=== PATIENT | female | born 1945 | race Caucasian/White ===

== ENCOUNTER 2020-08-27 22:26 | Inpatient (IN) | payer MEDICARE, MEDICAID, SELFPAY ==
[2020-08-27 22:41] VITALS: BP 113/66; PULSE 96; RESP 18; TEMP 36.6; O2SAT 99; BMI 31.8
--- NOTE | 2020-08-27 23:15 | PC.NURSE ---
spoke with son Berto concerning mother mental status. he stated she has become more and more confused as of late pt able to converse but drifts away from topic of conversation and vague at times.
--- NOTE | 2020-08-27 23:21 | XR_ITS ---
EXAMINATION: WRIST 3 VIEWS, RIGHT CLINICAL INFORMATION: Pain and deformity after fall. COMPARISON: None. TECHNIQUE: AP, lateral and oblique views of the right wrist are provided. FINDINGS: There is dorsal angulation to a distal right radial fracture. There is a nondisplaced ulnar styloid fracture. There is associated soft tissue swelling and mild anterior displacement of the pronator fat pad. The proximal carpal rows intact.. XR/XR wrist RT min 3V IMPRESSION: Dorsal angulation to a distal right radial fracture. Nondisplaced ulnar styloid fracture. Associated soft tissue swelling.
--- NOTE | 2020-08-27 23:21 | ECG_ITS ---
Test Reason : FALL Blood Pressure : / mmHG Vent. Rate : 092 BPM Atrial Rate : 092 BPM P-R Int : 122 ms QRS Dur : 068 ms QT Int : 338 ms P-R-T Axes : 082 024 034 degrees QTc Int : 417 ms Normal sinus rhythm Low voltage QRS Possible Inferior infarct , age undetermined Cannot rule out Anterior infarct , age undetermined Abnormal ECG No previous ECGs available Referred By: Maya Ngo Electronically Signed By:NATHAN ELIZABETH MD
--- NOTE | 2020-08-27 23:23 | ED.FALL ---
HPI - Fall General Chief Complaint: Fall Stated Complaint: fall Time Seen by Provider: 08/27/20 23:21 Source: patient and EMS Mode of arrival: EMS Limitations: altered mental status History of Present Illness HPI Narrative: 75 y/o female with history of anxiety, depression, hypothyroidism, hx prior falls MD complaint: fall Onset (ago): unknown Related Data Home Medications Medication Instructions Recorded Confirmed paroxetine HCl 30 mg tablet 30 mg PO DAILY 06/06/20 Previous Rx's Medication Instructions Recorded nabumetone 500 mg tablet 500 mg PO BID #180 tab 06/06/20 levothyroxine 25 mcg tablet 25 mcg PO DAILY #90 tab 06/07/20 clonazepam 1 mg tablet 1 mg PO .four times a day PRN 90 08/08/20 Days #315 tab Allergies Allergy/AdvReac Type Severity Reaction Status Date / Time Iodinated Contrast Media Allergy Severe UNKNOWN Verified 06/11/20 08:46 [CONTRAST, IV] nitrofurantoin Allergy Unknown UNKNOWN Verified 06/11/20 08:46 [From MACRODANTIN] phenytoin [Dilantin] Allergy Unknown anaphylaxis Verified 06/11/20 08:46 Sulfa (Sulfonamide Allergy Unknown anaphylaxis Verified 06/11/20 08:46 Antibiotics) [facility] Past Medical History Surgical History No pertinent past surgical history Family History Family History (Updated 06/11/20 @ 08:47 by Savita Greenberg [facility]) Father Stomach cancer Mother Medical history unknown Physical Exam Vital Signs: Vital Signs: Last Vital Signs Temp 97.9 F 08/27/20 22:41 Pulse 96 08/27/20 22:41 Resp 18 08/27/20 22:41 BP 113/66 08/27/20 22:41 Pulse Ox 99 08/27/20 22:41 Body Mass Index 31.8 Discharge Plan Discharge Prescriptions: No Action nabumetone 500 mg tablet 500 mg PO BID Qty: 180 RF: 0 paroxetine HCl 30 mg tablet 30 mg PO DAILY RF: 0 levothyroxine 25 mcg tablet 25 mcg PO DAILY Qty: 90 RF: 1 clonazepam 1 mg tablet 1 mg PO .four times a day PRN (Reason: anxiety) 90 Days Qty: 315 RF: 0
--- NOTE | 2020-08-27 23:41 | ED_ITS ---
HPI - General Adult General Chief complaint: Fall Stated complaint: fall Time Seen by Provider: 08/27/20 23:21 Source: patient and EMS Mode of arrival: EMS Limitations: altered mental status History of Present Illness HPI narrative: 75-year-old female who is brought to emergency room by ambulance for evaluation of fall with unknown down time. The patient appears to be delusional and is having difficulty recounting exactly when she fell. According to reverse unit operator fisherman report there was a wellness check by neighbors and they found the patient down. Patient reported to the paramedics that she fell a few days ago. The patient told me that she was sitting at the kitchen table and fell. She then has a vague story and states that she was crawling around on the floor with a bunch of infants and older children and had no access to water. At the time of my evaluation, she is oriented to person and place. She is not able to give me any other specific details about her fall. She is currently complaining of feeling very thirsty and complaining of pain in her right wrist. She has no other complaints. I spoke to the patient's son, Berto who can be reached at . He states that his mother lives alone and he was aware that the patient fell and was found in her bathroom. He is not certain when the patient fell. He states that his mother does not have a history of dementia or memory deficits. The patient does have a history of temporal lobe epilepsy, hypothyroidism, depression, migraines, and mood disorders. She also has nonspecific arthritis. Related Data Home Medications Medication Instructions Recorded Confirmed paroxetine HCl 30 mg tablet 30 mg PO DAILY 06/06/20 Previous Rx's Medication Instructions Recorded nabumetone 500 mg tablet 500 mg PO BID #180 tab 06/06/20 levothyroxine 25 mcg tablet 25 mcg PO DAILY #90 tab 06/07/20 clonazepam 1 mg tablet 1 mg PO .four times a day PRN 90 08/08/20 Days #315 tab Allergies Allergy/AdvReac Type Severity Reaction Status Date / Time Iodinated Contrast Media Allergy Severe UNKNOWN Verified 06/11/20 08:46 [CONTRAST, IV] nitrofurantoin Allergy Unknown UNKNOWN Verified 06/11/20 08:46 [From MACRODANTIN] phenytoin [Dilantin] Allergy Unknown anaphylaxis Verified 06/11/20 08:46 Sulfa (Sulfonamide Allergy Unknown anaphylaxis Verified 06/11/20 08:46 Antibiotics) Review of Systems Review of Systems: Yes Unobtainable due to mental status (The patient is delusional) Neurologic: Reports Abnormal speech present and Reports confusion Psychiatric: Psychiatric: Reports confusion [facility] Past Medical History [facility] Narrative: Past medical history is unobtainable secondary to her delusional state, she states that she is a former smoker, she denies alcohol and drug use. She states that she was living with her son but he suddenly in September of 2019. Surgical History No pertinent past surgical history Family History Family History (Updated 06/11/20 @ 08:47 by Savita Greenberg [facility]) Father Stomach cancer Mother Medical history unknown Social History Social History Advance Directives: No Physical Exam Vital Signs: Vital Signs: Last Vital Signs Temp 97.9 F 08/27/20 22:41 Pulse 96 08/27/20 22:41 Resp 18 08/27/20 22:41 BP 113/66 08/27/20 22:41 Pulse Ox 99 08/27/20 22:41 Body Mass Index 31.8 Const: General: cooperative, confusion and poor hygiene Orientation/consciousness: oriented to person, oriented to place and confusion Limitations: altered mental status (Delusional) HENMT: Head: Yes normal to inspection, Yes normocephalic and Yes atraumatic Ears: external ears normal General nose exam: Normal external nose present Face and sinus: Yes normal facial exam Mouth: Abnormal oral and palatal mucosa present (Very dry mucous membranes) Throat: Yes posterior oropharynx normal Eyes: Alignment and Position: alignment normal Periorbital: periorbital findings normal Eyelids: Yes eyelids normal Conjunctivae: conjunctivae normal Sclerae: scleral abnormal left hemorrhage (Lateral up to iris) Corneas: corneas normal Pupils: Equal, round and reactive pupils present EOM: EOMs intact bilaterally Direct Ophthalmoscopy: normal light reflex Neck: Neck: Yes full ROM, Yes no lymphadenopathy, Yes no meningeal signs, Yes trachea midline and Yes supple Chest: Chest palpation & inspection: normal inspection of the chest and normal palpation of entire chest wall Resp: Effort & Inspection: normal respiratory effort and able to speak in complete sentences Auscultation: clear to auscultation bilaterally Cardio: Rate: regular rate Rhythm: regular rhythm Heart sounds: S1 normal heart sound present, S2 normal heart sound present and no murmurs GI: Inspection: Yes normal to inspection Palpation (GI): Soft to palpation, nontender, no guarding, not rigid and No hepatosplenomegaly present : General: Yes no CVA tenderness Back/Spine/Pelvis: Back: no CVA tenderness Cervical Spine: normal cervical lordosis Thoracic/Lumbar Spine: thoracic and lumbar spine normal to inspection Skin: General skin exam: turgor decreased and other (Very dry skin) Lesions: no lesions Rashes: no rashes Wounds: no wounds Neuro: General: oriented to person, oriented to place, no meningeal signs and confusion Cranial nerves: Yes Equal, round and reactive pupils present Speech: Abnormal speech present Motor exam (neuro): 5/5 motor strength present throughout Extrem: General: Yes normal to inspection, Yes full ROM and Yes other (Tender right wrist) Psych: Appearance: well kempt Mental Status: mental status grossly normal Speech and movement: Normal speech and movement present Affect: normal affect Attitude: cooperative Thought process: Normal thought process present Thought content: Normal thought content present Course Course Course Narrative: 75-year-old female who presents emergency department for evaluation of unwitnessed fall at home with unwitnessed down time. On examination the patient's mucous membranes are very dry, she has poor skin turgor and very dry skin as well suggesting that she is volume depleted and deh ydrated. The patient does have some right wrist tenderness otherwise are no other acute traumatic injuries that I can find on exam. The patient was given water to drink. I did order CT scan of the head and neck, laboratory evaluation was also ordered. Patient will be treated with normal saline IV x1 L. 0213: The patient's CT scan head and cervical spine are unremarkable. X-ray of the right wrist did reveal a distal radius fracture with dorsal angulation and a nondisplaced ulnar fracture. This fracture was reduced by me with the assistance of the CHRISTOFER, Maya Ngo. Post reduction films appear to be adequate on my review. I did discuss the case with the covering hospitalist, Dr. Hernandez would like to admit the patient after the workup is complete. The patient's laboratory evaluation is pending, therefore the patient's care was turned over to my colleague, Dr. Shavonne Trejo. Twelve lead EKG done at 2358: Normal sinus rhythm with a rate of 92, normal SD, QRS and QTC intervals, Q-waves in lead V1 through V3 consistent with anterior infarct age undetermined, nonspecific T-wave abnormalities, no old EKG for comparison. Procedures Orthopedic Fracture Reduction Right distal radial/ulnar fracture: Time Out Performed: No Side: right Fracture Reduction Location: radius (Distal) and ulna (Distal) Analgesia: hematoma block (10 mL 1% lidocaine) Technique: traction/counter-traction Post Reduction X-rays Demonstrate: acceptable reduction Post-reduction neuro exam: intact Post-reduction vascular exam: intact Splint Applied: Yes Additional Comments: A 3 in by 35 in ortho glass sugar-tong splint was applied. Prior to applying the splint, a cast sleeve and 3 layers of cast pad ding were applied to the patient's arm. Medical Decision Making Lab Data Labs: Lab Results 08/28/20 Range/Units 02:10 Urine Color CHANELLE Urine Appearance HAZY Urine pH 6.0 (5.0-8.0) Ur Specific [place] >= 1.030 H (1.005-1.025) Urine Protein 2+ H (NEG-TRACE) MG/DL Urine Glucose (UA) NEG (NEG) MG/DL Urine Ketones >=80 (NEG) MG/DL Urine Blood 3+ H (NEG) Urine Nitrite NEG (NEG) Ur Leukocyte Esterase 1+ H (NEG) Urine RBC 1-4 (0) /HPF Urine WBC 15-29 H (0-4) /HPF Ur Squamous Epith Cells 2+ /LPF Urine Bacteria 3+ /LPF Urine Mucus 1+ /LPF Imaging Data CT head/cervical spine: Attestation: I personally reviewed and interpreted this imaging study as follows: My impression: No acute fracture or bleed Radiologist's impression: No evidence for acute intracranial injury. Age- appropriate cerebral atrophy. No evidence for acute injury to the cervical spine. Age-appropriate degenerative change within the lower cervical spine. Automated exposure control (Care Dose) Adjustment of the mA and/or kv according to patient size (this includes techniques or standardized protocols for targeted exams where dose is matched to indication / reason for exam; i.e. extremities or head). Dictated By:SAHARA CISNEROS MDSigned By:<Electronically signed by SAHARA CISNEROS MD in OV>08/28/20 0135 Right wrist: Attestation: I personally reviewed and interpreted this imaging study as follows: My impression: Dorsal angulation distal radius fracture nondisplaced ulnar styloid fracture Radiologist's impression: There is dorsal angulation to a distal right radial fracture. There is a nondisplaced ulnar styloid fracture. There is associated soft tissue swelling and mild anterior displacement of the pronator fat pad. The proximal carpal rows intact.. XR/XR wrist RT min 3V IMPRESSION: Dorsal angulation to a distal right radial fracture. Nondisplaced ulnar styloid fracture. Associated soft tissue swelling. Discharge Plan Discharge Prescriptions: No Action nabumetone 500 mg tablet 500 mg PO BID Qty: 180 RF: 0 paroxetine HCl 30 mg tablet 30 mg PO DAILY RF: 0 levothyroxine 25 mcg tablet 25 mcg PO DAILY Qty: 90 RF: 1 clonazepam 1 mg tablet 1 mg PO .four times a day PRN (Reason: anxiety) 90 Days Qty: 315 RF: 0
[2020-08-28] VITALS (7 sets, daily range): BP systolic 108–148; BP diastolic 46–78; PULSE 86–109; RESP 16–20; TEMP 36.4–36.8; O2SAT 95–99
--- NOTE | 2020-08-28 | CT_ITS ---
EXAMINATIONS: CT HEAD WITHOUT CONTRAST AND CT CERVICAL SPINE WITHOUT CONTRAST CLINICAL INFORMATION: Fall. Trauma. COMPARISON: None. TECHNIQUE: Contiguous helical images of the brain were obtained without IV contrast. Contiguous helical images of the cervical spine were obtained without IV contrast. Multiplanar reconstructions were performed. DLP: 1046 mGy-cm. FINDINGS: There are no pathologic extra-axial fluid collections. The lateral, third, fourth ventricles are prominent, though age-appropriate and concordant with the appearance of the sulci. There is no evidence for acute intraparenchymal hemorrhage or infarct. There is neither mass nor mass effect. There is no shift of midline structures. There is near complete opacification to the sphenoid sinus. The paranasal sinuses and mastoid air cells are otherwise clear. There are no osseous lesions. The cervical vertebra are in normal alignment. There is disc height loss at C4/C5, C5/C6 and C6/C7. Disc heights and vertebral heights are otherwise well-preserved. There are no fractures. There is no prevertebral soft tissue swelling. There is no cervical lymphadenopathy. The visualized lung apices are clear. CT/CT cervical spine wo con IMPRESSION: No evidence for acute intracranial injury. Age-appropriate cerebral atrophy. No evidence for acute injury to the cervical spine. Age-appropriate degenerative change within the lower cervical spine. Automated exposure control (Care Dose) Adjustment of the mA and/or kv according to patient size (this includes techniques or standardized protocols for targeted exams where dose is matched to indication / reason for exam; i.e. extremities or head).
--- NOTE | 2020-08-28 01:38 | XR_ITS ---
EXAMINATION: XR WRIST, RIGHT CLINICAL INFORMATION: Postreduction. COMPARISON: 08/27/2020. TECHNIQUE: AP and lateral views of the right wrist. FINDINGS: There is improved alignment to the known distal right radial and ulnar fractures status post reduction. Alignment is adequate. An overlying cast is in place which obscures fine bony detail. XR/XR wrist RT 2V IMPRESSION: Improved alignment in the distal right radial and ulnar fracture status post reduction with cast placement.
[2020-08-28 02:22] LABS: Appearance Urine HAZY; Color Urine AMBER; Glucose Urine UA NEG (NEG); Leukocyte Esterase Urine 1+ (NEG); Nitrite Urine NEG (NEG); Specific Gravity - Urine >= 1.030 (1.005-1.025); UACC Culture Trigger YES; Urine Blood 3+ (NEG); Urine Ketones >=80 MG/DL (NEG); Urine Protein 2+ MG/DL (NEG-TRACE)
[2020-08-28 02:30] LABS: Bacteria Urine 3+ /LPF; Mucus Urine 1+ /LPF; Squamous Epithelial Cell Urine 2+ /LPF
--- NOTE | 2020-08-28 02:37 | PC.NURSE ---
right hand fingers cool, purple, with decreased capillary refill. the cast is tight at the proximal end. provider made aware and was removed and redone with a 3inch. pt feels the relief already.
[2020-08-28 03:07] LABS: Basophils Percent Auto 0.1 % (0-2); Eosinophils Percent Auto 0.1 % (0-4); Hemoglobin 17.7 g/dl (12.0-16.0); Imm Gran Abs Auto 0.06 X10*3/uL (0.00-0.03); Imm Gran Pct Auto 0.4 % (0.0-0.4); Lymphocytes Absolute Auto 0.6 X10*3/uL (1.2-4.9); Lymphocytes Percent Auto 3.7 % (20-40); Mean Corpuscular Hemoglobin 30.1 pg (27.0-33.0); Mean Corpuscular Volume 88.3 fL (80-98); Mean Platelet Volume 9.5 fL (9.4-12.3); Monocytes Absolute Auto 1.7 X10*3/uL (0.1-1.2); Monocytes Percent Auto 10.8 % (2-11); Neutrophils Percent Auto 84.9 % (45-73); Platelet Count 277 X10*3/uL (160-400); Red Blood Count 5.89 X10*6/uL (4.20-5.50); Red Cell Distribution Width 13.4 % (11.0-16.0); SCAN SMEAR FLAG 1; White Blood Count 15.3 X10*3/uL (4.8-10.8)
[2020-08-28 03:20] LABS: MANUAL DIFF FLAG SCAN
[2020-08-28 03:21] LABS: INTERNATIONAL NORM RATIO 1.3 (0.9-1.1); Prothrombin Time 15.2 SEC (10.8-13.0)
--- NOTE | 2020-08-28 03:21 | PC.NURSE ---
pt is a difficult iv stick, 2 rn's attempted and a 3rd is going to try, all labs obtained and sent. provider is aware of this.
[2020-08-28 03:23] LABS: Partial Thromboplastin Time 33.3 SEC (24.1-38.0)
[2020-08-28 03:32] LABS: Lactic Acid 1.5 mmol/L (0.5-2.0)
[2020-08-28 03:39] LABS: Alanine Aminotransferase 71 U/L (0-31); Albumin Level 4.4 g/dL (3.5-5.0); Alkaline Phosphatase 61 U/L (39-117); Anion Gap 20 (12-20); Aspartate Amino Transferase 145 U/L (5-31); Bilirubin Direct 0.3 mg/dL (0.0-0.5); Bilirubin Total 1.1 mg/dL (0.0-1.0); Blood Urea Nitrogen 43 mg/dL (9-16); Calcium 9.5 mg/dL (8.4-10.2); Carbon Dioxide 22 mmol/L (22-29); Chloride 106 mmol/L (96-108); Creatinine Clr Calc Pharmacy 65.5; Estimated Glomerular Filt Rate > 60; Glucose Random 117 mg/dL (60-115); Magnesium 2.9 mg/dL (1.6-2.6); Potassium 4.2 mmol/L (3.3-5.1); Sodium 144 mmol/L (135-145); Total Protein 7.1 g/dL (6.5-8.0)
--- NOTE | 2020-08-28 03:39 | XR_ITS ---
EXAMINATION: CHEST 1 VIEW CLINICAL INFORMATION: Cough. COMPARISON: None. TECHNIQUE: An AP view of the chest is provided. FINDINGS: The cardiac silhouette is not enlarged. The mediastinal and hilar contours are unremarkable. There are neither pleural effusions nor pneumothoraces. There are no consolidations. The osseous structures are unremarkable. XR/XR chest 1V IMPRESSION: No evidence for acute disease.
[2020-08-28 03:40] LABS: SLIDE REVIEW VERIFIED
[2020-08-28 03:46] LABS: Troponin-I High Sensitivity 17.9 ng/L (<3.5-17.0)
[2020-08-28] MEDS: 0.9 % Sodium Chloride 1,000 ML 999 ML IVCONT (03:47)
--- NOTE | 2020-08-28 03:47 | US_ITS ---
EXAMINATION: ABDOMINAL ULTRASOUND LIMITED CLINICAL INFORMATION: Right upper quadrant pain. COMPARISON: None. TECHNIQUE: Real-time imaging of the right upper quadrant abdominal viscera. FINDINGS: PANCREAS: The visualized pancreatic head and body are normal in appearance. The remainder of the pancreas is obscured from visualization by the overlying bowel gas. LIVER: The liver is of normal size and echogenicity without intrahepatic biliary ductal dilation. Within the right lobe of the liver, there is an approximate 17 mm cyst. GALLBLADDER: There are a few small calculi within the gallbladder lumen. The gallbladder is physiologically distended without evidence of echogenic bile, polyps, wall thickening or pericholecystic fluid. COMMON BILE DUCT: Normal in caliber measuring 0.2 cm in diameter. RIGHT KIDNEY: Normal. No hydronephrosis. No renal calculi or focal parenchymal lesions. The kidney measures 10.2 cm in maximum dimension. FREE FLUID: None. US/US abdomen limited IMPRESSION: Cholelithiasis without sonographic manifestations of cholecystitis.
[2020-08-28] MEDS: cefTRIAXone sodium 1 GM in 0.9 % Sodium Chloride 50 ML IV (03:53)
[2020-08-28] MEDS: Lidocaine HCl 1 % 20 ML VIAL 5 ML INFILTRATI ×2 (03:54)
[2020-08-28 03:57] LABS: Thyroid Stimulating Hormone 0.89 uIU/mL (0.32-4.0)
[2020-08-28 04:27] LABS: COVID-19 Test Negative (Negative)
--- NOTE | 2020-08-28 10:48 | P.HPHOSP_ITS ---
History of Present Illness Date of Service: 08/28/20 Chief Complaint: Fall 75 year old women presenting after a fall. Patient was quite vague about what happened. Her fall time is unknown as well as her downtime. Apparently there was a wellness check from a neighbor and found the patient on the floor. Patient reported to the paramedics that she fell a few days ago. Apparently she was sitting at her kitchen table and fell. She may have been crawling around the floor with no access to food or water. Her son, Berto, was unaware of when the patient may have fallen. Berto who can be reached at . He states that his mother lives alone and he was aware that the patient fell and was found in her bathroom. He is not certain when the patient fell. He states that his mother does not have a history of dementia or memory deficits. Review of Systems Review of Systems: Denies any recent fever chills or decrease in appetite respiratory denies any shortness of breath coverage production cardiovascular is adjustment of any PND or edema gastrointestinal denies any dysphagia abdominal pain nausea vomiting or diarrhea genitourinary denies any dysuria frequency or hematuria musculoskeletal denies any joint pain or swelling neuropsych denies any weakness or seizures all other systems reviewed are negative [facility] Medical History (Updated 08/28/20 @ 12:31 by Anh Moreno NP) Anxiety Arthritis Depression Epilepsy Hypothyroidism Family History (Updated 06/11/20 @ 08:47 by Savita Greenberg [facility]) Father Stomach cancer Mother Medical history unknown Surgical History No pertinent past surgical history Social History Advance Directives: No Meds Allergies Allergy/AdvReac Type Severity Reaction Status Date / Time Iodinated Contrast Media Allergy Severe UNKNOWN Verified 06/11/20 08:46 [CONTRAST, IV] nitrofurantoin Allergy Unknown UNKNOWN Verified 06/11/20 08:46 [From MACRODANTIN] phenytoin [Dilantin] Allergy Unknown anaphylaxis Verified 06/11/20 08:46 Sulfa (Sulfonamide Allergy Unknown anaphylaxis Verified 06/11/20 08:46 Antibiotics) Home Medications Medication Instructions Recorded Confirmed Type paroxetine HCl 30 mg tablet 30 mg PO DAILY 06/06/20 08/28/20 History clonazepam 1 mg PO TID PRN 08/28/20 08/28/20 History levothyroxine 25 mcg PO DAILY@0630 08/28/20 08/28/20 History Physical Exam Vital Signs and Narrative: Vital Signs: Last Vital Signs Temp 98.3 F 08/28/20 02:00 Pulse 102 H 08/28/20 06:00 Resp 19 08/28/20 06:00 BP 132/65 08/28/20 06:00 Pulse Ox 98 08/28/20 06:00 Body Mass Index 31.8 Appearing disheveled head is normocephalic atraumatic eyes left eye injected, no visual disturbances, no appearance of corneal damage mouth throat mucous membranes are intact and dry neck is supple no lymphadenopathy, no JVD noted lung sounds are clear to auscultation heart regular rate rhythm, clear S1, S2 positive bowel sounds, abdomen is soft, nontender neuro patient is alert x3, vague, no focal deficits Results Labs CBC and Chem 7: 08/28/20 02:59 08/28/20 02:59 Labs: Laboratory Results - last 24 hr 08/28/20 08/28/20 08/28/20 02:10 02:59 02:59 MCV 88.3 MCH 30.1 MCHC 34.0 RDW 13.4 Plt Count 277 MPV 9.5 Immature Gran % (Auto) 0.4 Neut % (Auto) 84.9 H Lymph % (Auto) 3.7 L Baker % (Auto) 10.8 Eos % (Auto) 0.1 Baso % (Auto) 0.1 Lymph # (Auto) 0.6 L Baker # (Auto) 1.7 H Eos # (Auto) 0.0 Baso # (Auto) 0.0 Abs Immat Gran (auto) 0.06 H Absolute Neuts (auto) 13.0 H Absolute Nucleated RBC 0.000 Nucleated RBC % (auto) 0.0 Smear Tech's Comments VERIFIED PT 15.2 H INR 1.3 H APTT 33.3 Anion Gap Estim Creat Clear Calc Estimated GFR Random Glucose Lactic Acid Calcium Magnesium Total Bilirubin Direct Bilirubin AST ALT Alkaline Phosphatase Total Creatine Kinase Troponin I High Sens Total Protein Albumin TSH Urine Color CHANELLE Urine Appearance HAZY Urine pH 6.0 Ur Specific [place] >= 1.030 H Urine Protein 2+ H Urine Glucose (UA) NEG Urine Ketones >=80 Urine Blood 3+ H Urine Nitrite NEG Ur Leukocyte Esterase 1+ H Urine RBC 1-4 Urine WBC 15-29 H Ur Squamous Epith Cells 2+ Urine Bacteria 3+ Urine Mucus 1+ COVID-19 (JERZY) COVID-19 Clin Com 08/28/20 08/28/20 08/28/20 02:59 02:59 02:59 MCV MCH MCHC RDW Plt Count MPV Immature Gran % (Auto) Neut % (Auto) Lymph % (Auto) Baker % (Auto) Eos % (Auto) Baso % (Auto) Lymph # (Auto) Baker # (Auto) Eos # (Auto) Baso # (Auto) Abs Immat Gran (auto) Absolute Neuts (auto) Absolute Nucleated RBC Nucleated RBC % (auto) Smear Tech's Comments PT INR APTT Anion Gap 20 Estim Creat Clear Calc 65.5 Estimated GFR > 60 Random Glucose 117 H Lactic Acid 1.5 Calcium 9.5 Magnesium 2.9 H Total Bilirubin 1.1 H Direct Bilirubin 0.3 AST 145 H ALT 71 H Alkaline Phosphatase 61 Total Creatine Kinase 4459 H Troponin I High Sens 17.9 H Total Protein 7.1 Albumin 4.4 TSH 0.89 Urine Color Urine Appearance Urine pH Ur Specific [place] Urine Protein Urine Glucose (UA) Urine Ketones Urine Blood Urine Nitrite Ur Leukocyte Esterase Urine RBC Urine WBC Ur Squamous Epith Cells Urine Bacteria Urine Mucus COVID-19 (JERZY) COVID-19 [employer] Com 08/28/20 08/28/20 02:59 04:05 MCV MCH MCHC RDW Plt Count MPV Immature Gran % (Auto) Neut % (Auto) Lymph % (Auto) Baker % (Auto) Eos % (Auto) Baso % (Auto) Lymph # (Auto) Baker # (Auto) Eos # (Auto) Baso # (Auto) Abs Immat Gran (auto) Absolute Neuts (auto) Absolute Nucleated RBC Nucleated RBC % (auto) Smear Tech's Comments PT INR APTT Anion Gap Estim Creat Clear Calc Estimated GFR Random Glucose Lactic Acid Calcium Magnesium Total Bilirubin Direct Bilirubin AST ALT Alkaline Phosphatase Total Creatine Kinase Cancelled Troponin I High Sens Total Protein Albumin TSH Urine Color Urine Appearance Urine pH Ur Specific [place] Urine Protein Urine Glucose (UA) Urine Ketones Urine Blood Urine Nitrite Ur Leukocyte Esterase Urine RBC Urine WBC Ur Squamous Epith Cells Urine Bacteria Urine Mucus COVID-19 (JERZY) Negative COVID-19 Clin Com See Note Imaging Radiologist's Impressions: Impressions Wrist X-Ray 08/27/20 23:21 IMPRESSION: Dorsal angulation to a distal right radial fracture. Nondisplaced ulnar styloid fracture. Associated soft tissue swelling. Cervical Spine CT 08/28/20 00:00 IMPRESSION: No evidence for acute intracranial injury. Age-appropriate cerebral atrophy. No evidence for acute injury to the cervical spine. Age-appropriate degenerative change within the lower cervical spine. Automated exposure control (Care Dose) Adjustment of the mA and/or kv according to patient size (this includes techniques or standardized protocols for targeted exams where dose is matched to indication / reason for exam; i.e. extremities or head). Head CT 08/28/20 00:00 IMPRESSION: No evidence for acute intracranial injury. Age-appropriate cerebral atrophy. No evidence for acute injury to the cervical spine. Age-appropriate degenerative change within the lower cervical spine. Automated exposure control (Care Dose) Adjustment of the mA and/or kv according to patient size (this includes techniques or standardized protocols for targeted exams where dose is matched to indication / reason for exam; i.e. extremities or head). Wrist X-Ray 08/28/20 01:38 IMPRESSION: Improved alignment in the distal right radial and ulnar fracture status post reduction with cast placement. Chest X-Ray 08/28/20 03:39 IMPRESSION: No evidence for acute disease. Abdomen Ultrasound 08/28/20 03:47 IMPRESSION: Cholelithiasis without sonographic manifestations of cholecystitis. Assessment and Plan (1) Fall: Qualifiers: Encounter type: initial encounter Qualified Code(s): W19.XXXA - Unspecified fall, initial encounter Status: Acute (2) Rhabdomyolysis: Qualifiers: Encounter type: initial encounter Rhabdomyolysis type: traumatic Qualified Code(s): T79.6XXA - Traumatic ischemia of muscle, initial encounter Status: Acute (3) Acute UTI: Status: Acute 75-year-old woman presented to the ER after a fall. She is noted to have mild rhabdomyolysis, sepsis secondary to UTI and transaminitis. Sepsis. Tachycardia, leukocytosis, normal lactic acid. Follow blood cultures. UTI. Rocephin, follow urine cultures. Rhabdomyolysis. Secondary to fall. IV fluids, check CK tomorrow, physical therapy evaluation. Transaminitis. Likely related to dehydration, follow liver function, IV fluids. Fall, weakness. Physical therapy evaluation. Hypothyroidism. Continue levothyroxine Dementia/anxiety. Continue clonazepam and paroxetine. DVT prophylaxis with heparin Discussed witH Dr. Bunny Boateng code
[2020-08-28] MEDS: Heparin Sodium,Porcine 5,000 UNIT/ML VIAL 5000 UNIT SUBCUT (15:12)
[2020-08-28] MEDS: 0.9 % Sodium Chloride 1,000 ML 100 ML IVCONT (15:13)
--- NOTE | 2020-08-28 17:13 | PM.EVENT ---
Event Note Date of Service: 08/28/20 Event Note: 75-year-old female with past medical history of hypothyroidism, depression ,temporal lobe epilepsy, migraine and mood disorder was brought into [facility] after patient was found on the floor by a neighbor, at present patient is unable to provide any meaningful history On examination Left eye subconjunctival hemorrhage Lungs clear to auscultation Extremities no pitting edema CT head and cervical spine showed no fracture X-ray right wrist showed a distal radius fracture with dorsal angulation and a nondisplaced a left fracture Abdominal ultrasound showed cholelithiasis without cholecystitis EKG normal sinus rhythm WBC 15.3, hematocrit 52, BUN 43 stable electrolytes, blood sugar 117 CPK 4459, troponin 17.9, AST 145, ALT 71 UA with 15-29 WBC no nitrates 3+ bacteria TSH 0.89 Assessment and plan Acute encephalopathy with no prior history of dementia question related to urinary tract infection, dehydration will treat patient with IV fluids IV antibiotic follow urine and blood culture, follow clinical course, CT head showed no acute pathology Right wrist fracture status post reduction in the ER outpatient ortho follow-up Elevated CPK due to fall treat with IV fluid follow labs Unsteady gait and fall obtain PT eval
--- NOTE | 2020-08-28 19:55 | PC.NURSE ---
pt assist of 1 to bedside commode. pt report given to RN on floor, pt ready for transport.
[2020-08-29] MEDS: 0.9 % Sodium Chloride 1,000 ML 100 ML IVCONT ×2 (03:30→12:44)
[2020-08-29] MEDS: cefTRIAXone sodium 1 GM in 0.9 % Sodium Chloride 50 ML IV (06:23)
[2020-08-29] MEDS: Levothyroxine Sodium 25 MCG TABLET PO (06:24)
[2020-08-29 06:50] LABS: MANUAL DIFF FLAG NO
[2020-08-29 07:07] LABS: Basophils Percent Auto 0.1 % (0-2); Eosinophils Percent Auto 0.1 % (0-4); Hematocrit 43.2 % (37-47); Hemoglobin 14.3 g/dl (12.0-16.0); Imm Gran Abs Auto 0.04 X10*3/uL (0.00-0.03); Imm Gran Pct Auto 0.5 % (0.0-0.4); Lymphocytes Absolute Auto 0.8 X10*3/uL (1.2-4.9); Lymphocytes Percent Auto 10.1 % (20-40); Mean Corpuscular HGB Conc 33.1 g/dl (31.0-35.0); Mean Corpuscular Hemoglobin 29.6 pg (27.0-33.0); Mean Corpuscular Volume 89.4 fL (80-98); Mean Platelet Volume 10.1 fL (9.4-12.3); Monocytes Absolute Auto 0.8 X10*3/uL (0.1-1.2); Monocytes Percent Auto 11.2 % (2-11); Neutrophils Absolute Auto 5.8 X10*3/uL (2.0-8.3); Platelet Count 207 X10*3/uL (160-400); Red Blood Count 4.83 X10*6/uL (4.20-5.50); Red Cell Distribution Width 13.3 % (11.0-16.0); White Blood Count 7.5 X10*3/uL (4.8-10.8)
[2020-08-29 07:23] LABS: Anion Gap 13 (12-20); Blood Urea Nitrogen 29 mg/dL (9-16); Carbon Dioxide 19 mmol/L (22-29); Chloride 112 mmol/L (96-108); Creatinine Clr Calc Pharmacy 87.6; Estimated Glomerular Filt Rate > 60; Glucose Random 95 mg/dL (60-115); Sodium 140 mmol/L (135-145)
[2020-08-29 07:31] LABS: Calcium 7.5 mg/dL (8.4-10.2)
[2020-08-29] MEDS: PARoxetine HCL 30 MG TABLET PO (07:53)
[2020-08-29 07:58] VITALS: BP 131/69; PULSE 83; RESP 16; TEMP 36.2; O2SAT 97
[2020-08-29 08:35] LABS: Alanine Aminotransferase 44 U/L (0-31); Aspartate Amino Transferase 68 U/L (5-31)
--- NOTE | 2020-08-29 09:31 | P.CDIC_ITS ---
CDI Concurrent Query Service Date: 08/29/20 Documentation Clarification: Please clarify if you are treating a proba ble/suspected/likely or confirmed: Urinary tract infection Sepsis due to UTI (Resolved, POA) Sepsis due to UTI (Txt, rule out) Please specify if known Provider Response: Other Other Diagnosis: Sepsis due to UTI written in the chart PLEASE DO NOT DELETE/MODIFY EXISTING CONTENT Additional information is needed in order to code to the highest accuracy and appropriate Severity of Illness (SOI). Please clarify the information noted below in your progress notes and discharge summary. Risk Factors/Clinical Indicators/Treatments H&P: Assessment - Sepsis, tachycardia, leukocytosis, normal lactic acid. Follow up b/c IV antibiotics, IV fluids WBC 15.3 Urine hazy, wbc 15-29, Bacteria 3+ CDS: Chiquis Montaño CCS, CDIS Contact Number: [phone] Please Review the information above and exercise your independent professional judgment in responding to the query. If you concur, pleas document in the PROGRESS NOTES and DISCHARGE SUMMARY. If you do not agree with the query, please document in the query above. THIS QUERY IS PART OF THE PERMANENT MEDICAL RECORD
--- NOTE | 2020-08-29 11:12 | MHC.CM.PN ---
NURSE VESSEL MASTER NOTE ELECTRONIC MEDICAL RECORD REVIEWED ALONG WITH CASE DISCUSSED WITH THE HOSPITALIST AND STAFF NURSE. MET WITH PATIENT SHE WAS ALERT ,ORIENTATED SHE REPORTED TO ME THAT SHE LIVES ALONE AT THE [facility] IN [place] , SHE HAS NO VNA SERVICES IN THE HOME NOR DOES SHE HAVE ANY DME SERVICES, SHE HAS INDEPENDENT AND DOES NOT HAVE A CANE OR WALKER AND REFUSES TO HAVE ONE, SHE RECENTLY HAS HAD A FEW FALLS WITH THIS ONE RESULTING IN ALIGNMENT DISTAL RIGHT RADIAL ULNAR FRACTURE POST REDUCTION AND CASTING DONE IN WITH PATIENT PERMISSION I TRIED TO CONTACT HER PRIMARY CONTACT JESUS ALBERTO FISHER LATER FOUND OUT FROM HER OTHER SON THAT JESUS ALBERTO HAS LAST YEAR. I CALLED TO HER OTHER SON BROOK RESENDIZ WHOM REPORTED THAT HE IS HER HEALTH CARE PROXY WELL HER POWER OF CHEMICAL SUPERVISOR. HE IS AWARE THAT SHE HAS FALLED RECENTLY AND HAS CONCERNS SHE HAS SHOWN SOME DECLINE IN HER ADLS AND HOUSEKEEPING , HER NEIGHBOR S HELP BRING HER HER GROCERIES AND ALSO GET HER PRESCRIPTIONS FILLED FOR HER , SHE REPORTED SHE SEES DR JULIO CESAR LOAIZA HER PCP AND CHRISTINA NOT SEE ANYONE FOR HER ANXIETY R DEPRESSION. HER PCP WRITES HER SCRIPTS. SERGEI HER SON HAS REACHED OUT TO THE [facility] REGARDING [facility] ELIGIBILITY AND HAS NOT BEEN ABLE TO REACH ANY ONE SHE WILL BE HAVING PHYSICAL AND OCCUPATIONAL THERAPY TO SEE IF SHE WOULD BE ABLE TO BE DISCHARGED HOME WITH VNA (RN-PT-OT) OR NEED SHORT TERM REHAB I SPOKE TO PATIENT AND HER SON AND IMITATED REFERRALS TO THE FOLLOWING FACILITIES [facility], [facility] AND [facility] VS A FEW AREA VNA ([facility] ,[facility]) DISCHARGE PLAN ;BARRIER TO BEING DISCHARGED HOME WITH VNA(IS INFORMED THAT PATIENT HAS NOT SEEN DR EMMA LOAIZA IN OVER A YEAR SO NOT IS ELIGEABILITY FOR HOME SERVICES ([facility] IS NOT CONTRACTED WITH PATIENT S INSURANCE 2, STR [facility], [facility], [facility], [facility],[place] OR [facility] REFERRAS IN IATED 3[facility] REFERRAL TO [facility] SERGEI HAS REPORTED THAT HE HAS JUST FOUND OUT THAT HIS MOTHER ONLY HAS ENOUGH MONEY TO PAY FOR HER APARTMENT FOR A FEW MONTHS
[2020-08-29] MEDS: Heparin Sodium,Porcine 5,000 UNIT/ML VIAL 5000 UNIT SUBCUT (12:42)
[2020-08-29 13:41] VITALS: BMI 31.8
[2020-08-29 15:41] VITALS: BP 140/71; PULSE 80; RESP 18; TEMP 36.6; O2SAT 92
--- NOTE | 2020-08-29 16:02 | P.PNIM_ITS ---
Subjective Subjective Date of Service: 08/30/20 Interval History: Patient unable to provide any meaningful history, due to confusion, is aware she is at [facility] denies pain, no acute issues overnight. ROS unable to obtain due to confusion Physical Exam Vital Signs: Vital Signs: Last Vital Signs Temp 97.9 F 08/29/20 15:41 Pulse 80 08/29/20 15:41 Resp 18 08/29/20 15:41 BP 140/71 H 08/29/20 15:41 Pulse Ox 92 08/29/20 15:41 Body Mass Index 31.8 General patient sitting on bed, in no acute distress. Left eye subconjunctival hemorrhage Neck supple no JVD. CVS regular rate rhythm, Respiratory lungs clear to auscultation, no respiratory distress, no wheeze, no rhonchi. Gastrointestinal abdomen soft, nontender, bowel sounds audible, Extremities no cyanosis or edema. Neuro awake, alert to place, person, confused, nonfocal exam, moving all 4 extremity, speech clear. Objective Data Current Medications Generic Name Dose Route Start Last Admin Trade Name Freq PRN Reason Stop Dose Admin Clonazepam 1 mg 08/28/20 12:24 Clonazepam 1 Mg Tablet PO TID PRN anxiety Heparin Sodium (Porcine) 5,000 unit 08/28/20 12:30 08/29/20 12:42 Heparin Sodium,Porcine 5,000 Unit/Ml Vial SUBCUT 5,000 unit Q12H NICANOR Administration Sodium Chloride 1,000 mls @ 100 mls/hr 08/28/20 12:30 08/29/20 12:44 Ns IVCONT 100 mls/hr .Q10H NICANOR Administration Ceftriaxone Sodium 1 gm/ 50 mls @ 100 mls/hr 08/29/20 06:00 08/29/20 06:59 Sodium Chloride IV Infused Q24H NICANOR Infusion Levothyroxine Sodium 25 mcg 08/29/20 06:30 08/29/20 06:24 Levothyroxine Sodium 25 Mcg Tablet PO 25 mcg DAILY@0630 NICANOR Administration Ondansetron HCl 4 mg 08/28/20 12:24 Ondansetron Hcl 4 Mg/2 Ml Vial IVPUSH Q8H PRN Nausea and Vomiting Paroxetine HCl 30 mg 08/29/20 09:00 08/29/20 07:53 Paroxetine Hcl 30 Mg Tablet PO 30 mg DAILY NICANOR Administration Pharmacy Consult 1 each 08/28/20 07:47 Consult Rx Perform Med Rec MISCELLANE ONCE PRN Consult order Sodium Chloride 3 ml 08/28/20 16:00 08/29/20 15:17 0.9 % Sodium Chloride Flush 3 Ml Syringe IVFLUSH Not Given QSHIFT [facility] Labs CBC & Chem 7: 08/29/20 06:30 08/29/20 06:30 Microbiology Microbiology Results: Microbiology 08/28/20 Unknown Urine clean catch - Clean Catch Midstream Urine Culture - Final 08/28/20 03:02 Blood - Venous Blood Culture - Preliminary No growth after 24 hours. 08/28/20 02:10 Blood - Venous Blood Culture - Preliminary No growth after 24 hours. Assessment and Plan (1) Acute encephalopathy: Status: Acute (2) Sepsis: Status: Acute (3) Fall: Status: Acute (4) Closed fracture of right distal radius and ulna: Status: Acute (5) Acute UTI: Status: Acute (6) Rhabdomyolysis: Status: Acute Assessment and Plan: 75-year-old woman presented to the ER after a fall. She is noted to have mild rhabdomyolysis, sepsis secondary to UTI and transaminitis. Sepsis patient met sepsis criteria due to tachycardia leukocytosis and positive UA, however urine culture and blood culture came back negative therefore patient does not have sepsis related to UTI Likely tachycardia was related to anxiety, and dehydration and leukocytosis was reactive. Rhabdomyolysis. Secondary to fall. Creatinine kinase is trending down patient is tolerating by mouth therefore will discontinue IV fluid. Right wrist fracture status post reduction in the emergency room would recommend outpatient ortho follow-up. Acute encephalopathy Patient appears confused lives alone and helped by neighbor, son lives in [place] no prior history of dementia, CT head showed no acute pathology, TSH normal, normal B12, folate in the past Question related to her psych medication, early dementia, continue to follow clinical course. Transaminitis. Likely related to dehydration, LFTs trending down no abdominal pain, no nausea vomiting showed cholelithiasis without sonographic manifest ations of cholecystitis. Unsteady gait and Fall, patient seen by Physical therapy and they are cj mmending a short-term rehab Hypothyroidism. Continue levothyroxine TSH 0.89 Dementia/anxiety. Continue clonazepam and paroxetine. DVT prophylaxis with heparin
[2020-08-29 23:42] VITALS: BP 145/66; PULSE 88; RESP 15; TEMP 37; O2SAT 97
[2020-08-29] MEDS: 0.9 % Sodium Chloride Flush 3 ML SYRINGE IVFLUSH (23:59)
[2020-08-30] MEDS: Heparin Sodium,Porcine 5,000 UNIT/ML VIAL 5000 UNIT SUBCUT ×2 (00:07→14:45)
[2020-08-30] MEDS: cefTRIAXone sodium 1 GM in 0.9 % Sodium Chloride 50 ML IV (05:55)
[2020-08-30] MEDS: Levothyroxine Sodium 25 MCG TABLET PO (05:56)
[2020-08-30 07:36] VITALS: BP 149/64; PULSE 72; RESP 17; TEMP 36.6; O2SAT 97
[2020-08-30] MEDS: PARoxetine HCL 30 MG TABLET PO (08:33)
[2020-08-30] MEDS: 0.9 % Sodium Chloride Flush 3 ML SYRINGE IVFLUSH (08:33)
--- NOTE | 2020-08-30 13:01 | MHC.CM.PN ---
CM met with Patient and spoke with Son/HCP/Berto @ [phone] regarding dc planning; both are in agreement to STR [facility]. PAWEL has asked [facility] to begin process for insurance Authorization. CM will follow.
[2020-08-30 15:16] VITALS: BP 159/70; PULSE 84; RESP 18; TEMP 36.9; O2SAT 96
--- NOTE | 2020-08-30 15:28 | MHC.CM.PN ---
Patient has been medically cleared for dc to SNF today. Patient will dc to [facility] today at 5 PM, via [facility]. Patient and Son/HCP/Berto are aware of and in agreement with the dc plan.Last IMM addressed on 08/28/20.
--- NOTE | 2020-08-30 15:49 | PM.DS ---
DS: Providers Provider Date of Service: 08/30/20 Date of admission: 08/28/20 12:24 Primary care physician: Lizette Armenta MD DS: Diagnosis Discharge Diagnosis (1) Acute encephalopathy: Status: Acute (2) Sepsis: Status: Acute (3) Fall: Status: Acute (4) Closed fracture of right distal radius and ulna: Status: Acute (5) Acute UTI: Status: Acute (6) Rhabdomyolysis: Status: Acute DS: Medications Discharge Medications Home Medications: Home Medications Medication Instructions Recorded Confirmed paroxetine HCl 30 mg tablet 30 mg PO DAILY 06/06/20 08/28/20 clonazepam 1 mg PO TID PRN 08/28/20 08/28/20 levothyroxine 25 mcg PO DAILY@0630 08/28/20 08/28/20 DS: Summary Hospital Course Hospital Course: History of presenting illness Chief Complaint: Fall 75 year old women presenting after a fall. Patient was quite vague about what happened. Her fall time is unknown as well as her downtime. Apparently there was a wellness check from a neighbor and found the patient on the floor. Patient reported to the paramedics that she fell a few days ago. Apparently she was sitting at her kitchen table and fell. She may have been crawling around the floor with no access to food or water. Her son, Berto, was unaware of when the patient may have fallen. Berto who can be reached at . He states that his mother lives alone and he was aware that the patient fell and was found in her bathroom. He is not certain when the patient fell. He states that his mother does not have a history of dementia or memory deficits. Past medical history Anxiety Arthritis Depression Epilepsy Hypothyroidism Hospital course 75-year-old woman presented to the ER after a fall and was noted to have mild rhabdomyolysis, transaminitis and positive UA. Patient was initially placed on IV antibiotic for possibility of urinary tract infection and sepsis however urine culture came back negative her tachycardia was likely due to anxiety and leukocytosis was reactive patient initially was confused but over the course of last 24 hours patient has been more awake alert answering questions appropriately seems to be at her baseline her workup including TSH B12 folate and CT head showed no abnormality question she has mild cognitive impairment and needs to be followed closely. Rhabdomyolysis. Secondary to fall. Creatinine kinase improved with hydration. Right wrist fracture status post reduction in the emergency room recommend outpatient ortho follow-up. Acute encephalopathy Resolved was likely related to fall dehydration and pain patient seems to be at baseline and has mild cognitive impairment. Transaminitis. Likely related to dehydration, LFTs trending down no abdominal pain, no nausea vomiting abdominal ultrasound showed cholelithiasis without sonographic manifestations of cholecystitis. Unsteady gait and Fall, patient seen by Physical therapy and they recommended short-term rehab patient being discharged to rehab facility for less than 30 days Hypothyroidism. Continue levothyroxine TSH 0.89 Dementia/anxiety. Continue clonazepam and paroxetine. Time Spent with Patient Time attestation: Total time spent providing and/or coordinating discharge services: Discharge coordination time: Greater than 30 minutes Physical Exam Vital Signs: Vital Signs: Last Vital Signs Temp 98.5 F 08/30/20 15:16 Pulse 84 08/30/20 15:16 Resp 18 08/30/20 15:16 BP 159/70 H 08/30/20 15:16 Pulse Ox 96 08/30/20 15:16 Body Mass Index 31.8 General patient sitting on bed, in no acute distress. Left eye subconjunctival hemorrhage Neck supple no JVD. CVS regular rate rhythm, Respiratory lungs clear to auscultation, no respiratory distress, no wheeze, no rhonchi. Gastrointestinal abdomen soft, nontender, bowel sounds audible, Extremities no cyanosis or edema. Neuro awake, alert , nonfocal exam, moving all 4 extremity, speech clear. DS: Data Data Completed and Pending Labs on day of discharge: Laboratory Tests 08/28/20 08/28/20 08/28/20 02:10 02:59 02:59 WBC 15.3 H RBC 5.89 H Hgb 17.7 H Hct 52.0 H MCV 88.3 MCH 30.1 MCHC 34.0 RDW 13.4 Plt Count 277 MPV 9.5 Immature Gran % (Auto) 0.4 Neut % (Auto) 84.9 H Lymph % (Auto) 3.7 L Walker % (Auto) 10.8 Eos % (Auto) 0.1 Baso % (Auto) 0.1 Lymph # (Auto) 0.6 L Walker # (Auto) 1.7 H Eos # (Auto) 0.0 Baso # (Auto) 0.0 Abs Immat Gran (auto) 0.06 H Absolute Neuts (auto) 13.0 H Absolute Nucleated RBC 0.000 Nucleated RBC % (auto) 0.0 Smear Tech's Comments VERIFIED PT 15.2 H INR 1.3 H APTT 33.3 Sodium Potassium Chloride Carbon Dioxide Anion Gap BUN Creatinine Estim Creat Clear Calc Estimated GFR Random Glucose Lactic Acid Calcium Magnesium Total Bilirubin Direct Bilirubin AST ALT Alkaline Phosphatase Total Creatine Kinase Troponin I High Sens Total Protein Albumin TSH Urine Color CHANELLE Urine Appearance HAZY Urine pH 6.0 Ur Specific [place] >= 1.030 H Urine Protein 2+ H Urine Glucose (UA) NEG Urine Ketones >=80 Urine Blood 3+ H Urine Nitrite NEG Ur Leukocyte Esterase 1+ H Urine RBC 1-4 Urine WBC 15-29 H Ur Squamous Epith Cells 2+ Urine Bacteria 3+ Urine Mucus 1+ COVID-19 (JERZY) COVID-19 [employer] 08/28/20 08/28/20 08/28/20 02:59 02:59 02:59 WBC RBC Hgb Hct MCV MCH MCHC RDW Plt Count MPV Immature Gran % (Auto) Neut % (Auto) Lymph % (Auto) Walker % (Auto) Eos % (Auto) Baso % (Auto) Lymph # (Auto) Walker # (Auto) Eos # (Auto) Baso # (Auto) Abs Immat Gran (auto) Absolute Neuts (auto) Absolute Nucleated RBC Nucleated RBC % (auto) Smear Tech's Comments PT INR APTT Sodium 144 Potassium 4.2 Chloride 106 Carbon Dioxide 22 Anion Gap 20 BUN 43 H Creatinine 0.79 Estim Creat Clear Calc 65.5 Estimated GFR > 60 Random Glucose 117 H Lactic Acid 1.5 Calcium 9.5 Magnesium 2.9 H Total Bilirubin 1.1 H Direct Bilirubin 0.3 AST 145 H ALT 71 H Alkaline Phosphatase 61 Total Creatine Kinase 4459 H Troponin I High Sens 17.9 H Total Protein 7.1 Albumin 4.4 TSH 0.89 Urine Color Urine Appearance Urine pH Ur Specific [place] Urine Protein Urine Glucose (UA) Urine Ketones Urine Blood Urine Nitrite Ur Leukocyte Esterase Urine RBC Urine WBC Ur Squamous Epith Cells Urine Bacteria Urine Mucus COVID-19 (JERZY) COVID-19 [employer] [facility] 08/28/20 08/28/20 08/29/20 02:59 04:05 06:30 WBC 7.5 RBC 4.83 Hgb 14.3 Hct 43.2 MCV 89.4 MCH 29.6 MCHC 33.1 RDW 13.3 Plt Count 207 D MPV 10.1 Immature Gran % (Auto) 0.5 H Neut % (Auto) 78.0 H Lymph % (Auto) 10.1 L Walker % (Auto) 11.2 H Eos % (Auto) 0.1 Baso % (Auto) 0.1 Lymph # (Auto) 0.8 L Walker # (Auto) 0.8 Eos # (Auto) 0.0 Baso # (Auto) 0.0 Abs Immat Gran (auto) 0.04 H Absolute Neuts (auto) 5.8 Absolute Nucleated RBC 0.000 Nucleated RBC % (auto) 0.0 Smear Tech's Comments PT INR APTT Sodium Potassium Chloride Carbon Dioxide Anion Gap BUN Creatinine Estim Creat Clear Calc Estimated GFR Random Glucose Lactic Acid Calcium Magnesium Total Bilirubin Direct Bilirubin AST ALT Alkaline Phosphatase Total Creatine Kinase Cancelled Troponin I High Sens Total Protein Albumin TSH Urine Color Urine Appearance Urine pH Ur Specific [place] Urine Protein Urine Glucose (UA) Urine Ketones Urine Blood Urine Nitrite Ur Leukocyte Esterase Urine RBC Urine WBC Ur Squamous Epith Cells Urine Bacteria Urine Mucus COVID-19 (JERZY) Negative COVID-19 Clin Com See Note 08/29/20 06:30 WBC RBC Hgb Hct MCV MCH MCHC RDW Plt Count MPV Immature Gran % (Auto) Neut % (Auto) Lymph % (Auto) Walker % (Auto) Eos % (Auto) Baso % (Auto) Lymph # (Auto) Walker # (Auto) Eos # (Auto) Baso # (Auto) Abs Immat Gran (auto) Absolute Neuts (auto) Absolute Nucleated RBC Nucleated RBC % (auto) Smear Tech's Comments PT INR APTT Sodium 140 Potassium 4.0 Chloride 112 H Carbon Dioxide 19 L Anion Gap 13 BUN 29 H Creatinine 0.59 Estim Creat Clear Calc 87.6 Estimated GFR > 60 Random Glucose 95 Lactic Acid Calcium 7.5 L D Magnesium Total Bilirubin Direct Bilirubin AST 68 H ALT 44 H Alkaline Phosphatase Total Creatine Kinase 1045 H D Troponin I High Sens Total Protein Albumin TSH Urine Color Urine Appearance Urine pH Ur Specific [place] Urine Protein Urine Glucose (UA) Urine Ketones Urine Blood Urine Nitrite Ur Leukocyte Esterase Urine RBC Urine WBC Ur Squamous Epith Cells Urine Bacteria Urine Mucus COVID-19 (JERZY) COVID-19 Clin Com Preliminary micro results at discharge 08/28/20 03:02 Blood Culture - Preliminary Blood - Venous No growth after 48 hours. 08/28/20 02:10 Blood Culture - Preliminary Blood - Venous No growth after 48 hours. Discharge Plan Discharge Patient Disposition: [facility] Referrals: [facility] [Outside] Lizette Hernandez MD [Primary Care Provider] - Discharge Medications: Continued paroxetine HCl 30 mg tablet 30 mg PO DAILY RF: 0 clonazepam 1 mg tablet 1 mg PO TID PRN (Reason: anxiety) RF: 0 levothyroxine 25 mcg tablet 25 mcg PO DAILY@0630 RF: 0 Discontinued nabumetone 500 mg tablet 500 mg PO BID Qty: 180 RF: 0 Discharge Orders: Discharge Order (Routine); Ordered 08/30/20 Ordered By: Uma Hollis Diet: advance to usual diet Activity on Discharge: As tolerated Stand Alone Forms: Patient Portal Discharge page Care Plan Goals: Participate in physical therapy and occupational therapy Health Concerns: Unsteady gait fall right forearm fracture. Plan of Treatment: Outpatient follow-up with primary care physician patient being discharged to rehab facility for less than 30 days.
== END 2020-08-30 19:05 | disposition skilled nursing facility (03) | DRG 565 ==
LOC: HO.ED 08-28 03:13 → HO.EDOVER 08-28 12:44 → HO.S3 08-28 19:03
PROVIDERS: Nurse Practitioner Acute Care; Physician Assistant; Student in an Organized Health Care Education/Training Program; Admitting Provider Hospitalist; Emergency Provider Emergency Medicine Emergency Medical Services; PCP Internal Medicine; Visit Provider Hospitalist
DX: T79.6XXA Traumatic ischemia of muscle, initial encounter (principal); S52.501A Unspecified fracture of the lower end of right radius, initial encounter for closed fracture; S52.601A Unspecified fracture of lower end of right ulna, initial encounter for closed fracture; G93.40 Encephalopathy, unspecified; W18.30XA Fall on same level, unspecified, initial encounter; Y93.9 Activity, unspecified; Y92.002 Bathroom of unspecified non-institutional (private) residence as the place of occurrence of the external cause; Y99.9 Unspecified external cause status; F32.9 Major depressive disorder, single episode, unspecified; F41.9 Anxiety disorder, unspecified; R26.81 Unsteadiness on feet; F03.90 Unspecified dementia, unspecified severity, without behavioral disturbance, psychotic disturbance, mood disturbance, and anxiety; G40.909 Epilepsy, unspecified, not intractable, without status epilepticus; E03.9 Hypothyroidism, unspecified; R74.01 Elevation of levels of liver transaminase levels; Z20.822 Contact with and (suspected) exposure to COVID-19; E86.0 Dehydration; Z88.2 Allergy status to sulfonamides; Z79.890 Hormone replacement therapy; Z79.899 Other long term (current) drug therapy
CPT/HCPCS: 36415; 70450; 71045; 72125; 73100; 73110; 76705; 80048; 80076; 81001; 81003; 82550; 83605; 83735; 84443; 84450; 84460; 84484; 85025; 85610; 85730; 87040; 87086; 87635; 93005; 96361; 96365; 96375; 97110; 97116; 97162; 97166; 97535; 99285; J0696

== ENCOUNTER 2020-09-19 14:22 | Outpatient (REF) | payer MEDICARE, MEDICAID, SELFPAY | END 2020-09-19 14:23 | disposition home or self-care (01) | LOC: HO.HOSX 14:22 | PROVIDERS: Visit Provider Physician Assistant | DX: Z13.89 Encounter for screening for other disorder (principal) ==

== ENCOUNTER 2020-09-20 12:07 | Outpatient (REF) | payer MEDICARE, SELFPAY ==
--- NOTE | ~2020-09-20 | XR_ITS ---
EXAMINATION: XR WRIST, RIGHT CLINICAL INFORMATION: Fracture follow up. COMPARISON: Prior x-rays, latest 08/28/2020. TECHNIQUE: PA, lateral, and oblique views of the right wrist. FINDINGS: Redemonstrated distal radial fracture, which is displaced and impacted, without appreciable change in position and alignment. Question callus formation medially and volarly. Mildly displaced ulnar styloid fracture is stable. Overlying cast material limits evaluation. First CMC joint arthritis noted. No new acute fractures identified. XR/XR wrist RT min 3V IMPRESSION: Stable positioning and alignment of the known distal radial fracture. Question callus formation associated with the distal radial fracture.
== END 2020-09-20 12:08 | disposition home or self-care (01) ==
LOC: HO.XRAY 12:07
PROVIDERS: Visit Provider Emergency Medicine
DX: S52.601A Unspecified fracture of lower end of right ulna, initial encounter for closed fracture (principal); S52.501A Unspecified fracture of the lower end of right radius, initial encounter for closed fracture
CPT/HCPCS: 25600; 73110; 99202

== ENCOUNTER 2020-09-25 15:44 | Inpatient (IN) | payer MEDICARE, MEDICAID, SELFPAY ==
--- NOTE | ~2020-09-25 | MR_ITS ---
EXAMINATION: MR BRAIN WITHOUT CONTRAST CLINICAL INFORMATION: Expressive aphasia. COMPARISON: Head CT from 08/28/2020. TECHNIQUE: Multiplanar, multisequence imaging of the brain was performed without contrast. FINDINGS: No diffusion abnormalities are identified to suggest an acute infarct. No evidence of hydrocephalus. No mass effect or midline shift is seen. Mild chronic white matter microangiopathic changes noted with moderate generalized parenchymal volume loss and ex vacuo dilatation of the ventricles. No extra-axial fluid collections are seen. The brainstem and cerebellum are normal. The gradient refocused acquisition demonstrates no pathologic magnetic susceptibility artifact to indicate underlying acute or chronic blood products. The craniovertebral junction, marrow signal, and midline structures are normal. The major intracranial flow voids at the level of the [place] are preserved. The dural venous sinus flow voids are maintained. The mastoid air cells are well aerated. There is T2 hypointense soft tissue partially filling the right sphenoid sinus with moderate circumferential mucosal thickening and sclerotic wall changes. The remaining paranasal sinuses are fairly well aerated. MR/MR head/brain wo con IMPRESSION: No acute process. Mild chronic white matter microangiopathy and moderate generalized parenchymal volume loss. Moderate chronic right sphenoid sinus disease. Focal calcification within the soft tissue in the right sphenoid sinus may signify an underlying mycetoma or may be due to chronic inflammatory mucosal disease.
--- NOTE | ~2020-09-25 | NM_ITS ---
EXAMINATION: RADIONUCLIDE PULMONARY PERFUSION STUDY CLINICAL INDICATION: DVT, shortness of breath, rule out pulmonary embolism. COMPARISON: No previous lung scan is available for comparison. A radiograph of the chest dated 09/25/2020 is available for comparison. PROCEDURE: Following the intravenous administration of 4.0 millicuries technetium 99m MAA, images of the chest were obtained in multiple projections using a gamma scintophoto camera. PERFUSION IMAGES: No segmental perfusion defects are present. Mild nonsegmental perfusion abnormalities are present bilaterally, most prominently in the left lung apex where moderately diminished activity is present. There are no focal or anatomic appearing perfusion defects. NM/NM pul perfusion IMPRESSION: Very low probability of pulmonary embolism.
--- NOTE | ~2020-09-25 | CT_ITS ---
EXAMINATION: CT ABDOMEN AND PELVIS WITHOUT CONTRAST CLINICAL INFORMATION: Fever of unknown origin. Cholelithiasis. COMPARISON: Ultrasound of the abdomen 08/28/2020 TECHNIQUE: Multidetector volumetric imaging was performed from the superior aspect of the liver through the pubic symphysis. Sagittal and coronal reformatted images were obtained on the technologist's workstation. This CT examination was performed using dose optimization techniques as appropriate, variously including the following: *Automated exposure control *Adjustment of mA and/or kV according to patient size (this includes techniques or standardized protocols for targeted exams where dose is matched to indication/reason for exam; i.e. extremities or head) *Use of iterative reconstruction technique DLP: 626.66+4.87+4.87 mGy-cm FINDINGS: LUNG BASES: The visualized lung bases are unremarkable. LIVER, GALLBLADDER, AND BILIARY TREE: There are multiple hepatic cysts. Unchanged since prior ultrasound study. There is no hepatic bile duct dilatation. The gallbladder is unremarkable with no evidence of radiopaque gallstones, gallbladder wall thickening, or obvious pericholecystic inflammatory changes. PANCREAS: Unremarkable. SPLEEN: Unremarkable. ADRENAL GLANDS: 1 cm nodule in the right adrenal gland. Density measurement -5 Hounsfield units consistent with adrenal adenoma. There is fullness of the left adrenal gland. There is a 2 cm General adenoma left adrenal gland. Density measurement -7 Hounsfield units. KIDNEYS AND URETERS: The kidneys are normal in size, shape, and attenuation. No hydronephrosis, hydroureter, or calculi seen. No perinephric stranding. BLADDER: Unremarkable. GASTROINTESTINAL TRACT: There are numerous diverticula of the sigmoid colon. There is no diverticulitis. There is no bowel wall thickening /edema. There is no bowel obstruction. There is a moderate volume of stool in the colon. There is a large focal collection of stool in the rectum sigmoid in the low pelvis. No evidence of stercoral colitis. The appendix is nonvisualized . The small bowel loops are unremarkable. The stomach is normal. There is no hiatal hernia. ABDOMINAL WALL: No significant hernia is appreciated. LYMPH NODES: Normal. VASCULAR: Unremarkable. PELVIC VISCERA: Uterus is absent. OSSEOUS STRUCTURES: Multilevel degenerative spondylosis spine. Compression deformity of T12. There is about 50% loss of height of the vertebrae. This appears to be chronic. No acute fracture line. There is vacuum changes of T12-L1 disc as well. CT/CT abdomen pelvis wo con IMPRESSION: There is no acute abnormality the abdomen or the pelvis.
--- NOTE | ~2020-09-25 | XR_ITS ---
EXAMINATION: XR CHEST CLINICAL INFORMATION: Sepsis COMPARISON: 08/28/2020 TECHNIQUE: Frontal view of the chest was obtained. FINDINGS: No significant abnormality is noted involving the heart, lungs, mediastinum, bony thorax or soft tissues. XR/XR chest 1V IMPRESSION: Unremarkable examination.
--- NOTE | ~2020-09-25 | CT_ITS ---
EXAMINATION: CT HEAD WITHOUT CONTRAST CLINICAL INFORMATION: Altered mental status COMPARISON: 08/28/2020 TECHNIQUE: Contiguous axial imaging was performed from the skull base to vertex without intravenous administration of contrast. This CT examination was performed using dose optimization techniques as appropriate, variously including the following: *Automated exposure control *Adjustment of mA and/or kV according to patient size (this includes techniques or standardized protocols for targeted exams where dose is matched to indication/reason for exam; i.e. extremities or head) *Use of iterative reconstruction technique DLP: 634 mGy-cm FINDINGS: There is no evidence of acute intracranial hemorrhage or territorial infarction. No abnormal mass effect or midline shift is seen. [place] to white matter differentiation is well preserved. No extra-axial fluid collections are identified. The ventricles are normal in size. There is no abnormal attenuation within the brain parenchyma. Mild volume loss is noted. The osseous structures and soft tissues are normal. Partially opacified right sphenoid sinus. The mastoid air cells are well-aerated. CT/CT head/brain wo con IMPRESSION: No acute intracranial pathology.
--- NOTE | ~2020-09-25 | CT_ITS ---
EXAMINATION: CT LEFT LOWER LEG CLINICAL INFORMATION: Osteomyelitis COMPARISON: None TECHNIQUE: Axial images obtained through the left lower leg from the knee through the ankle without IV contrast. Coronal and sagittal reformatted images are performed at CT scanner FINDINGS: There is no bone destruction. No abnormal periosteal reaction. There is no evidence for osteomyelitis. There is a small volume of edema and fluid in the subcutaneous tissue at the anterior leg from the mid leg through the ankle. There is no drainable fluid collection. There is no abscess. CT/CT lower leg LT wo con IMPRESSION: No evidence for osteomyelitis. Small amount of edema and fluid in the anterior leg subcutaneous tissue but no drainable fluid collection or abscess.
--- NOTE | ~2020-09-25 | US_ITS ---
EXAMINATION: US VENOUS ULTRASOUND WITH DOPPLER LOWER EXTREMITY, BILATERAL CLINICAL INFORMATION: Concern for DVT. COMPARISON: No priors. TECHNIQUE: Ultrasound of the deep veins is performed from the hip to the calf with compression sonography and color and pulse Doppler assessment. Spectral analysis with color-flow imaging is performed. FINDINGS: RIGHT: Nonocclusive DVT is noted in the common femoral vein. Greater saphenous vein is patent and compresses normally. Occlusive thrombus in the proximal, mid and distal femoral vein, profunda femoral vein, and popliteal vein are appreciated. Flow is noted in the posterior tibial vein. The peroneal vein is not visualized. LEFT: Occlusive thrombus is noted in the left common femoral vein and greater saphenous vein. Near occlusive thrombus is noted in the proximal femoral vein. Nonocclusive thrombus is noted in the mid and distal femoral veins. Occlusive thrombus in the profunda femoral vein. Left popliteal and peroneal veins are not well visualized. Flow is noted in the left posterior tibial vein. US/US venous duplex LE BI IMPRESSION: Bilateral DVT as described above.
[2020-09-25 15:54] VITALS: BP 152/87; PULSE 116; RESP 18; TEMP 36.8; O2SAT 97; BMI 33.3
--- NOTE | 2020-09-25 16:00 | ECG_ITS ---
Test Reason : DIAPHORESIS Blood Pressure : / mmHG Vent. Rate : 117 BPM Atrial Rate : 117 BPM P-R Int : 128 ms QRS Dur : 066 ms QT Int : 330 ms P-R-T Axes : 077 018 086 degrees QTc Int : 461 ms Sinus tachycardia Cannot rule out Anterior infarct (cited on or before 27-AUG-2020) Right atrial enlargement Abnormal ECG When compared with ECG of 27-AUG-2020 23:58, Borderline criteria for Inferior infarct are no longer Present Referred By: Patricia Chester Electronically Signed By:HARDEEP CONLEY
--- NOTE | 2020-09-25 16:10 | ED.GENADULT ---
HPI - General Adult General Chief complaint: General Medical Stated complaint: FAILURE TO THRIVE Time Seen by Provider: 09/25/20 15:52 Source: EMS Mode of arrival: EMS Limitations: altered mental status History of Present Illness HPI narrative: Patient comes to emergency room via EMS, patient is coming from [facility]. According to the staff, patient is not as active as she usually is, she is participating less in her daily activities, eating less. Patient was discharged on August 30 from this facility, patient was here for sepsis secondary to UTI, and radial/ulnar fracture. Patient states that nothing hurts, states that she does not know how she feels at this time. 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 Related Data Home Medications Medication Instructions Recorded Confirmed paroxetine HCl 30 mg tablet 30 mg PO DAILY 06/06/20 09/25/20 clonazepam 1 mg PO TID PRN 08/28/20 09/25/20 levothyroxine 25 mcg PO DAILY@0630 08/28/20 09/25/20 Allergies Allergy/AdvReac Type Severity Reaction Status Date / Time Iodinated Contrast Media Allergy Severe UNKNOWN Verified 09/20/20 13:14 [CONTRAST, IV] nitrofurantoin Allergy Unknown UNKNOWN Verified 09/20/20 13:14 [From MACRODANTIN] phenytoin [Dilantin] Allergy Unknown anaphylaxis Verified 09/20/20 13:14 Sulfa (Sulfonamide Allergy Unknown anaphylaxis Verified 09/20/20 13:14 Antibiotics) Review of Systems Review of Systems: Yes Unobtainable due to mental status PMFSH Past Medical History Medical History (Updated 09/25/20 @ 20:39 by Patricia Chester MD) Anxiety Arthritis Depression DVT (deep venous thrombosis) Epilepsy Hypothyroidism Surgical History No pertinent past surgical history Family History Family History Father Stomach cancer Mother Medical history unknown Social History Social History Household Members: None Housing: House Alcohol intake: unknown Smoking Status: Never smoker Smoked in Last 30 Days: No Use of substances other than those prescribed or required for medical reasons: No Advance Directives: No Advance Directives Information Provided: No Current occupational status: retired Physical Exam Vital Signs: Vital Signs: Last Vital Signs Temp 102.5 F H 09/25/20 20:36 Pulse 122 H 09/25/20 20:36 Resp 16 09/25/20 20:36 BP 151/92 H 09/25/20 20:36 Pulse Ox 98 09/25/20 20:36 Body Mass Index 33.3 Course Course Course Narrative: 20:14 straight cath has been ordered since 4pm , urine analysis is not available yet. At this time, patient does not have any URI symptoms, UA is pending, patient is empirically being treated with ceftriaxone for possible UTI. Once again, I urged the patient's nurse and tech to obtain the urine. 20:35I spoke to our hospitalist, patient is being admitted, Dr. Morataya aware that the urine is still pending. 20:40, i was informed that pt has a fever now. Pt already received IV fluids and ceftriaxone. COVID test pending Medical Decision Making Lab Data Result diagrams: 09/25/20 16:26 09/25/20 16:26 Labs: Lab Results 09/25/20 09/25/20 09/25/20 Range/Units 16:25 16:25 16:26 WBC 15.8 H (4.8-10.8) X10*3/uL RBC 6.20 H D (4.20-5.50) X10*6/uL Hgb 18.2 H D (12.0-16.0) g/dl Hct 54.3 H D (37-47) % MCV 87.6 (80-98) fL MCH 29.4 (27.0-33.0) pg MCHC 33.5 (31.0-35.0) g/dl RDW 12.9 (11.0-16.0) % Plt Count 297 D (160-400) X10*3/uL MPV 11.1 (9.4-12.3) fL Immature Gran % (Auto) 0.8 H (0.0-0.4) % Neut % (Auto) 88.2 H (45-73) % Lymph % (Auto) 2.5 L (20-40) % [place] % (Auto) 8.4 (2-11) % Eos % (Auto) 0.0 (0-4) % Baso % (Auto) 0.1 (0-2) % Lymph # (Auto) 0.4 L (1.2-4.9) X10*3/uL [place] # (Auto) 1.3 H (0.1-1.2) X10*3/uL Eos # (Auto) 0.0 (0.0-0.4) X10*3/uL Baso # (Auto) 0.0 (0.0-0.2) X10*3/uL Abs Immat Gran (auto) 0.13 H (0.00-0.03) X10*3/uL Absolute Neuts (auto) 13.9 H (2.0-8.3) X10*3/uL Absolute Nucleated RBC 0.000 (0.0-0.012) X10*3/uL Nucleated RBC % (auto) 0.0 (0.0-0.2) /100WBC Smear Tech's Comments VERIFIED PT 23.4 H D (10.8-13.0) SEC INR 2.0 H (0.9-1.1) Sodium (135-145) mmol/L Potassium (3.3-5.1) mmol/L Chloride (96-108) mmol/L Carbon Dioxide (22-29) mmol/L Anion Gap (12-20) BUN (9-16) mg/dL Creatinine (0.5-1.4) mg/dL Estim Creat Clear Calc Estimated GFR Random Glucose (60-115) mg/dL Lactic Acid (0.5-2.0) mmol/L Calcium (8.4-10.2) mg/dL Magnesium (1.6-2.6) mg/dL Total Bilirubin (0.0-1.0) mg/dL Direct Bilirubin (0.0-0.5) mg/dL AST (5-31) U/L ALT (0-31) U/L Alkaline Phosphatase (39-117) U/L Troponin I High Sens 33.0 H D (<3.5-17.0) ng/L B-Natriuretic Peptide 219 H (<100) pg/mL Total Protein (6.5-8.0) g/dL Albumin (3.5-5.0) g/dL TSH (0.32-4.0) uIU/mL 09/25/20 09/25/20 Range/Units 16:26 18:37 WBC (4.8-10.8) X10*3/uL RBC (4.20-5.50) X10*6/uL Hgb (12.0-16.0) g/dl Hct (37-47) % MCV (80-98) fL MCH (27.0-33.0) pg MCHC (31.0-35.0) g/dl RDW (11.0-16.0) % Plt Count (160-400) X10*3/uL MPV (9.4-12.3) fL Immature Gran % (Auto) (0.0-0.4) % Neut % (Auto) (45-73) % Lymph % (Auto) (20-40) % [place] % (Auto) (2-11) % Eos % (Auto) (0-4) % Baso % (Auto) (0-2) % Lymph # (Auto) (1.2-4.9) X10*3/uL [place] # (Auto) (0.1-1.2) X10*3/uL Eos # (Auto) (0.0-0.4) X10*3/uL Baso # (Auto) (0.0-0.2) X10*3/uL Abs Immat Gran (auto) (0.00-0.03) X10*3/uL Absolute Neuts (auto) (2.0-8.3) X10*3/uL Absolute Nucleated RBC (0.0-0.012) X10*3/uL Nucleated RBC % (auto) (0.0-0.2) /100WBC Smear Tech's Comments PT (10.8-13.0) SEC INR (0.9-1.1) Sodium 134 L (135-145) mmol/L Potassium 4.6 (3.3-5.1) mmol/L Chloride 98 (96-108) mmol/L Carbon Dioxide 23 (22-29) mmol/L Anion Gap 18 (12-20) BUN 59 H D (9-16) mg/dL Creatinine 1.16 (0.5-1.4) mg/dL Estim Creat Clear Calc 39.1 Estimated GFR 46 Random Glucose 164 H D (60-115) mg/dL Lactic Acid 2.6 H* (0.5-2.0) mmol/L Calcium 9.3 D (8.4-10.2) mg/dL Magnesium 2.8 H (1.6-2.6) mg/dL Total Bilirubin 1.7 H (0.0-1.0) mg/dL Direct Bilirubin 0.8 H (0.0-0.5) mg/dL AST 33 H D (5-31) U/L ALT 25 (0-31) U/L Alkaline Phosphatase 94 D (39-117) U/L Troponin I High Sens (<3.5-17.0) ng/L B-Natriuretic Peptide (<100) pg/mL Total Protein 6.4 L (6.5-8.0) g/dL Albumin 3.7 (3.5-5.0) g/dL TSH 0.66 (0.32-4.0) uIU/mL ECG Data Attestation: I personally reviewed and interpreted this ECG as follows: (Sinus tachycardia, heart rate 117, no ST segment depression elevate chin, prolonged QTc, atrial enlargement, no EKG changes from 08/27/2020) Discharge Plan Discharge Clinical Impression: Acute dehydration Patient Disposition: Admitted As Inpatient
[2020-09-25 16:38] LABS: Basophils Percent Auto 0.1 % (0-2); Hematocrit 54.3 % (37-47); Hemoglobin 18.2 g/dl (12.0-16.0); Imm Gran Abs Auto 0.13 X10*3/uL (0.00-0.03); Imm Gran Pct Auto 0.8 % (0.0-0.4); Lymphocytes Absolute Auto 0.4 X10*3/uL (1.2-4.9); Lymphocytes Percent Auto 2.5 % (20-40); MANUAL DIFF FLAG SCAN; Mean Corpuscular HGB Conc 33.5 g/dl (31.0-35.0); Mean Corpuscular Hemoglobin 29.4 pg (27.0-33.0); Mean Corpuscular Volume 87.6 fL (80-98); Mean Platelet Volume 11.1 fL (9.4-12.3); Monocytes Absolute Auto 1.3 X10*3/uL (0.1-1.2); Monocytes Percent Auto 8.4 % (2-11); Neutrophils Absolute Auto 13.9 X10*3/uL (2.0-8.3); Neutrophils Percent Auto 88.2 % (45-73); Platelet Count 297 X10*3/uL (160-400); Red Cell Distribution Width 12.9 % (11.0-16.0); SCAN SMEAR FLAG 1; White Blood Count 15.8 X10*3/uL (4.8-10.8)
[2020-09-25 16:58] LABS: SLIDE REVIEW VERIFIED
[2020-09-25 17:12] LABS: Alanine Aminotransferase 25 U/L (0-31); Albumin Level 3.7 g/dL (3.5-5.0); Alkaline Phosphatase 94 U/L (39-117); Anion Gap 18 (12-20); Aspartate Amino Transferase 33 U/L (5-31); Bilirubin Direct 0.8 mg/dL (0.0-0.5); Bilirubin Total 1.7 mg/dL (0.0-1.0); Blood Urea Nitrogen 59 mg/dL (9-16); Calcium 9.3 mg/dL (8.4-10.2); Carbon Dioxide 23 mmol/L (22-29); Chloride 98 mmol/L (96-108); Creatinine Clr Calc Pharmacy 39.1; Estimated Glomerular Filt Rate 46; Glucose Random 164 mg/dL (60-115); Magnesium 2.8 mg/dL (1.6-2.6); Potassium 4.6 mmol/L (3.3-5.1); Sodium 134 mmol/L (135-145); Total Protein 6.4 g/dL (6.5-8.0)
[2020-09-25 17:26] LABS: Prothrombin Time 23.4 SEC (10.8-13.0)
[2020-09-25 17:33] LABS: TSH reflex Free T4 0.66 uIU/mL (0.32-4.0)
[2020-09-25] MEDS: 0.9 % Sodium Chloride 1,000 ML 999 ML IVCONT ×3 (17:42→23:29)
[2020-09-25 18:00] VITALS: PULSE 115; RESP 20; O2SAT 95
[2020-09-25 18:38] LABS: B Type Natriuretic Peptide 219 pg/mL (<100)
[2020-09-25 19:00] LABS: Lactic Acid 2.6 mmol/L (0.5-2.0)
[2020-09-25] MEDS: cefTRIAXone sodium 2 GM in 0.9 % Sodium Chloride 50 ML IV (20:32)
[2020-09-25 20:36] VITALS: BP 151/92; PULSE 122; RESP 16; TEMP 39.2; O2SAT 98
[2020-09-25 20:41] LABS: Reflex Lactate? Lactic Acid Added
[2020-09-25 20:51] LABS: Glucose Urine UA NEG (NEG); Leukocyte Esterase Urine NEG (NEG); Nitrite Urine NEG (NEG); PH 5.5 (5.0-8.0); Specific Gravity - Urine 1.025 (1.005-1.025); Urine Blood NEG (NEG); Urine Ketones 5 MG/DL (NEG); Urine Protein NEG (NEG-TRACE)
[2020-09-25 20:52] LABS: Appearance Urine CLEAR; Color Urine YELLOW
[2020-09-25] MEDS: Acetaminophen 325 MG TABLET 650 MG PO (21:02)
[2020-09-25 21:15] LABS: COVID-19 Test Negative (Negative)
[2020-09-25 21:20] LABS: Troponin-I High Sensitivity 30.1 ng/L (<3.5-17.0)
[2020-09-25 22:17] LABS: ~Lactic Acid-LAB USE ONLY 2.1 mmol/L (0.5-2.0)
[2020-09-25 22:22] VITALS: BP 158/91; PULSE 117; RESP 18; TEMP 39; O2SAT 99
--- NOTE | 2020-09-25 22:29 | P.HPHOSP_ITS ---
History of Present Illness Date of Service: 09/25/20 Chief Complaint: Generalized weakness 75-year-old female with a past medical history of anxiety, arthritis, depression, epilepsy, hypothyroidism, recent admission to the hospital for failure to thrive/rhabdomyolysis/transaminitis/UTI/right wrist fracture S encep halopathy. Subsequently patient was discharged presented to the hospital with a chief complaint of generalized weakness. Mentions patient has reduced oral intake. Patient is a poor historian. Most of the history obtained from the records and the ER staff. Reportedly the patient has not been doing well at the long-term and not participating well with physical therapy, has poor oral intake. Duplex study showed DVT. Patient on Coumadin. Sent to the hospital for further evaluation. Patient denies any chest pain palpitations lightheadedness or dizziness. Denies any numbness tingling. Denies any fever chills cough. ER course: For ER team bedside echocardiogram showed IVC collapse-consistent with dehydration, given IV fluids. Noted to have lactic acidosis. Exam was nonfocal. Troponins were indeterminate, EKG nonischemic. Admitted to the hospital for further management. Noted to have DARREN-given IV fluids [facility] Medical History (Updated 09/28/20 @ 11:38 by Gregory Rainey MD) Anxiety Arthritis Depression DVT (deep venous thrombosis) Epilepsy Fever of unknown origin Hypothyroidism Family History Father Stomach cancer Mother Medical history unknown Surgical History No pertinent past surgical history Social History Household Members: Other Housing: [facility] Alcohol intake: unknown Smoking Status: Unknown if ever smoked Second Hand Smoke Exposure: No service: No Current occupational status: retired Meds Allergies Allergy/AdvReac Type Severity Reaction Status Date / Time Iodinated Contrast Media Allergy Severe UNKNOWN Verified 09/20/20 13:14 [CONTRAST, IV] nitrofurantoin Allergy Unknown UNKNOWN Verified 09/20/20 13:14 [From MACRODANTIN] phenytoin [Dilantin] Allergy Unknown anaphylaxis Verified 09/20/20 13:14 Sulfa (Sulfonamide Allergy Unknown anaphylaxis Verified 09/20/20 13:14 Antibiotics) Active Medications: Current Medications Generic Name Dose Route Start Last Admin Trade Name Ligia PRN Reason Stop Dose Admin Acetaminophen 650 mg 09/25/20 22:23 Acetaminophen 325 Mg Tablet PO Q6H PRN Pain, Mild (Pain Scale 1-3) Clonazepam 1 mg 09/25/20 22:27 Clonazepam 1 Mg Tablet PO TID PRN anxiety Heparin Sodium (Porcine) 5,000 unit 09/25/20 22:30 Heparin Sodium,Porcine 5,000 Unit/Ml Vial SUBCUT Q8H [facility] Ceftriaxone Sodium 1 gm/ 50 mls @ 100 mls/hr 09/25/20 22:30 Sodium Chloride IV Q24H [facility] Dextrose/Sodium Chloride 1,000 mls @ 100 mls/hr 09/25/20 22:30 D51/2ns IVCONT .Q10H [facility] Levothyroxine Sodium 25 mcg 09/26/20 06:30 Levothyroxine Sodium 25 Mcg Tablet PO DAILY@0630 [facility] Paroxetine HCl 30 mg 09/26/20 09:00 Paroxetine Hcl 30 Mg Tablet PO DAILY [facility] Pharmacy Consult 1 each 09/25/20 21:53 Consult Rx Perform Med Rec MISCELLANE ONCE PRN Consult order Senna 17.2 mg 09/25/20 22:23 Sennosides 8.6 Mg Tablet PO BEDTIME PRN Constipation Sodium Chloride 3 ml 09/26/20 00:00 0.9 % Sodium Chloride Flush 3 Ml Syringe IVFLUSH QSHIFT [facility] Zolpidem Tartrate 5 mg 09/25/20 22:23 Zolpidem Tartrate 5 Mg Tablet PO BEDTIME PRN Insomnia Home Medications Medication Instructions Recorded Confirmed Last Taken Type paroxetine HCl 30 mg tablet 30 mg PO DAILY 06/06/20 09/25/20 Unknown History clonazepam 1 mg PO TID PRN 08/28/20 09/25/20 Unknown History levothyroxine 25 mcg PO DAILY@0630 08/28/20 09/25/20 Unknown History Physical Exam Vital Signs and Narrative: Vital Signs: Last Vital Signs Temp 102.2 F H 09/25/20 22:22 Pulse 117 H 09/25/20 22:22 Resp 18 09/25/20 22:22 BP 158/91 H 09/25/20 22:22 Pulse Ox 99 09/25/20 22:22 Body Mass Index 33.3 Gen: Appears be in no acute distress HEENT: NCAT, Moist mucosa. Pulmonary: Vesicular breath sounds, fair air entry CVS: Normal S1-S2 Abdomen: BS+, Soft, Nontender Extremities: Warm well perfused; right upper extremity has splint in place for the wrist. Neuro: Alert and awake. Moves upper extremities equally. Bilateral lower extremities-moves them equally bilaterally at the ankles and wiggles toes. But limited exam at the knees and hips. Results Labs CBC and Chem 7: 09/29/20 06:11 09/29/20 06:11 Labs: Laboratory Results - last 24 hr 09/25/20 09/25/20 09/25/20 16:25 16:25 16:26 MCV 87.6 MCH 29.4 MCHC 33.5 RDW 12.9 Plt Count 297 D MPV 11.1 Immature Gran % (Auto) 0.8 H Neut % (Auto) 88.2 H Lymph % (Auto) 2.5 L [place] % (Auto) 8.4 Eos % (Auto) 0.0 Baso % (Auto) 0.1 Lymph # (Auto) 0.4 L [place] # (Auto) 1.3 H Eos # (Auto) 0.0 Baso # (Auto) 0.0 Abs Immat Gran (auto) 0.13 H Absolute Neuts (auto) 13.9 H Absolute Nucleated RBC 0.000 Nucleated RBC % (auto) 0.0 Smear Tech's Comments VERIFIED PT 23.4 H D INR 2.0 H Anion Gap Estim Creat Clear Calc Estimated GFR Random Glucose Lactic Acid Lactic Acid Fup @ 2Hr Calcium Magnesium Total Bilirubin Direct Bilirubin AST ALT Alkaline Phosphatase Troponin I High Sens 33.0 H D B-Natriuretic Peptide 219 H Total Protein Albumin TSH Urine Color Urine Appearance Urine pH Ur Specific [place] Urine Protein Urine Glucose (UA) Urine Ketones Urine Blood Urine Nitrite Ur Leukocyte Esterase COVID-19 (JERZY) COVID-19 Clin Com 09/25/20 09/25/20 09/25/20 16:26 18:37 20:45 MCV MCH MCHC RDW Plt Count MPV Immature Gran % (Auto) Neut % (Auto) Lymph % (Auto) [place] % (Auto) Eos % (Auto) Baso % (Auto) Lymph # (Auto) [place] # (Auto) Eos # (Auto) Baso # (Auto) Abs Immat Gran (auto) Absolute Neuts (auto) Absolute Nucleated RBC Nucleated RBC % (auto) Smear Tech's Comments PT INR Anion Gap 18 Estim Creat Clear Calc 39.1 Estimated GFR 46 Random Glucose 164 H D Lactic Acid 2.6 H* Lactic Acid Fup @ 2Hr Calcium 9.3 D Magnesium 2.8 H Total Bilirubin 1.7 H Direct Bilirubin 0.8 H AST 33 H D ALT 25 Alkaline Phosphatase 94 D Troponin I High Sens B-Natriuretic Peptide Total Protein 6.4 L Albumin 3.7 TSH 0.66 Urine Color Urine Appearance Urine pH Ur Specific [place] Urine Protein Urine Glucose (UA) Urine Ketones Urine Blood Urine Nitrite Ur Leukocyte Esterase COVID-19 (JERZY) Negative COVID-19 Clin Com See Note 09/25/20 09/25/20 09/25/20 20:45 20:45 21:48 MCV MCH MCHC RDW Plt Count MPV Immature Gran % (Auto) Neut % (Auto) Lymph % (Auto) [place] % (Auto) Eos % (Auto) Baso % (Auto) Lymph # (Auto) [place] # (Auto) Eos # (Auto) Baso # (Auto) Abs Immat Gran (auto) Absolute Neuts (auto) Absolute Nucleated RBC Nucleated RBC % (auto) Smear Tech's Comments PT INR Anion Gap Estim Creat Clear Calc Estimated GFR Random Glucose Lactic Acid Lactic Acid Fup @ 2Hr 2.1 H* Calcium Magnesium Total Bilirubin Direct Bilirubin AST ALT Alkaline Phosphatase Troponin I High Sens 30.1 H B-Natriuretic Peptide Total Protein Albumin TSH Urine Color YELLOW Urine Appearance CLEAR Urine pH 5.5 Ur Specific [place] 1.025 Urine Protein NEG Urine Glucose (UA) NEG Urine Ketones 5 Urine Blood NEG Urine Nitrite NEG Ur Leukocyte Esterase NEG COVID-19 (JERZY) COVID-19 Clin Com Imaging Radiologist's Impressions: Impressions Chest X-Ray 09/25/20 20:18 IMPRESSION: Unremarkable examination. Assessment and Plan (1) DARREN (acute kidney injury): Status: Acute 75-year-old female with a past medical history of anxiety, hypothyroidism, recent admission to the hospital for a due to thrive/UTI/rhabdomyolysis/wrist fracture. Presented to the hospital today with a chief complaint of generalized weakness and poor oral intake. Fever: Unclear source. Started broad-spectrum antibiotics empirically. Id consult. Follow up cultures Generalized weakness: Likely in setting of dehydration. Supportive care. Urinalysis negative. Chest x-ray negative. COVID-19 negative. Failure to thrive: Supportive care. Nutrition consult. DARREN: Patient's prior creatinine was 0.56. Today it is 1.16. Likely prerenal. IV fluids. Avoid nephrotoxins. Lactic acidosis: IV fluids Bilateral DVT: Continue Coumadin. INR therapeutic. As per the ER physician, the bedside echo did not show any evidence of right heart strain. Could not obtain CT chest given contrast allergy. V/Q scan ordered. Vascular consult. History of hypothyroidism: TSH within normal limits on last admission. Continue home medication levothyroxine. Prolonged QTC: Will monitor on telemetry. Will check the electrolytes. Cardiology consult. Echocardiogram. Indeterminate troponins: EKG nonischemic. Patient denies any chest pain. Cardiology consult as mentioned. DVT prophylaxis: Patient on Coumadin Code status: DNR/DNI; most form in the chart I tried to reach both the sounds of the patient but unable to reach, left john masses.
[2020-09-25 23:51] LABS: Reflex Lactate? 2 Y
[2020-09-26] VITALS (8 sets, daily range): BP systolic 111–141; BP diastolic 62–75; PULSE 75–98; RESP 16–19; TEMP 35.8–38.2; O2SAT 95–100; BMI 33.3
--- NOTE | 2020-09-26 | ECG_ITS ---
Test Reason : ELEV TROPS Blood Pressure : / mmHG Vent. Rate : 091 BPM Atrial Rate : 041 BPM P-R Int : 000 ms QRS Dur : 074 ms QT Int : 362 ms P-R-T Axes : 000 019 066 degrees QTc Int : 445 ms Accelerated Junctional rhythm Possible Anterior infarct (cited on or before 27-AUG-2020) Abnormal ECG When compared with ECG of 25-SEP-2020 16:13, Junctional rhythm has replaced Sinus rhythm Nonspecific T wave abnormality no longer evident in Anterolateral leads Referred By: Hardeep Conley Electronically Signed By:HARDEEP CONLEY
[2020-09-26] MEDS: vancomycin HCL 500 MG in 0.9 % Sodium Chloride 100 ML 110 MG IV (00:26)
[2020-09-26] MEDS: Heparin Sodium,Porcine 5,000 UNIT/ML VIAL 5000 UNIT SUBCUT ×4 (00:27→21:58)
[2020-09-26] MEDS: Piperacillin Sodium/Tazobactam 2.25 GM in 0.9 % Sodium Chloride 50 ML IV ×4 (01:23→18:41)
[2020-09-26] MEDS: 0.9 % Sodium Chloride Flush 3 ML SYRINGE IVFLUSH ×2 (01:26→08:40)
[2020-09-26] MEDS: Dextrose 5 % and 0.45 % NaCl 1,000 ML 100 ML IVCONT ×2 (02:00→13:57)
[2020-09-26 05:17] LABS: ~Lactic Acid-LAB USE ONLY 1.7 mmol/L (0.5-2.0)
[2020-09-26] MEDS: Levothyroxine Sodium 25 MCG TABLET PO (06:04)
[2020-09-26 06:12] LABS: Basophils Percent Auto 0.1 % (0-2); Hematocrit 47.1 % (37-47); Hemoglobin 15.7 g/dl (12.0-16.0); Imm Gran Abs Auto 0.09 X10*3/uL (0.00-0.03); Imm Gran Pct Auto 0.8 % (0.0-0.4); Lymphocytes Absolute Auto 0.6 X10*3/uL (1.2-4.9); Lymphocytes Percent Auto 5.2 % (20-40); MANUAL DIFF FLAG SCAN; Mean Corpuscular HGB Conc 33.3 g/dl (31.0-35.0); Mean Corpuscular Hemoglobin 28.8 pg (27.0-33.0); Mean Corpuscular Volume 86.3 fL (80-98); Mean Platelet Volume 11.5 fL (9.4-12.3); Monocytes Absolute Auto 1.1 X10*3/uL (0.1-1.2); Monocytes Percent Auto 9.3 % (2-11); Neutrophils Absolute Auto 9.7 X10*3/uL (2.0-8.3); Neutrophils Percent Auto 84.6 % (45-73); Platelet Count 244 X10*3/uL (160-400); Red Blood Count 5.46 X10*6/uL (4.20-5.50); Red Cell Distribution Width 12.9 % (11.0-16.0); SCAN SMEAR FLAG 1; White Blood Count 11.5 X10*3/uL (4.8-10.8)
[2020-09-26 06:16] LABS: INTERNATIONAL NORM RATIO 2.1 (0.9-1.1); Prothrombin Time 25.2 SEC (10.8-13.0)
[2020-09-26 06:36] LABS: Anion Gap 15 (12-20); Blood Urea Nitrogen 49 mg/dL (9-16); Calcium 8.1 mg/dL (8.4-10.2); Carbon Dioxide 19 mmol/L (22-29); Chloride 106 mmol/L (96-108); Estimated Glomerular Filt Rate > 60; Glucose Random 178 mg/dL (60-115); Potassium 3.5 mmol/L (3.3-5.1); Sodium 136 mmol/L (135-145)
[2020-09-26 06:58] LABS: SLIDE REVIEW VERIFIED
[2020-09-26 07:00] LABS: Thyroid Stimulating Hormone 0.32 uIU/mL (0.32-4.0)
[2020-09-26] MEDS: PARoxetine HCL 30 MG TABLET PO (08:43)
--- NOTE | 2020-09-26 09:37 | PC.NURSE ---
pt alert to person only. frequently stating she is thirsty, water pitcher at bedside and pt assisted with drinking. lungs clear bilat. vss. denies any pain/discomfort. D5 1/2 NS runnnig at 100 ml/hr. ni removed per md. dtv ~ 1500. pt repo q 2 hours to maintain skin integrity.
--- NOTE | 2020-09-26 10:32 | MHC.CM.PN ---
pt was at [facility] for STR , this is where she was admitted from this visit. dc plan is to return there when medically stable pending a PT eval. ref. made to [facility]. cm to cont. to follow
--- NOTE | 2020-09-26 11:04 | P.CONCA_ITS ---
History of Present Illness History of Present Illness Date of Service: 09/26/20 Consult reason: other (Abnormal EKG) Chief complaint: UTI Narrative: This is a cardiology consultation regarding abnormal EKG. Patient herself does not give any history whatsoever. She was apparently admitted for generalized weakness. She was not doing well at the skilled nursing and she has been referred back. In this context, she had an EKG performed and that apparently showed prolonged QT and hence we have been asked to see her. Patient herself is not able to give any information in fact she does not even know that she is in the hospital. Hence no further history is obtainable. Review of Systems Review of Systems: Yes Unobtainable due to mental status PMFSH Past Medical History Medical History (Updated 09/26/20 @ 11:18 by Derek Adame MD) Anxiety Arthritis Depression DVT (deep venous thrombosis) Epilepsy Hypothyroidism Family History Family History Father Stomach cancer Mother Medical history unknown Surgical History Surgical History No pertinent past surgical history Social History Social History Household Members: Other Housing: Detention Do you presently have visiting nurse or other home services: No Alcohol intake: unknown Smoking Status: Unknown if ever smoked Smoked in Last 30 Days: No Patient Interested in Nicotine Replacement: No Patient Given Instructions on How to Stop Smoking: No Second Hand Smoke Exposure: No Use of substances other than those prescribed or required for medical reasons: Unknown Currently Displaying Signs/Symptoms of Drug Intoxication Withdrawal: No Any prior treatment program specific to substance use: No Have you been hit, kicked, punched, or otherwise hurt by someone within the past year? If so, by whom?: No Do you feel safe in your current relationship?: No Current Relationship Is there a partner from a previous relationship who is making you feel unsafe now?: No Are you made to feel afraid or neglected: No Advance Directives: No Advance Directives Information Provided: No Do you have thoughts of harming others: None Do you have a plan to hurt others: No Plan Recently lost weight without trying: Unsure service: No Current occupational status: retired Meds Allergies Allergy/AdvReac Type Severity Reaction Status Date / Time Iodinated Contrast Media Allergy Severe UNKNOWN Verified 09/20/20 13:14 [CONTRAST, IV] nitrofurantoin Allergy Unknown UNKNOWN Verified 09/20/20 13:14 [From MACRODANTIN] phenytoin [Dilantin] Allergy Unknown anaphylaxis Verified 09/20/20 13:14 Sulfa (Sulfonamide Allergy Unknown anaphylaxis Verified 09/20/20 13:14 Antibiotics) Active Medications: Current Medications Generic Name Dose Route Start Last Admin Trade Name Freq PRN Reason Stop Dose Admin Acetaminophen 650 mg 09/25/20 22:23 Acetaminophen 325 Mg Tablet PO Q6H PRN Pain, Mild (Pain Scale 1-3) Clonazepam 1 mg 09/25/20 22:27 Clonazepam 1 Mg Tablet PO TID PRN anxiety Heparin Sodium (Porcine) 5,000 unit 09/25/20 22:30 09/26/20 06:03 Heparin Sodium,Porcine 5,000 Unit/Ml Vial SUBCUT 5,000 unit Q8H N[facility] Administration Ceftriaxone Sodium 1 gm/ 50 mls @ 100 mls/hr 09/26/20 20:00 Sodium Chloride IV Q24H NICANOR Dextrose/Sodium Chloride 1,000 mls @ 100 mls/hr 09/25/20 22:30 09/26/20 07:08 D51/2ns IVCONT 100 mls/hr .Q10H N[facility]OR Infusion Piperacillin Sod/Tazobactam 50 mls @ 100 mls/hr 09/26/20 00:00 09/26/20 07:08 Sod 2.25 gm/ Sodium Chloride IV Infused Q6H N[facility] Infusion Vancomycin HCl 500 mg/ Sodium 110 mls @ 110 mls/hr 09/25/20 23:00 09/26/20 01:31 Chloride IV Infused Q12H N[facility] Infusion Levothyroxine Sodium 25 mcg 09/26/20 06:30 09/26/20 06:04 Levothyroxine Sodium 25 Mcg Tablet PO 25 mcg DAILY@0630 NICANOR Administration Paroxetine HCl 30 mg 09/26/20 09:00 09/26/20 08:43 Paroxetine Hcl 30 Mg Tablet PO 30 mg DAILY NICANOR Administration Pharmacy Consult 1 each 09/25/20 21:53 Consult Rx Perform Med Rec MISCELLANE ONCE PRN Consult order Pharmacy Consult 1 each 09/25/20 22:42 Consult Rx Vancomycin Dosing MISCELLANE DAILY PRN Consult order Senna 17.2 mg 09/25/20 22:23 Sennosides 8.6 Mg Tablet PO BEDTIME PRN Constipation Sodium Chloride 3 ml 09/26/20 00:00 09/26/20 08:40 0.9 % Sodium Chloride Flush 3 Ml Syringe IVFLUSH 3 ml QSHIFT [facility] Administration Warfarin Sodium 3 mg 09/26/20 18:00 Warfarin Sodium 3 Mg Tablet PO DAILY@1800 NICANOR Zolpidem Tartrate 5 mg 09/25/20 22:23 Zolpidem Tartrate 5 Mg Tablet PO BEDTIME PRN Insomnia Home Medications Medication Instructions Recorded Confirmed Last Taken Type paroxetine HCl 30 mg tablet 30 mg PO DAILY 06/06/20 09/25/20 Unknown History clonazepam 1 mg PO TID PRN 08/28/20 09/25/20 Unknown History levothyroxine 25 mcg PO DAILY@0630 08/28/20 09/25/20 Unknown History Physical Exam Vital Signs: Vital Signs: Last Vital Signs Temp 97.0 F 09/26/20 07:17 Pulse 91 09/26/20 07:17 Resp 19 09/26/20 07:17 BP 122/67 09/26/20 07:17 Pulse Ox 97 09/26/20 07:17 Body Mass Index 33.3 Const: General: cooperative, comfortable and no acute distress Orientation/consciousness: patient oriented x3 HENMT: Other: Unremarkable Neck: Neck: Yes normal visual inspection Chest: Chest palpation & inspection: normal inspection of the chest Resp: Auscultation: clear to auscultation bilaterally, no crackles and no wheezes Cardio: Jugular venous distension: no JVD Palpation: normal PMI Heart sounds: S1 normal heart sound present, S2 normal heart sound present, no gallops, no murmurs and no rubs GI: Palpation (GI): Soft to palpation Back/Spine/Pelvis: Other: unremarkable Skin: General skin exam: no rashes or lesions noted Neuro: General: patient oriented x3 Extrem: General: Yes no clubbing, cyanosis or edema Psych: Mental Status: mental status grossly normal Results Labs and Meds Result diagrams: 09/26/20 05:24 09/26/20 05:24 Lab results: Laboratory Results - last 24 hr 09/25/20 09/25/20 09/25/20 16:25 16:25 16:26 WBC 15.8 H RBC 6.20 H D Hgb 18.2 H D Hct 54.3 H D MCV 87.6 MCH 29.4 MCHC 33.5 RDW 12.9 Plt Count 297 D MPV 11.1 Immature Gran % (Auto) 0.8 H Neut % (Auto) 88.2 H Lymph % (Auto) 2.5 L [place] % (Auto) 8.4 Eos % (Auto) 0.0 Baso % (Auto) 0.1 Lymph # (Auto) 0.4 L [place] # (Auto) 1.3 H Eos # (Auto) 0.0 Baso # (Auto) 0.0 Abs Immat Gran (auto) 0.13 H Absolute Neuts (auto) 13.9 H Absolute Nucleated RBC 0.000 Nucleated RBC % (auto) 0.0 Smear Tech's Comments VERIFIED PT 23.4 H D INR 2.0 H Sodium Potassium Chloride Carbon Dioxide Anion Gap BUN Creatinine Estim Creat Clear Calc Estimated GFR Random Glucose Lactic Acid Lactic Acid Fup @ 2Hr Lactic Acid Fup @ 4Hr Calcium Magnesium Total Bilirubin Direct Bilirubin AST ALT Alkaline Phosphatase Troponin I High Sens 33.0 H D B-Natriuretic Peptide 219 H Total Protein Albumin TSH Urine Color Urine Appearance Urine pH Ur Specific [place] Urine Protein Urine Glucose (UA) Urine Ketones Urine Blood Urine Nitrite Ur Leukocyte Esterase COVID-19 ([facility]) COVID-19 Clin Com 09/25/20 09/25/20 09/25/20 16:26 18:37 20:45 WBC RBC Hgb Hct MCV MCH MCHC RDW Plt Count MPV Immature Gran % (Auto) Neut % (Auto) Lymph % (Auto) [place] % (Auto) Eos % (Auto) Baso % (Auto) Lymph # (Auto) [place] # (Auto) Eos # (Auto) Baso # (Auto) Abs Immat Gran (auto) Absolute Neuts (auto) Absolute Nucleated RBC Nucleated RBC % (auto) Smear Tech's Comments PT INR Sodium 134 L Potassium 4.6 Chloride 98 Carbon Dioxide 23 Anion Gap 18 BUN 59 H D Creatinine 1.16 Estim Creat Clear Calc 39.1 Estimated GFR 46 Random Glucose 164 H D Lactic Acid 2.6 H* Lactic Acid Fup @ 2Hr Lactic Acid Fup @ 4Hr Calcium 9.3 D Magnesium 2.8 H Total Bilirubin 1.7 H Direct Bilirubin 0.8 H AST 33 H D ALT 25 Alkaline Phosphatase 94 D Troponin I High Sens B-Natriuretic Peptide Total Protein 6.4 L Albumin 3.7 TSH 0.66 Urine Color Urine Appearance Urine pH Ur Specific [place] Urine Protein Urine Glucose (UA) Urine Ketones Urine Blood Urine Nitrite Ur Leukocyte Esterase COVID-19 ([facility]ER[facility]) Negative COVID-19 Clin Com See Note 09/25/20 09/25/20 09/25/20 20:45 20:45 21:48 WBC RBC Hgb Hct MCV MCH MCHC RDW Plt Count MPV Immature Gran % (Auto) Neut % (Auto) Lymph % (Auto) [place] % (Auto) Eos % (Auto) Baso % (Auto) Lymph # (Auto) [place] # (Auto) Eos # (Auto) Baso # (Auto) Abs Immat Gran (auto) Absolute Neuts (auto) Absolute Nucleated RBC Nucleated RBC % (auto) Smear Tech's Comments PT INR Sodium Potassium Chloride Carbon Dioxide Anion Gap BUN Creatinine Estim Creat Clear Calc Estimated GFR Random Glucose Lactic Acid Lactic Acid Fup @ 2Hr 2.1 H* Lactic Acid Fup @ 4Hr Calcium Magnesium Total Bilirubin Direct Bilirubin AST ALT Alkaline Phosphatase Troponin I High Sens 30.1 H B-Natriuretic Peptide Total Protein Albumin TSH Urine Color YELLOW Urine Appearance CLEAR Urine pH 5.5 Ur Specific [place] 1.025 Urine Protein NEG Urine Glucose (UA) NEG Urine Ketones 5 Urine Blood NEG Urine Nitrite NEG Ur Leukocyte Esterase NEG COVID-19 ([facility]) COVID-19 Clin Com 09/26/20 09/26/20 09/26/20 01:47 05:24 05:24 WBC 11.5 H RBC 5.46 Hgb 15.7 Hct 47.1 H MCV 86.3 MCH 28.8 MCHC 33.3 RDW 12.9 Plt Count 244 MPV 11.5 Immature Gran % (Auto) 0.8 H Neut % (Auto) 84.6 H Lymph % (Auto) 5.2 L [place] % (Auto) 9.3 Eos % (Auto) 0.0 Baso % (Auto) 0.1 Lymph # (Auto) 0.6 L [place] # (Auto) 1.1 Eos # (Auto) 0.0 Baso # (Auto) 0.0 Abs Immat Gran (auto) 0.09 H Absolute Neuts (auto) 9.7 H Absolute Nucleated RBC 0.000 Nucleated RBC % (auto) 0.0 Smear Tech's Comments VERIFIED PT INR Sodium Potassium Chloride Carbon Dioxide Anion Gap BUN Creatinine Estim Creat Clear Calc Estimated GFR Random Glucose Lactic Acid Lactic Acid Fup @ 2Hr Lactic Acid Fup @ 4Hr 1.7 Calcium Magnesium Total Bilirubin Direct Bilirubin AST ALT Alkaline Phosphatase Troponin I High Sens B-Natriuretic Peptide Total Protein Albumin TSH 0.32 Urine Color Urine Appearance Urine pH Ur Specific [place] Urine Protein Urine Glucose (UA) Urine Ketones Urine Blood Urine Nitrite Ur Leukocyte Esterase COVID-19 ([facility]ER[facility]) COVID-19 [employer] 09/26/20 09/26/20 05:24 05:24 WBC RBC Hgb Hct MCV MCH MCHC RDW Plt Count MPV Immature Gran % (Auto) Neut % (Auto) Lymph % (Auto) [place] % (Auto) Eos % (Auto) Baso % (Auto) Lymph # (Auto) [place] # (Auto) Eos # (Auto) Baso # (Auto) Abs Immat Gran (auto) Absolute Neuts (auto) Absolute Nucleated RBC Nucleated RBC % (auto) Smear Tech's Comments PT 25.2 H INR 2.1 H Sodium 136 Potassium 3.5 D Chloride 106 Carbon Dioxide 19 L Anion Gap 15 BUN 49 H Creatinine 0.81 Estim Creat Clear Calc 56.0 Estimated GFR > 60 Random Glucose 178 H Lactic Acid Lactic Acid Fup @ 2Hr Lactic Acid Fup @ 4Hr Calcium 8.1 L D Magnesium Total Bilirubin Direct Bilirubin AST ALT Alkaline Phosphatase Troponin I High Sens B-Natriuretic Peptide Total Protein Albumin TSH Urine Color Urine Appearance Urine pH Ur Specific [place] Urine Protein Urine Glucose (UA) Urine Ketones Urine Blood Urine Nitrite Ur Leukocyte Esterase COVID-19 ([facility]ER[facility]) COVID-19 Clin Com ECG Attestation: I personally reviewed and interpreted this ECG as follows: Interpretation: EKG with sinus rhythm at 117/Min; QTc is difficult to measure but based on manual check, seems to be less than 500 milliseconds. In the sub sequent EKG, accelerated junctional rhythm at 91/Min. Imaging Radiologist's impression: Impressions Chest X-Ray 09/25/20 20:18 IMPRESSION: Unremarkable examination. Head CT 09/25/20 23:26 IMPRESSION: No acute intracranial pathology. Pulmonary Perfusion Imaging 09/26/20 23:25 IMPRESSION: Very low probability of pulmonary embolism. Assessment and Plan (1) Accelerated idioventricular rhythm: Status: Acute (2) Prolonged QT interval: Status: Acute As mentioned above, difficult to measure QT interval. She does have evidence of accelerated junctional rhythm intermittently. High sensitivity troponins are slightly elevated. We will get an echocardiogram for cardiac function assessment. Will follow with you. Procedures Date of Service Date of Service: 09/26/20
--- NOTE | 2020-09-26 13:47 | P.CNID_ITS ---
History of Present Illness Data of Consult Service Date: 09/26/20 Requesting physician: Kam Wilde Primary Care Provider: Unknown Physician HPI Reason for consult: fever of unknown origin [facility] and fever over last day COVID test is negative She has no nausea or vomiting There was concern with slightly elevated LFTs last month and patient had cholelithiasis with no cholecystitis. Review of Systems Review of Systems: Yes all other systems are reviewed and are negative [facility] Past Medical History Medical History (Updated 09/26/20 @ 13:52 by Alana Wagner MD) Anxiety Arthritis Depression DVT (deep venous thrombosis) Epilepsy Fever of unknown origin Hypothyroidism Family History Family History Father Stomach cancer Mother Medical history unknown Family history: reviewed and not pertinent Surgical History Surgical History No pertinent past surgical history Social History Social History Household Members: Other Housing: Long-Term Do you presently have visiting nurse or other home services: No Alcohol intake: unknown Smoking Status: Unknown if ever smoked Smoked in Last 30 Days: No Patient Interested in Nicotine Replacement: No Patient Given Instructions on How to Stop Smoking: No Second Hand Smoke Exposure: No Use of substances other than those prescribed or required for medical reasons: Unknown Currently Displaying Signs/Symptoms of Drug Intoxication Withdrawal: No Any prior treatment program specific to substance use: No Have you been hit, kicked, punched, or otherwise hurt by someone within the past year? If so, by whom?: No Do you feel safe in your current relationship?: No Current Relationship Is there a partner from a previous relationship who is making you feel unsafe now?: No Are you made to feel afraid or neglected: No Advance Directives: No Advance Directives Information Provided: No Do you have thoughts of harming others: None Do you have a plan to hurt others: No Plan Recently lost weight without trying: Unsure service: No Current occupational status: retired Meds Allergies Allergy/AdvReac Type Severity Reaction Status Date / Time Iodinated Contrast Media Allergy Severe UNKNOWN Verified 09/20/20 13:14 [CONTRAST, IV] nitrofurantoin Allergy Unknown UNKNOWN Verified 09/20/20 13:14 [From MACRODANTIN] phenytoin [Dilantin] Allergy Unknown anaphylaxis Verified 09/20/20 13:14 Sulfa (Sulfonamide Allergy Unknown anaphylaxis Verified 09/20/20 13:14 Antibiotics) Active Medications: Current Medications Generic Name Dose Route Start Last Admin Trade Name Freq PRN Reason Stop Dose Admin Acetaminophen 650 mg 09/25/20 22:23 Acetaminophen 325 Mg Tablet PO Q6H PRN Pain, Mild (Pain Scale 1-3) Clonazepam 1 mg 09/25/20 22:27 Clonazepam 1 Mg Tablet PO TID PRN anxiety Heparin Sodium (Porcine) 5,000 unit 09/25/20 22:30 09/26/20 06:03 Heparin Sodium,Porcine 5,000 Unit/Ml Vial SUBCUT 5,000 unit Q8H NICANOR Administration Dextrose/Sodium Chloride 1,000 mls @ 100 mls/hr 09/25/20 22:30 09/26/20 07:08 D51/2ns IVCONT 100 mls/hr .Q10H NICANOR Infusion Piperacillin Sod/Tazobactam 50 mls @ 100 mls/hr 09/26/20 00:00 09/26/20 13:00 Sod 2.25 gm/ Sodium Chloride IV Infused Q6H NCIANOR Infusion Levothyroxine Sodium 25 mcg 09/26/20 06:30 09/26/20 06:04 Levothyroxine Sodium 25 Mcg Tablet PO 25 mcg DAILY@0630 NICANOR Administration Paroxetine HCl 30 mg 09/26/20 09:00 09/26/20 08:43 Paroxetine Hcl 30 Mg Tablet PO 30 mg DAILY NICANOR Administration Pharmacy Consult 1 each 09/25/20 21:53 Consult Rx Perform Med Rec MISCELLANE ONCE PRN Consult order Pharmacy Consult 1 each 09/25/20 22:42 Consult Rx Vancomycin Dosing MISCELLANE DAILY PRN Consult order Senna 17.2 mg 09/25/20 22:23 Sennosides 8.6 Mg Tablet PO BEDTIME PRN Constipation Sodium Chloride 3 ml 09/26/20 00:00 09/26/20 08:40 0.9 % Sodium Chloride Flush 3 Ml Syringe IVFLUSH 3 ml QSHIFT NICANOR Administration Warfarin Sodium 3 mg 09/26/20 18:00 Warfarin Sodium 3 Mg Tablet PO DAILY@1800 NICANOR Zolpidem Tartrate 5 mg 09/25/20 22:23 Zolpidem Tartrate 5 Mg Tablet PO BEDTIME PRN Insomnia Home Medications Medication Instructions Recorded Confirmed Last Taken Type paroxetine HCl 30 mg tablet 30 mg PO DAILY 06/06/20 09/25/20 Unknown History clonazepam 1 mg PO TID PRN 08/28/20 09/25/20 Unknown History levothyroxine 25 mcg PO DAILY@0630 08/28/20 09/25/20 Unknown History Physical Exam Vital Signs: Vital Signs: Last Vital Signs Temp 97.7 F 09/26/20 11:57 Pulse 98 09/26/20 11:57 Resp 17 09/26/20 11:57 BP 131/73 09/26/20 11:57 Pulse Ox 95 09/26/20 11:57 Body Mass Index 33.3 Const: General: cooperative HENMT: Head: Yes normal to inspection Mouth: Normal oral and palatal mucosa present Eyes: General: appearance normal, both eyes and all related structures Resp: Effort & Inspection: normal respiratory effort Cardio: Rate: regular rate Rhythm: regular rhythm GI: Palpation (GI): Soft to palpation and nontender : General: Yes no CVA tenderness Back/Spine/Pelvis: Back: no CVA tenderness Skin: General skin exam: no rashes or lesions noted Extrem: Other: lateral chronic wound 3x5 lateral leg and 1 cm foot lateral General: Yes normal to inspection Results Labs CBC & Chem 7: 09/26/20 05:24 09/26/20 05:24 Labs: Short CBC 09/25/20 09/26/20 Range/Units 16:26 05:24 WBC 15.8 H 11.5 H (4.8-10.8) X10*3/uL Hgb 18.2 H D 15.7 (12.0-16.0) g/dl Hct 54.3 H D 47.1 H (37-47) % Plt Count 297 D 244 (160-400) X10*3/uL BMP 09/25/20 09/26/20 16:26 05:24 Sodium 134 L 136 Potassium 4.6 3.5 D Chloride 98 106 Carbon Dioxide 23 19 L BUN 59 H D 49 H Creatinine 1.16 0.81 Calcium 9.3 D 8.1 L D Liver Function 09/25/20 Range/Units 16:26 Total Bilirubin 1.7 H (0.0-1.0) mg/dL Direct Bilirubin 0.8 H (0.0-0.5) mg/dL AST 33 H D (5-31) U/L ALT 25 (0-31) U/L Alkaline Phosphatase 94 D (39-117) U/L Albumin 3.7 (3.5-5.0) g/dL Urine 09/25/20 Range/Units 20:45 Urine Color YELLOW Urine Appearance CLEAR Urine pH 5.5 (5.0-8.0) Ur Specific [place] 1.025 (1.005-1.025) Urine Protein NEG (NEG-TRACE) MG/DL Urine Glucose (UA) NEG (NEG) MG/DL Assessment and Plan (1) Fever of unknown origin: Problem details: She has reported lethargy at home and fever to 102 here She has concern over cholecystitis although she has normal LFTs now She has bilateral DVTs by report also a possible source There is concern over osteomyelitis left lateral lower leg ulcers also Status: Acute Would check CT leg look for osteomyelitis as cause Check abdominal and pelvic CT check for mass or obstruction gallbladder or kidney Would taper antibiotics to Zosyn to cover above
--- NOTE | 2020-09-26 15:02 | MHC.CLN ---
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
--- NOTE | 2020-09-26 17:00 | PM.CNGS ---
History of Present Illness Consult details Consult date: 09/26/20 Reason for consult: other (DVT) Narrative: 75-year-old female with a past medical history of anxiety, arthritis, depression, epilepsy, hypothyroidism. Reportedly the patient Had failure to thrive and had fevers of unknown origin. There is a supposed in report of duplex study showed DVT. Patient on Coumadin. she now presents for vascular evaluation. Of note patient has undergone V/Q scan to rule out PE. Review of Systems Review of Systems: Yes all other systems are reviewed and are negative Constitutional: Constitutional: Reports no additional constitutional complaints ENT: Reports Normal hearing present Cardiovascular: Cardiovascular: Denies chest pain, Denies chest pain at rest, Denies chest pain with activity and Denies pedal edema Respiratory: Respiratory: Denies cough Gastrointestinal: Gastrointestinal: Denies abdominal pain Musculoskeletal: Musculoskeletal: Denies abnormal gait, Denies muscle cramps and Denies radiating pain into limb Integumentary/Breasts: Skin/Breast: Denies skin ulcer and Denies wounds Neurologic: Reports Normal hearing present and Denies abnormal gait Psychiatric: Psychiatric: Reports no additional psychiatric complaints PMFSH Past Medical History Medical History (Updated 09/26/20 @ 17:05 by Gregory Rainey MD) Anxiety Arthritis Depression DVT (deep venous thrombosis) Epilepsy Fever of unknown origin Hypothyroidism Family History Family History Father Stomach cancer Mother Medical history unknown Family history: reviewed and not pertinent Surgical History Surgical History No pertinent past surgical history Social History Social History Household Members: Other Housing: Prison Do you presently have visiting nurse or other home services: No Alcohol intake: unknown Smoking Status: Unknown if ever smoked Smoked in Last 30 Days: No Patient Interested in Nicotine Replacement: No Patient Given Instructions on How to Stop Smoking: No Second Hand Smoke Exposure: No Use of substances other than those prescribed or required for medical reasons: Unknown Currently Displaying Signs/Symptoms of Drug Intoxication Withdrawal: No Any prior treatment program specific to substance use: No Have you been hit, kicked, punched, or otherwise hurt by someone within the past year? If so, by whom?: No Do you feel safe in your current relationship?: No Current Relationship Is there a partner from a previous relationship who is making you feel unsafe now?: No Are you made to feel afraid or neglected: No Advance Directives: No Advance Directives Information Provided: No Do you have thoughts of harming others: None Do you have a plan to hurt others: No Plan Recently lost weight without trying: Unsure service: No Current occupational status: retired Meds Allergies Allergy/AdvReac Type Severity Reaction Status Date / Time Iodinated Contrast Media Allergy Severe UNKNOWN Verified 09/20/20 13:14 [CONTRAST, IV] nitrofurantoin Allergy Unknown UNKNOWN Verified 09/20/20 13:14 [From MACRODANTIN] phenytoin [Dilantin] Allergy Unknown anaphylaxis Verified 09/20/20 13:14 Sulfa (Sulfonamide Allergy Unknown anaphylaxis Verified 09/20/20 13:14 Antibiotics) Active Medications: Current Medications Generic Name Dose Route Start Last Admin Trade Name Freq PRN Reason Stop Dose Admin Acetaminophen 650 mg 09/25/20 22:23 Acetaminophen 325 Mg Tablet PO Q6H PRN Pain, Mild (Pain Scale 1-3) Clonazepam 1 mg 09/25/20 22:27 Clonazepam 1 Mg Tablet PO TID PRN anxiety Heparin Sodium (Porcine) 5,000 unit 09/25/20 22:30 09/26/20 13:55 Heparin Sodium,Porcine 5,000 Unit/Ml Vial SUBCUT 5,000 unit Q8H NICANOR Administration Dextrose/Sodium Chloride 1,000 mls @ 100 mls/hr 09/25/20 22:30 09/26/20 13:57 D51/2ns IVCONT 100 mls/hr .Q10H NICANOR Administration Piperacillin Sod/Tazobactam 50 mls @ 100 mls/hr 09/26/20 00:00 09/26/20 13:00 Sod 2.25 gm/ Sodium Chloride IV Infused Q6H NICANOR Infusion Levothyroxine Sodium 25 mcg 09/26/20 06:30 09/26/20 06:04 Levothyroxine Sodium 25 Mcg Tablet PO 25 mcg DAILY@0630 NICANOR Administration Paroxetine HCl 30 mg 09/26/20 09:00 09/26/20 08:43 Paroxetine Hcl 30 Mg Tablet PO 30 mg DAILY NICANOR Administration Pharmacy Consult 1 each 09/25/20 21:53 Consult Rx Perform Med Rec MISCELLANE ONCE PRN Consult order Pharmacy Consult 1 each 09/25/20 22:42 Consult Rx Vancomycin Dosing MISCELLANE DAILY PRN Consult order Senna 17.2 mg 09/25/20 22:23 Sennosides 8.6 Mg Tablet PO BEDTIME PRN Constipation Sodium Chloride 3 ml 09/26/20 00:00 09/26/20 15:42 0.9 % Sodium Chloride Flush 3 Ml Syringe IVFLUSH Not Given QSHIFT [facility] Warfarin Sodium 3 mg 09/26/20 18:00 Warfarin Sodium 3 Mg Tablet PO DAILY@1800 [facility] Zolpidem Tartrate 5 mg 09/25/20 22:23 Zolpidem Tartrate 5 Mg Tablet PO BEDTIME PRN Insomnia Home Medications Medication Instructions Recorded Confirmed Last Taken Type paroxetine HCl 30 mg tablet 30 mg PO DAILY 06/06/20 09/25/20 Unknown History clonazepam 1 mg PO TID PRN 08/28/20 09/25/20 Unknown History levothyroxine 25 mcg PO DAILY@0630 08/28/20 09/25/20 Unknown History Physical Exam Vital Signs: Vital Signs: Last Vital Signs Temp 97.2 F 09/26/20 15:19 Pulse 90 09/26/20 15:19 Resp 18 09/26/20 15:19 BP 111/62 09/26/20 15:19 Pulse Ox 98 09/26/20 15:19 Body Mass Index 33.3 Const: Orientation/consciousness: oriented to person, oriented to place and oriented to time HENMT: Head: Yes normal to inspection Neck: Neck: Yes normal visual inspection Carotids: no bruits Chest: Chest palpation & inspection: normal inspection of the chest Resp: Effort & Inspection: normal respiratory effort and able to speak in complete sentences Auscultation: clear to auscultation bilaterally, no crackles, no rales, no rhonchi and no wheezes Cardio: Rate: regular rate Rhythm: regular rhythm Heart sounds: S1 normal heart sound present and S2 normal heart sound present Bruits: no carotid bruits Peripheral pulses: Peripheral pulses 2+ throughout GI: Inspection: Yes normal to inspection Skin: Other: Right upper extremity in cast Wounds: no wounds Hair: normal Neuro: General: oriented to person, oriented to place and oriented to time Cranial nerves: Yes CN's II-XII intact bilaterally and Yes Normal hearing present Cognition (Neuro): normal cognition Motor exam (neuro): 5/5 motor strength present throughout Extrem: Other: venous exam: +2 edema bilaterally. No evidence of ulcerations. Feet warm with good capillary refill General: No clubbing, No cyanosis and No edema Psych: Appearance: grossly normal Mental Status: mental status grossly normal Speech and movement: Normal speech and movement present Results Labs Result diagrams: 09/26/20 05:24 09/26/20 05:24 Labs: Abnormal lab results 09/25/20 09/25/20 09/25/20 Range/Units 16:25 16:25 16:26 WBC (4.8-10.8) X10*3/uL Hct (37-47) % Immature Gran % (Auto) (0.0-0.4) % Neut % (Auto) (45-73) % Lymph % (Auto) (20-40) % Lymph # (Auto) (1.2-4.9) X10*3/uL Abs Immat Gran (auto) (0.00-0.03) X10*3/uL Absolute Neuts (auto) (2.0-8.3) X10*3/uL PT 23.4 H D (10.8-13.0) SEC INR 2.0 H (0.9-1.1) Sodium 134 L (135-145) mmol/L Carbon Dioxide (22-29) mmol/L BUN 59 H D (9-16) mg/dL Random Glucose 164 H D (60-115) mg/dL Lactic Acid (0.5-2.0) mmol/L Lactic Acid Fup @ 2Hr (0.5-2.0) mmol/L Calcium (8.4-10.2) mg/dL Magnesium 2.8 H (1.6-2.6) mg/dL Total Bilirubin 1.7 H (0.0-1.0) mg/dL Direct Bilirubin 0.8 H (0.0-0.5) mg/dL AST 33 H D (5-31) U/L Troponin I High Sens 33.0 H D (<3.5-17.0) ng/L B-Natriuretic Peptide 219 H (<100) pg/mL Total Protein 6.4 L (6.5-8.0) g/dL 0309/25/20 09/25/20 Range/Units 18:37 20:45 21:48 WBC (4.8-10.8) X10*3/uL Hct (37-47) % Immature Gran % (Auto) (0.0-0.4) % Neut % (Auto) (45-73) % Lymph % (Auto) (20-40) % Lymph # (Auto) (1.2-4.9) X10*3/uL Abs Immat Gran (auto) (0.00-0.03) X10*3/uL Absolute Neuts (auto) (2.0-8.3) X10*3/uL PT (10.8-13.0) SEC INR (0.9-1.1) Sodium (135-145) mmol/L Carbon Dioxide (22-29) mmol/L BUN (9-16) mg/dL Random Glucose (60-115) mg/dL Lactic Acid 2.6 H* (0.5-2.0) mmol/L Lactic Acid Fup @ 2Hr 2.1 H* (0.5-2.0) mmol/L Calcium (8.4-10.2) mg/dL Magnesium (1.6-2.6) mg/dL Total Bilirubin (0.0-1.0) mg/dL Direct Bilirubin (0.0-0.5) mg/dL AST (5-31) U/L Troponin I High Sens 30.1 H (<3.5-17.0) ng/L B-Natriuretic Peptide (<100) pg/mL Total Protein (6.5-8.0) g/dL 09/26/20 09/26/20 09/26/20 Range/Units 05:24 05:24 05:24 WBC 11.5 H (4.8-10.8) X10*3/uL Hct 47.1 H (37-47) % Immature Gran % (Auto) 0.8 H (0.0-0.4) % Neut % (Auto) 84.6 H (45-73) % Lymph % (Auto) 5.2 L (20-40) % Lymph # (Auto) 0.6 L (1.2-4.9) X10*3/uL Abs Immat Gran (auto) 0.09 H (0.00-0.03) X10*3/uL Absolute Neuts (auto) 9.7 H (2.0-8.3) X10*3/uL PT 25.2 H (10.8-13.0) SEC INR 2.1 H (0.9-1.1) Sodium (135-145) mmol/L Carbon Dioxide 19 L (22-29) mmol/L BUN 49 H (9-16) mg/dL Random Glucose 178 H (60-115) mg/dL Lactic Acid (0.5-2.0) mmol/L Lactic Acid Fup @ 2Hr (0.5-2.0) mmol/L Calcium 8.1 L D (8.4-10.2) mg/dL Magnesium (1.6-2.6) mg/dL Total Bilirubin (0.0-1.0) mg/dL Direct Bilirubin (0.0-0.5) mg/dL AST (5-31) U/L Troponin I High Sens (<3.5-17.0) ng/L B-Natriuretic Peptide (<100) pg/mL Total Protein (6.5-8.0) g/dL Short CBC 09/26/20 Range/Units 05:24 WBC 11.5 H (4.8-10.8) X10*3/uL Hgb 15.7 (12.0-16.0) g/dl Hct 47.1 H (37-47) % Plt Count 244 (160-400) X10*3/uL BMP 09/25/20 09/26/20 16:26 05:24 Sodium 134 L 136 Potassium 4.6 3.5 D Chloride 98 106 Carbon Dioxide 23 19 L BUN 59 H D 49 H Creatinine 1.16 0.81 Calcium 9.3 D 8.1 L D Liver Function 09/25/20 Range/Units 16:26 Total Bilirubin 1.7 H (0.0-1.0) mg/dL Direct Bilirubin 0.8 H (0.0-0.5) mg/dL AST 33 H D (5-31) U/L ALT 25 (0-31) U/L Alkaline Phosphatase 94 D (39-117) U/L Albumin 3.7 (3.5-5.0) g/dL Urine 09/25/20 Range/Units 20:45 Urine Color YELLOW Urine Appearance CLEAR Urine pH 5.5 (5.0-8.0) Ur Specific [place] 1.025 (1.005-1.025) Urine Protein NEG (NEG-TRACE) MG/DL Urine Glucose (UA) NEG (NEG) MG/DL All other labs normal. Assessment and Plan (1) DVT (deep venous thrombosis): Status: Inactive Patient with reported DVT. I have been unable to see a written report of this DVT. She did undergo of a V/Q scan which was low probability of DVT. At the current time she is therapeutic on are Coumadin with an INR of 2.1. I have taken the liberty of ordering a repeat DVT study to rule out the DVT. I would not recommend any additional intervention. She appears to be stable from her DVT perspective. Would continue medical workup of this lethargy and fever of unknown origin. We will follow up with DVT study. Thank you for allowing us to participate in her care. If there are any questions or concerns please do not hesitate to contact us. Procedures Date of Service Date of Service: 09/26/20
[2020-09-26] MEDS: Warfarin Sodium 3 MG TABLET PO (18:41)
[2020-09-27] VITALS (7 sets, daily range): BP systolic 97–120; BP diastolic 50–56; PULSE 58–80; RESP 16–20; TEMP 36–36.6; O2SAT 96–100
[2020-09-27] MEDS: 0.9 % Sodium Chloride Flush 3 ML SYRINGE IVFLUSH ×2 (01:11→08:17)
[2020-09-27] MEDS: Piperacillin Sodium/Tazobactam 2.25 GM in 0.9 % Sodium Chloride 50 ML IV ×4 (01:11→18:15)
[2020-09-27] MEDS: Dextrose 5 % and 0.45 % NaCl 1,000 ML 100 ML IVCONT ×2 (04:24→15:23)
[2020-09-27] MEDS: Heparin Sodium,Porcine 5,000 UNIT/ML VIAL 5000 UNIT SUBCUT ×3 (05:41→23:39)
[2020-09-27] MEDS: Levothyroxine Sodium 25 MCG TABLET PO (05:41)
--- NOTE | 2020-09-27 07:30 | CA_ITS ---
Transthoracic Echocardiogram Patient (Last, First, Middle): Claudia Mccollum, Gender: Female Date of : 1945 Age: 75 Procedure Date: 09/27/2020 Procedure Type: Transthoracic Echocardiogram Location: S3W Height: 152.4 cm Weight: 77.11 kg BSA: 1.74 m2 Heart Rate: bpm BP: 135 / 70 mmHg Electrical Mechanic: RORO Referring MD: Abram Saldana MD Symptoms: elevetd trops Study Quality: Fair ECG Rhythm: Accelerated junctional rhythm/sinus in some areas Conclusions: - The left ventricular systolic function is normal. The visually estimated ejection fraction is between 65-70%. - No obvious valvular pathology seen on this study. Findings Left Ventricle Normal left ventricular cavity size. There is normal left ventricular wall thickness. The left ventricular systolic function is normal. The visually estimated ejection fraction is between 65-70%. There is no evidence of regional wall motion abnormalities. Diastolic function is indeterminate on the basis of available data. Right Ventricle Normal right ventricular cavity size and systolic function. Atria The left atrium is normal in size. The right atrium is normal in size. Aortic Valve The aortic valve was not well visualized. There is no aortic valve stenosis. There is no aortic valve regurgitation. Mitral Valve The mitral valve appears normal. There is no mitral valve regurgitation. There is no mitral valve stenosis. Pulmonic Valve The pulmonic valve was not well visualized. Tricuspid Valve Normal tricuspid valve structure. There is trace tricuspid valve regurgitation. The pulmonary artery systolic pressure is normal. Great Vessels The aortic annulus, sinuses of valsalva, and asc aorta are normal in size. Venous The inferior vena cava is normal in size and collapses greater than 50% with inspiration. Pericardium/Pleural There is no evidence of pericardial effusion. Prior Study Comparison No prior study available for comparison. Recommendations, Care & Conclusions No obvious valvular pathology seen on this study. Measurements 2D Linear Measurements IVSd: 0.86 0.6-0.9/0.6-1.0 cm LVIDd: 3.57 3.9-5.3/4.2-5.9 cm LVIDd Index: 2.05 2.4-3.2/2.2-3.1 cm/m2 LVIDs: 2.82 2.0-3.6 cm LVPWd: 1.11 0.7-1.1 cm Ao Root: 2.50 2.1-3.5 cm LA Diam: 2.40 2.7-3.8/3.0-4.0 cm LAIDs Index: 1.38 1.5-2.3 cm/m2 LV Mass: 129.13 67-162/88-224 g LV Mass Index: 74.21 43-95/49-115 g/m2 LVOT Diam: 2.00 3.0+(-)1.3 cm Mitral Valve MV Pk E: 0.67 MV PK A: 0.29 MV Decel Time: 170.00 E/A: 2.30 E'Lateral: 8.70 E'Medial: 6.96 E/E' Med: 9.70 E/E' Lat: 7.70 PHT: 50.00 MVA PHT: 4.40 Decel [place]: 3.96 Aortic Valve AoV Pk Justin: 1.30 AoV Pk Grad: 7.00 LVOT LVOT Pk Justin: 1.31 LVOT Mn Justin: 0.74 LVOT VTI: 0.23 LVOT Pk Grad: 7.00 LVOT Mn Grad: 3.00 LVOT Diam: 2.00 LVOT Area: 3.14 Diastolic Function MV Pk E: 0.67 MV Pk A: 0.29 E/A: 2.30 E'Medial: 6.96 E/E' Med: 9.70 E' Laterial: 8.70 E/E' Lat: 7.70 Tricuspid Valve TR Pk Justin: 2.35 TR Pk Grad: 22.00 RA Press: 3.00 RVSP: 25.00 Great Vessels Aorta Ao Root-2D: 2.50 2.0-3.7 cm Ao Asc: 3.00 2.1-3.4 cm Updated in Other Vendor System with Status of Final Derek Adame MD electronically signed on 09/27/2020 12:34:18 PM with status of Final
[2020-09-27] MEDS: PARoxetine HCL 30 MG TABLET PO (08:15)
--- NOTE | 2020-09-27 08:40 | MHC.CLN ---
RE: CONSULT SEE PROGRESS NOTE DATED 09/26/20 PR[address] AND [address] IN [address] TO INCREASE KCALS AND PROMOTE WOUND HEALING SUPPLY SPECIALIST REC PUREED DIET 09/26 SEE REC PT FOLLOWS VEGAN DIET; FACILITY REPORTS PT ONLY EATING OATMEAL AND [employer] KITCHEN AWARE AND WILL ACCOMMODATE VEGAN DIET SEE ALSO CLINICAL NUTRITION ASSESSMENT MONITOR PO INTAKE CLOSELY
--- NOTE | 2020-09-27 10:26 | MHC.SLORD ---
SPOOL SANDER attempted to see patient this morning for dysphagia treatment. However, patient was unavailable. Plan to follow up later today if available or tomorrow morning. Patient reports being a vegan and having a softer diet at baseline. SPOOL SANDER called and spoke with nurse from [facility] where patient resides. Per nurse, patient is on regular solids and thin liquids. However, since losing her dentures, she prefers softer solids. Bedside dysphagia evaluation completed yesterday, patient was recommended PUREED (NDD1) solids due to her aversion to harder foods and THIN liquids. Name: Claudia Mccollum Date of : 1945 Age: 75 Date of Registration: 09/25/20 Speech Language Pathology Order Status:
[2020-09-27 10:47] LABS: Prothrombin Time 36.3 SEC (10.8-13.0)
--- NOTE | 2020-09-27 10:51 | P.PNCA_ITS ---
Subjective Subjective Date of Service: 09/27/20 Interval history: Patient is quite confused and not able to offer much information. Review of Systems Review of Systems Yes Unobtainable due to mental status Constitutional: Reports no additional constitutional complaints Reports Normal hearing present Cardiovascular: Denies chest pain, Denies chest pain at rest, Denies chest pain with activity and Denies pedal edema Respiratory: Denies cough Gastrointestinal: Denies abdominal pain Musculoskeletal: Denies abnormal gait, Denies muscle cramps and Denies radiating pain into limb Skin/Breast: Denies skin ulcer and Denies wounds Reports Normal hearing present and Denies abnormal gait Psychiatric: Reports no additional psychiatric complaints Physical Exam Vital Signs: Last Vital Signs Temp 97.4 F 09/27/20 07:44 Pulse 71 09/27/20 07:44 Resp 18 09/27/20 07:44 BP 116/56 L 09/27/20 07:44 Pulse Ox 100 09/27/20 07:44 Body Mass Index 33.3 Const General: no acute distress HENMT Other: Unremarkable Neck Neck: Yes normal visual inspection Chest Chest palpation & inspection: normal inspection of the chest Resp Auscultation: clear to auscultation bilaterally, no crackles and no wheezes Cardio Jugular venous distension: no JVD Palpation: normal PMI Heart sounds: S1 normal heart sound present, S2 normal heart sound present, no gallops, no murmurs and no rubs GI Palpation (GI): Soft to palpation Back/Spine/Pelvis Other: unremarkable Skin General skin exam: no rashes or lesions noted Neuro Cranial nerves: Yes Normal hearing present Extrem General: Yes no clubbing, cyanosis or edema Psych Mental Status: other Results Labs and Meds Result diagrams: 09/26/20 05:24 09/26/20 05:24 Lab results: Laboratory Results - last 24 hr 09/27/20 10:12 PT 36.3 H D INR 3.0 H Imaging Radiologist's impression: Impressions Venous Duplex 09/26/20 17:30 IMPRESSION: Bilateral DVT as described above. Abdomen/Pelvis CT 09/26/20 18:10 IMPRESSION: There is no acute abnormality the abdomen or the pelvis. Lower Extremity CT 09/26/20 18:10 IMPRESSION: No evidence for osteomyelitis. Small amount of edema and fluid in the anterior leg subcutaneous tissue but no drainable fluid collection or abscess. Progress Note: A&P Assessment and plan (1) Accelerated idioventricular rhythm: Status: Acute (2) Elevated troponin: Status: Acute Assessment and Plan: She does have evidence of accelerated junctional rhythm intermittently. High sensitivity troponins are slightly elevated. We will get an echocardiogram for cardiac function assessment. Keep electrolytes including potassium and mag nesium at optimal levels. No specific treatment for the junctional rhythm itself. Otherwise patient appears much older than her stated age and also confused and hence not able to have any meaningful conversation. Will follow with you. Fall Risk Details Current Medications: Current Medications Generic Name Dose Route Start Last Admin Trade Name Freq PRN Reason Stop Dose Admin Acetaminophen 650 mg 09/25/20 22:23 Acetaminophen 325 Mg Tablet PO Q6H PRN Pain, Mild (Pain Scale 1-3) Clonazepam 1 mg 09/25/20 22:27 Clonazepam 1 Mg Tablet PO TID PRN anxiety Heparin Sodium (Porcine) 5,000 unit 09/25/20 22:30 09/27/20 05:41 Heparin Sodium,Porcine 5,000 Unit/Ml Vial SUBCUT 5,000 unit Q8H NICANOR Administration Dextrose/Sodium Chloride 1,000 mls @ 100 mls/hr 09/25/20 22:30 09/27/20 04:24 D51/2ns IVCONT 100 mls/hr .Q10H NICANOR Administration Piperacillin Sod/Tazobactam 50 mls @ 100 mls/hr 09/26/20 00:00 09/27/20 06:18 Sod 2.25 gm/ Sodium Chloride IV Infused Q6H NICANOR Infusion Levothyroxine Sodium 25 mcg 09/26/20 06:30 09/27/20 05:41 Levothyroxine Sodium 25 Mcg Tablet PO 25 mcg DAILY@0630 NICANOR Administration Paroxetine HCl 30 mg 09/26/20 09:00 09/27/20 08:15 Paroxetine Hcl 30 Mg Tablet PO 30 mg DAILY NICANOR Administration Pharmacy Consult 1 each 09/25/20 21:53 Consult Rx Perform Med Rec MISCELLANE ONCE PRN Consult order Pharmacy Consult 1 each 09/25/20 22:42 Consult Rx Vancomycin Dosing MISCELLANE DAILY PRN Consult order Senna 17.2 mg 09/25/20 22:23 Sennosides 8.6 Mg Tablet PO BEDTIME PRN Constipation Sodium Chloride 3 ml 09/26/20 00:00 09/27/20 08:17 0.9 % Sodium Chloride Flush 3 Ml Syringe IVFLUSH 3 ml QSHIFT NICANOR Administration Warfarin Sodium 3 mg 09/26/20 18:00 09/26/20 18:41 Warfarin Sodium 3 Mg Tablet PO 3 mg DAILY@1800 NICANOR Administration Zolpidem Tartrate 5 mg 09/25/20 22:23 Zolpidem Tartrate 5 Mg Tablet PO BEDTIME PRN Insomnia Time Spent With Patient Time: Total time spent is greater than 50% in coordination of care (as documented) at patient's floor/unit and/or counseling patient: Time with patient: less than 15 minutes Procedures Date of Service Date of Service: 09/27/20
--- NOTE | 2020-09-27 11:36 | HO.PM.IMPN ---
Subjective Subjective Date of Service: 09/27/20 Review of Systems Seen in f/u for fever of unknown source. No further fever Physical Exam Vital Signs: Vital Signs: Last Vital Signs Temp 97.9 F 09/27/20 11:23 Pulse 74 09/27/20 11:23 Resp 17 09/27/20 11:23 BP 120/56 L 09/27/20 11:23 Pulse Ox 100 09/27/20 11:23 Body Mass Index 33.3 Const: General: cooperative Orientation/consciousness: oriented to person and oriented to place Chest: Chest palpation & inspection: normal inspection of the chest Resp: Effort & Inspection: normal respiratory effort and able to speak in complete sentences GI: Inspection: Yes normal to inspection Auscultation: normal bowel sounds Rectal Exam - Female: No tenderness Skin: Other: Neuro: General: oriented to person and oriented to place Objective Data Current Medications Generic Name Dose Route Start Last Admin Trade Name Freq PRN Reason Stop Dose Admin Acetaminophen 650 mg 09/25/20 22:23 Acetaminophen 325 Mg Tablet PO Q6H PRN Pain, Mild (Pain Scale 1-3) Clonazepam 1 mg 09/25/20 22:27 Clonazepam 1 Mg Tablet PO TID PRN anxiety Heparin Sodium (Porcine) 5,000 unit 09/25/20 22:30 09/27/20 05:41 Heparin Sodium,Porcine 5,000 Unit/Ml Vial SUBCUT 5,000 unit Q8H NICANOR Administration Dextrose/Sodium Chloride 1,000 mls @ 100 mls/hr 09/25/20 22:30 09/27/20 04:24 D51/2ns IVCONT 100 mls/hr .Q10H NICANOR Administration Piperacillin Sod/Tazobactam 50 mls @ 100 mls/hr 09/26/20 00:00 09/27/20 06:18 Sod 2.25 gm/ Sodium Chloride IV Infused Q6H NICANOR Infusion Levothyroxine Sodium 25 mcg 09/26/20 06:30 09/27/20 05:41 Levothyroxine Sodium 25 Mcg Tablet PO 25 mcg DAILY@0630 NICANOR Administration Paroxetine HCl 30 mg 09/26/20 09:00 09/27/20 08:15 Paroxetine Hcl 30 Mg Tablet PO 30 mg DAILY NICANOR Administration Pharmacy Consult 1 each 09/25/20 21:53 Consult Rx Perform Med Rec MISCELLANE ONCE PRN Consult order Pharmacy Consult 1 each 09/25/20 22:42 Consult Rx Vancomycin Dosing MISCELLANE DAILY PRN Consult order Senna 17.2 mg 09/25/20 22:23 Sennosides 8.6 Mg Tablet PO BEDTIME PRN Constipation Sodium Chloride 3 ml 09/26/20 00:00 09/27/20 08:17 0.9 % Sodium Chloride Flush 3 Ml Syringe IVFLUSH 3 ml QSHIFT NICANOR Administration Warfarin Sodium 3 mg 09/26/20 18:00 09/26/20 18:41 Warfarin Sodium 3 Mg Tablet PO 3 mg DAILY@1800 NICANOR Administration Zolpidem Tartrate 5 mg 09/25/20 22:23 Zolpidem Tartrate 5 Mg Tablet PO BEDTIME PRN Insomnia Labs CBC & Chem 7: 09/26/20 05:24 09/26/20 05:24 Microbiology Microbiology Results: Microbiology 09/25/20 18:36 Blood - Venous Blood Culture - Preliminary No growth after 24 hours. 09/25/20 18:36 Blood - Venous Blood Culture - Preliminary No growth after 24 hours. Assessment and Plan (1) DARREN (acute kidney injury): Status: Acute Assessment and Plan: 75-year-old female with a past medical history of anxiety, hypothyroidism, recent admission to the hospital for a due to thrive/UTI/rhabdomyolysis/wrist fracture. Presented to the hospital today with a chief complaint of generalized weakness and poor oral intake. Fever of unknown source. Fever of on 3 and 09/26. Cultures for far negative. CT of foot negative for osteomylitis. CT of abdomen no acute finding. Covid is negative. She is on Zosyn for now, will continue and monitor cultures for another 24 hours. Generalized weakness: Likely in setting of dehydration. Supportive care. Urinalysis negative. Chest x-ray negative. COVID-19 negative. Failure to thrive: Supportive care. DARREN: Pre-renal and should improve with IVF, recheck tomorrow Lactic acidosis: IV fluids Bilateral DVT: Continue Coumadin. INR 3, no indication for IVC. History of hypothyroidism: TSH within normal limits on last admission. Continue home medication levothyroxine. Prolonged QTC: Will monitor on telemetry. Will check the electrolytes. Cardiology consult. Echocardiogram. Indeterminate troponins: EKG nonischemic. Patient denies any chest pain. Cardiology following. DVT prophylaxis: Patient on Coumadin Code status: DNR/DNI; most form in the chart
[2020-09-27 11:41] LABS: Vancomycin Trough < 3.0 mcg/mL (10.0-20.0)
--- NOTE | 2020-09-28 | EEG_ITS ---
This is a 16-channel EEG with an EKG lead. The patient is reported awake and drowsy during the tracing. Background EEG rhythm is 12 hertz, 5 to 30 microvolt posteriorly, with lower amplitude fast anteriorly. The patient transitioned into drowsiness intermittently. No definite sharp wave spikes or paroxysmal tendencies noted. Cardiac lead did not reveal any significant abnormality. Photic stimulation did not produce any significant driving. Hyperventilation was not performed. IMPRESSION: Unremarkable EEG. MD COLLETTE Schmid/KENDALL / [id number]
[2020-09-28] MEDS: 0.9 % Sodium Chloride Flush 3 ML SYRINGE IVFLUSH ×3 (00:32→16:44)
[2020-09-28] MEDS: Piperacillin Sodium/Tazobactam 2.25 GM in 0.9 % Sodium Chloride 50 ML IV ×3 (00:32→11:58)
[2020-09-28] MEDS: Dextrose 5 % and 0.45 % NaCl 1,000 ML 100 ML IVCONT (01:17)
[2020-09-28 04:00] VITALS: BP 120/66; PULSE 68; RESP 18; TEMP 36.5; O2SAT 100
[2020-09-28] MEDS: Heparin Sodium,Porcine 5,000 UNIT/ML VIAL 5000 UNIT SUBCUT ×3 (06:02→22:34)
[2020-09-28] MEDS: Levothyroxine Sodium 25 MCG TABLET PO (06:03)
[2020-09-28 06:57] LABS: Hematocrit 41.4 % (37-47); Hemoglobin 13.6 g/dl (12.0-16.0); Mean Corpuscular HGB Conc 32.9 g/dl (31.0-35.0); Mean Corpuscular Hemoglobin 29.2 pg (27.0-33.0); Mean Platelet Volume 11.2 fL (9.4-12.3); Platelet Count 182 X10*3/uL (160-400); Red Blood Count 4.65 X10*6/uL (4.20-5.50); White Blood Count 8.3 X10*3/uL (4.8-10.8)
[2020-09-28 07:11] LABS: INTERNATIONAL NORM RATIO 3.2 (0.9-1.1); Prothrombin Time 38.1 SEC (10.8-13.0)
[2020-09-28 07:29] LABS: Anion Gap 11 (12-20); Blood Urea Nitrogen 23 mg/dL (9-16); Calcium 7.6 mg/dL (8.4-10.2); Carbon Dioxide 21 mmol/L (22-29); Chloride 106 mmol/L (96-108); Creatinine Clr Calc Pharmacy 68.8; Estimated Glomerular Filt Rate > 60; Glucose Random 116 mg/dL (60-115); Potassium 3.1 mmol/L (3.3-5.1); Sodium 135 mmol/L (135-145)
[2020-09-28 08:00] VITALS: BP 100/51; PULSE 70; RESP 18; TEMP 36.6; O2SAT 100
[2020-09-28] MEDS: Potassium Chloride ER 20 MEQ TAB.ER.PRT 40 MEQ PO (08:57)
[2020-09-28] MEDS: PARoxetine HCL 30 MG TABLET PO (08:57)
--- NOTE | 2020-09-28 11:12 | MHC.CM.PN ---
Per ROUNDS discussion, Patient is not yet medically cleared for dc (Fever of unknown origin/requiring ID Consult). The goal for dc is to return to [facility] @ [facility] and CM will follow for possible need to adjust the dc plan.
--- NOTE | 2020-09-28 11:25 | MHC.CLN ---
F/U PO INTAKE REMAINS POOR DIET RX: PUREED VEGAN-APPROPRIATE INTERNAL CONSULTANT FOLLOWING PT WITH ENSURE BID AND PROSOURCE BID IN PLACE FOR WOUND HEALING PROVIDES 820KCALS, 70G PROTEIN (1.25G/KG) MONITOR AND ENCOURAGE PO CLOSELY
[2020-09-28 11:35] VITALS: BP 110/60; PULSE 89; RESP 18; TEMP 36.5; O2SAT 100
--- NOTE | 2020-09-28 11:35 | HO.VASCPN ---
Subjective Subjective Date of Service: 09/28/20 Patient reports: no new complaints and other (Swollen lower extremities.) Interval history: Patient seen examined. Events over the last few days reviewed. Patient was low probability for PE but DVT was confirmed. Has been maintained on Coumadin. Physical Exam Vital Signs: Vital Signs: Last Vital Signs Temp 97.9 F 09/28/20 08:00 Pulse 70 09/28/20 08:00 Resp 18 09/28/20 08:00 BP 100/51 L 09/28/20 08:00 Pulse Ox 100 09/28/20 08:00 Body Mass Index 33.3 Const: General: cooperative, healthy appearing and no acute distress Orientation/consciousness: oriented to person, oriented to place and oriented to time HENMT: Head: Yes normal to inspection Neck: Carotids: no bruits Chest: Chest palpation & inspection: normal inspection of the chest Resp: Effort & Inspection: normal respiratory effort and able to speak in complete sentences Auscultation: clear to auscultation bilaterally Cardio: Rate: regular rate Heart sounds: S1 normal heart sound present and S2 normal heart sound present GI: Inspection: Yes normal to inspection Skin: General skin exam: no rashes or lesions noted Wounds: wounds noted (Left lateral leg dry ulcerations) Neuro: General: oriented to person, oriented to place, oriented to time and CN's II-XI intact bilaterally Extrem: General: Yes normal to inspection, Yes full ROM and Yes edema (Plus two pitting edema bilateral) Psych: Appearance: grossly normal and well kempt Speech and movement: Normal speech and movement present Affect: normal affect Progress Note: A&P Assessment and plan (1) DVT (deep venous thrombosis): Status: Acute Assessment and Plan: In short patient has DVT you with no PE. Appears to be relatively stable with Coumadin. White count is back down within normal limits. She appears to be afebrile for the last 24 hours or so. She is stable from her DVT status. Would continue formal anticoagulation. Will for follow as needed. Thank you for allowing us to assist in his care. Fall Risk Details Current Medications: Current Medications Generic Name Dose Route Start Last Admin Trade Name Freq PRN Reason Stop Dose Admin Acetaminophen 650 mg 09/25/20 22:23 Acetaminophen 325 Mg Tablet PO Q6H PRN Pain, Mild (Pain Scale 1-3) Clonazepam 1 mg 09/25/20 22:27 Clonazepam 1 Mg Tablet PO TID PRN anxiety Heparin Sodium (Porcine) 5,000 unit 09/25/20 22:30 09/28/20 06:02 Heparin Sodium,Porcine 5,000 Unit/Ml Vial SUBCUT 5,000 unit Q8H NICANOR Administration Piperacillin Sod/Tazobactam 50 mls @ 100 mls/hr 09/26/20 00:00 09/28/20 06:51 Sod 2.25 gm/ Sodium Chloride IV Infused Q6H NICANOR Infusion Levothyroxine Sodium 25 mcg 09/26/20 06:30 09/28/20 06:03 Levothyroxine Sodium 25 Mcg Tablet PO 25 mcg DAILY@0630 NICANOR Administration Paroxetine HCl 30 mg 09/26/20 09:00 09/28/20 08:57 Paroxetine Hcl 30 Mg Tablet PO 30 mg DAILY NICANOR Administration Pharmacy Consult 1 each 09/25/20 21:53 Consult Rx Perform Med Rec MISCELLANE ONCE PRN Consult order Pharmacy Consult 1 each 09/25/20 22:42 Consult Rx Vancomycin Dosing MISCELLANE DAILY PRN Consult order Senna 17.2 mg 09/25/20 22:23 Sennosides 8.6 Mg Tablet PO BEDTIME PRN Constipation Sodium Chloride 3 ml 09/26/20 00:00 09/28/20 01:17 0.9 % Sodium Chloride Flush 3 Ml Syringe IVFLUSH 3 ml QSHIFT NICANOR Administration Warfarin Sodium 3 mg 09/26/20 18:00 09/26/20 18:41 Warfarin Sodium 3 Mg Tablet PO 3 mg DAILY@1800 NICANOR Administration Zolpidem Tartrate 5 mg 09/25/20 22:23 Zolpidem Tartrate 5 Mg Tablet PO BEDTIME PRN Insomnia Time Spent With Patient Time: Total time spent is greater than 50% in coordination of care (as documented) at patient's floor/unit and/or counseling patient: Time with patient: 15 - 24 minutes Procedures Date of Service Date of Service: 09/28/20
--- NOTE | 2020-09-28 12:23 | HO.PM.IMPN ---
Subjective Subjective Date of Service: 09/28/20 Interval History: weak Cardiovascular Cardiovascular: Reports no additional cardiovascular complaints Gastrointestinal Gastrointestinal: Reports no additional gastrointestinal complaints Physical Exam Vital Signs: Vital Signs: Last Vital Signs Temp 97.7 F 09/28/20 11:35 Pulse 89 09/28/20 11:35 Resp 18 09/28/20 11:35 BP 110/60 09/28/20 11:35 Pulse Ox 100 09/28/20 11:35 Body Mass Index 33.3 General: lethargic, no acute distress Resp: diminished CVS: S1,S2,RRR GI: soft, non tender, non distended Neuro: motor grossly weak Objective Data Current Medications Generic Name Dose Route Start Last Admin Trade Name Freq PRN Reason Stop Dose Admin Acetaminophen 650 mg 09/25/20 22:23 Acetaminophen 325 Mg Tablet PO Q6H PRN Pain, Mild (Pain Scale 1-3) Clonazepam 1 mg 09/25/20 22:27 Clonazepam 1 Mg Tablet PO TID PRN anxiety Heparin Sodium (Porcine) 5,000 unit 09/25/20 22:30 09/28/20 06:02 Heparin Sodium,Porcine 5,000 Unit/Ml Vial SUBCUT 5,000 unit Q8H NICANOR Administration Piperacillin Sod/Tazobactam 50 mls @ 100 mls/hr 09/26/20 00:00 09/28/20 11:58 Sod 2.25 gm/ Sodium Chloride IV 100 mls/hr Q6H NICANOR Administration Levothyroxine Sodium 25 mcg 09/26/20 06:30 09/28/20 06:03 Levothyroxine Sodium 25 Mcg Tablet PO 25 mcg DAILY@0630 NICANOR Administration Paroxetine HCl 30 mg 09/26/20 09:00 09/28/20 08:57 Paroxetine Hcl 30 Mg Tablet PO 30 mg DAILY NICANOR Administration Pharmacy Consult 1 each 09/25/20 21:53 Consult Rx Perform Med Rec MISCELLANE ONCE PRN Consult order Pharmacy Consult 1 each 09/25/20 22:42 Consult Rx Vancomycin Dosing MISCELLANE DAILY PRN Consult order Senna 17.2 mg 09/25/20 22:23 Sennosides 8.6 Mg Tablet PO BEDTIME PRN Constipation Sodium Chloride 3 ml 09/26/20 00:00 09/28/20 01:17 0.9 % Sodium Chloride Flush 3 Ml Syringe IVFLUSH 3 ml QSHIFT NICANOR Administration Warfarin Sodium 3 mg 09/26/20 18:00 09/26/20 18:41 Warfarin Sodium 3 Mg Tablet PO 3 mg DAILY@1800 NICANOR Administration Zolpidem Tartrate 5 mg 09/25/20 22:23 Zolpidem Tartrate 5 Mg Tablet PO BEDTIME PRN Insomnia Labs CBC & Chem 7: 09/28/20 06:48 09/28/20 06:48 Microbiology Microbiology Results: Microbiology 09/25/20 18:36 Blood - Venous Blood Culture - Preliminary No growth after 48 hours. 09/25/20 18:36 Blood - Venous Blood Culture - Preliminary No growth after 48 hours. Assessment and Plan (1) DARREN (acute kidney injury): Status: Acute Assessment and Plan: 75-year-old female with a past medical history of anxiety, hypothyroidism, recent admission to the hospital for a due to thrive/UTI/rhabdomyolysis/wrist fracture. Presented to the hospital today with a chief complaint of generalized weakness and poor oral intake. Fever of unknown source. Fever of on 09/25 and 09/26. Cultures for far negative. CT of foot negative for osteomylitis. CT of abdomen no acute finding. Covid is negative. She is on Zosyn for now, will continue and monitor Generalized weakness: Likely in setting of dehydration. Supportive care. Urinalysis negative. Chest x-ray negative. COVID-19 negative. check eeg, history of seizure? Failure to thrive: Supportive care. Bilateral DVT: Continue Coumadin. INR 3, no indication for IVC. hypothyroidism: levothyroxine.
[2020-09-28 15:38] VITALS: BP 103/60; PULSE 82; RESP 16; TEMP 36.6; O2SAT 100
[2020-09-28 19:16] VITALS: BP 99/57; PULSE 86; RESP 19; TEMP 36.4; O2SAT 100
[2020-09-28 23:11] VITALS: BP 146/63; PULSE 77; RESP 17; TEMP 36.7; O2SAT 97
[2020-09-29] MEDS: 0.9 % Sodium Chloride Flush 3 ML SYRINGE IVFLUSH ×4 (00:07→23:58)
[2020-09-29 03:20] VITALS: BP 125/58; PULSE 76; RESP 16; TEMP 36.5; O2SAT 100
[2020-09-29] MEDS: Heparin Sodium,Porcine 5,000 UNIT/ML VIAL 5000 UNIT SUBCUT ×3 (06:36→22:47)
[2020-09-29] MEDS: Levothyroxine Sodium 25 MCG TABLET PO (06:42)
[2020-09-29 07:18] LABS: INTERNATIONAL NORM RATIO 2.6 (0.9-1.1); Prothrombin Time 30.6 SEC (10.8-13.0)
[2020-09-29 07:27] LABS: Basophils Percent Auto 0.3 % (0-2); Eosinophils Percent Auto 0.3 % (0-4); Hemoglobin 14.8 g/dl (12.0-16.0); Imm Gran Abs Auto 0.24 X10*3/uL (0.00-0.03); Imm Gran Pct Auto 3.4 % (0.0-0.4); Lymphocytes Absolute Auto 0.5 X10*3/uL (1.2-4.9); Lymphocytes Percent Auto 7.2 % (20-40); MANUAL DIFF FLAG SCAN; Mean Corpuscular HGB Conc 32.9 g/dl (31.0-35.0); Mean Corpuscular Hemoglobin 29.7 pg (27.0-33.0); Mean Corpuscular Volume 90.4 fL (80-98); Monocytes Absolute Auto 0.7 X10*3/uL (0.1-1.2); Monocytes Percent Auto 9.6 % (2-11); Neutrophils Absolute Auto 5.7 X10*3/uL (2.0-8.3); Neutrophils Percent Auto 79.2 % (45-73); Platelet Count 170 X10*3/uL (160-400); Red Blood Count 4.98 X10*6/uL (4.20-5.50); Red Cell Distribution Width 13.4 % (11.0-16.0); SCAN SMEAR FLAG 1; White Blood Count 7.1 X10*3/uL (4.8-10.8)
[2020-09-29 07:41] LABS: Blood Urea Nitrogen 22 mg/dL (9-16); Calcium 7.8 mg/dL (8.4-10.2); Creatinine Clr Calc Pharmacy 76.9; Estimated Glomerular Filt Rate > 60; Glucose Fasting 106 mg/dL (60-99); Magnesium 2.3 mg/dL (1.6-2.6)
[2020-09-29 07:57] LABS: Anion Gap 12 (12-20); Carbon Dioxide 20 mmol/L (22-29); Chloride 108 mmol/L (96-108); Potassium 4.2 mmol/L (3.3-5.1); Sodium 136 mmol/L (135-145)
[2020-09-29 08:00] VITALS: BP 133/54; PULSE 84; RESP 18; TEMP 36.8; O2SAT 98
[2020-09-29 08:06] LABS: SLIDE REVIEW VERIFIED
[2020-09-29] MEDS: PARoxetine HCL 30 MG TABLET PO (08:31)
--- NOTE | 2020-09-29 10:26 | HO.PM.IMPN ---
Subjective Subjective Date of Service: 09/29/20 Interval History: feeling better today Cardiovascular Cardiovascular: Reports no additional cardiovascular complaints Genitourinary Genitourinary: Reports no additional female genitourinary complaints Physical Exam Vital Signs: Vital Signs: Last Vital Signs Temp 98.3 F 09/29/20 08:00 Pulse 84 09/29/20 08:00 Resp 18 09/29/20 08:00 BP 133/54 L 09/29/20 08:00 Pulse Ox 98 09/29/20 08:00 Body Mass Index 33.3 General: lethargic, no acute distress Resp: CTA bilateral CVS: S1,S2,RRR GI: soft, non tender, non distended Neuro: motor grossly weak, some expressive aphasia Psych: appropriate affect Objective Data Current Medications Generic Name Dose Route Start Last Admin Trade Name Freq PRN Reason Stop Dose Admin Acetaminophen 650 mg 09/25/20 22:23 Acetaminophen 325 Mg Tablet PO Q6H PRN Pain, Mild (Pain Scale 1-3) Clonazepam 1 mg 09/25/20 22:27 Clonazepam 1 Mg Tablet PO TID PRN anxiety Heparin Sodium (Porcine) 5,000 unit 09/25/20 22:30 09/29/20 06:36 Heparin Sodium,Porcine 5,000 Unit/Ml Vial SUBCUT 5,000 unit Q8H NICANOR Administration Levothyroxine Sodium 25 mcg 09/26/20 06:30 09/29/20 06:42 Levothyroxine Sodium 25 Mcg Tablet PO 25 mcg DAILY@0630 NICANOR Administration Paroxetine HCl 30 mg 09/26/20 09:00 09/29/20 08:31 Paroxetine Hcl 30 Mg Tablet PO 30 mg DAILY NICANOR Administration Pharmacy Consult 1 each 09/25/20 21:53 Consult Rx Perform Med Rec MISCELLANE ONCE PRN Consult order Pharmacy Consult 1 each 09/25/20 22:42 Consult Rx Vancomycin Dosing MISCELLANE DAILY PRN Consult order Senna 17.2 mg 09/25/20 22:23 Sennosides 8.6 Mg Tablet PO BEDTIME PRN Constipation Sodium Chloride 3 ml 09/26/20 00:00 09/29/20 08:32 0.9 % Sodium Chloride Flush 3 Ml Syringe IVFLUSH 3 ml QSHIFT NICANOR Administration Warfarin Sodium 3 mg 09/26/20 18:00 09/26/20 18:41 Warfarin Sodium 3 Mg Tablet PO 3 mg DAILY@1800 NICANOR Administration Zolpidem Tartrate 5 mg 09/25/20 22:23 Zolpidem Tartrate 5 Mg Tablet PO BEDTIME PRN Insomnia Labs CBC & Chem 7: 09/29/20 06:11 09/29/20 06:11 Microbiology Microbiology Results: Microbiology 09/25/20 18:36 Blood - Venous Blood Culture - Preliminary No growth after 48 hours. 09/25/20 18:36 Blood - Venous Blood Culture - Preliminary No growth after 48 hours. Assessment and Plan (1) DARREN (acute kidney injury): Status: Acute Assessment and Plan: 75-year-old female with a past medical history of anxiety, hypothyroidism, recent admission to the hospital for a due to thrive/UTI/rhabdomyolysis/wrist fracture. Presented to the hospital today with a chief complaint of generalized weakness and poor oral intake. Fever of unknown source. Fever of on 3 and 09/26. Cultures for far negative. CT of foot negative for osteomylitis. CT of abdomen no acute finding. Covid is negative. discussed with ID, will consider due to DVT and discontinue antibiotics, monitor off antibiotics Generalized weakness: Likely in setting of dehydration. Supportive care. Urinalysis negative. Chest x-ray negative. COVID-19 negative. check eeg, history of seizure? will check MRI brain Failure to thrive: Supportive care. Bilateral DVT: Continue Coumadin. no indication for IVC. hypothyroidism: levothyroxine.
[2020-09-29 12:00] VITALS: BP 131/61; PULSE 71; RESP 18; TEMP 36.1; O2SAT 99
[2020-09-29 15:39] VITALS: BP 109/54; PULSE 74; RESP 18; TEMP 36.3; O2SAT 100
[2020-09-29] MEDS: Warfarin Sodium 3 MG TABLET PO (17:43)
[2020-09-29 19:49] VITALS: BP 123/57; PULSE 76; RESP 16; TEMP 36.6; O2SAT 99
[2020-09-29 23:55] VITALS: BP 109/58; PULSE 76; RESP 18; TEMP 36.3; O2SAT 97
[2020-09-30 03:53] VITALS: BP 111/56; PULSE 75; RESP 20; TEMP 37; O2SAT 100
[2020-09-30 05:52] LABS: INTERNATIONAL NORM RATIO 1.6 (0.9-1.1); Prothrombin Time 19.5 SEC (10.8-13.0)
[2020-09-30] MEDS: Heparin Sodium,Porcine 5,000 UNIT/ML VIAL 5000 UNIT SUBCUT ×3 (06:21→21:48)
[2020-09-30] MEDS: Levothyroxine Sodium 25 MCG TABLET PO (06:22)
[2020-09-30 07:32] VITALS: BP 117/57; PULSE 71; RESP 20; TEMP 36.5; O2SAT 99
[2020-09-30] MEDS: PARoxetine HCL 30 MG TABLET PO (08:23)
[2020-09-30] MEDS: 0.9 % Sodium Chloride Flush 3 ML SYRINGE IVFLUSH ×3 (08:23→21:52)
--- NOTE | 2020-09-30 10:57 | HO.PM.IMPN ---
Subjective Subjective Date of Service: 09/30/20 Interval History: weak, but clearer headed Cardiovascular Cardiovascular: Reports no additional cardiovascular complaints Gastrointestinal Gastrointestinal: Reports no additional gastrointestinal complaints Physical Exam Vital Signs: Vital Signs: Last Vital Signs Temp 97.7 F 09/30/20 07:32 Pulse 71 09/30/20 07:32 Resp 20 09/30/20 07:32 BP 117/57 L 09/30/20 07:32 Pulse Ox 99 09/30/20 07:32 Body Mass Index 33.3 General: AO X 3, no acute distress, weak appearing Resp: CTA bilateral CVS: S1,S2,RRR GI: soft, non tender, non distended Neuro: motor grossly intact Psych: appropriate affect Objective Data Current Medications Generic Name Dose Route Start Last Admin Trade Name Jorgeq PRN Reason Stop Dose Admin Acetaminophen 650 mg 09/25/20 22:23 Acetaminophen 325 Mg Tablet PO Q6H PRN Pain, Mild (Pain Scale 1-3) Clonazepam 1 mg 09/25/20 22:27 Clonazepam 1 Mg Tablet PO TID PRN anxiety Heparin Sodium (Porcine) 5,000 unit 09/25/20 22:30 09/30/20 06:21 Heparin Sodium,Porcine 5,000 Unit/Ml Vial SUBCUT 5,000 unit Q8H NICANOR Administration Levothyroxine Sodium 25 mcg 09/26/20 06:30 09/30/20 06:22 Levothyroxine Sodium 25 Mcg Tablet PO 25 mcg DAILY@0630 NICANOR Administration Paroxetine HCl 30 mg 09/26/20 09:00 09/30/20 08:23 Paroxetine Hcl 30 Mg Tablet PO 30 mg DAILY NICANOR Administration Pharmacy Consult 1 each 09/25/20 21:53 Consult Rx Perform Med Rec MISCELLANE ONCE PRN Consult order Pharmacy Consult 1 each 09/25/20 22:42 Consult Rx Vancomycin Dosing MISCELLANE DAILY PRN Consult order Senna 17.2 mg 09/25/20 22:23 Sennosides 8.6 Mg Tablet PO BEDTIME PRN Constipation Sodium Chloride 3 ml 09/26/20 00:00 09/30/20 08:23 0.9 % Sodium Chloride Flush 3 Ml Syringe IVFLUSH 3 ml QSHIFT NICANOR Administration Warfarin Sodium 3 mg 09/26/20 18:00 09/29/20 17:43 Warfarin Sodium 3 Mg Tablet PO 3 mg DAILY@1800 NICANOR Administration Zolpidem Tartrate 5 mg 09/25/20 22:23 Zolpidem Tartrate 5 Mg Tablet PO BEDTIME PRN Insomnia Labs CBC & Chem 7: 09/29/20 06:11 09/29/20 06:11 Microbiology Microbiology Results: Microbiology 09/25/20 18:36 Blood - Venous Blood Culture - Preliminary No growth after 48 hours. 09/25/20 18:36 Blood - Venous Blood Culture - Preliminary No growth after 48 hours. Assessment and Plan (1) DARREN (acute kidney injury): Status: Acute Assessment and Plan: 75-year-old female with a past medical history of anxiety, hypothyroidism, recent admission to the hospital for a due to thrive/UTI/rhabdomyolysis/wrist fracture. Presented to the hospital today with a chief complaint of generalized weakness and poor oral intake. Fever of unknown source. Fever of on 09/25 and 09/26. Cultures for far negative. CT of foot negative for osteomylitis. CT of abdomen no acute finding. Covid is negative. discussed with ID, will consider due to DVT and discontinue antibiotics, monitor off antibiotics so far afebril off abx, continue to monitor for now Generalized weakness: Likely in setting of dehydration. Supportive care. Urinalysis negative. Chest x-ray negative. COVID-19 negative. check eeg, history of seizure? will check MRI brain Failure to thrive: Supportive care. Bilateral DVT: Continue Coumadin. no indication for IVC. hypothyroidism: levothyroxine.
[2020-09-30 11:19] VITALS: BP 139/67; PULSE 70; RESP 18; TEMP 36.6; O2SAT 96
[2020-09-30 15:12] VITALS: BP 116/57; PULSE 79; RESP 18; TEMP 36.3; O2SAT 100
[2020-09-30] MEDS: Warfarin Sodium 3 MG TABLET PO (17:13)
[2020-09-30 19:19] VITALS: BP 120/57; PULSE 84; RESP 18; TEMP 36.1; O2SAT 99
[2020-09-30 23:47] VITALS: BP 118/60; PULSE 84; RESP 20; TEMP 36.2; O2SAT 100
[2020-10-01 03:34] VITALS: BP 112/60; PULSE 82; RESP 20; TEMP 36.8; O2SAT 100
[2020-10-01] MEDS: Levothyroxine Sodium 25 MCG TABLET PO (05:22)
[2020-10-01] MEDS: Heparin Sodium,Porcine 5,000 UNIT/ML VIAL 5000 UNIT SUBCUT ×3 (05:22→22:43)
[2020-10-01 06:46] LABS: Hematocrit 45.7 % (37-47); Hemoglobin 15.1 g/dl (12.0-16.0); Mean Corpuscular Hemoglobin 29.8 pg (27.0-33.0); Mean Corpuscular Volume 90.1 fL (80-98); Mean Platelet Volume 11.8 fL (9.4-12.3); Platelet Count 178 X10*3/uL (160-400); Red Blood Count 5.07 X10*6/uL (4.20-5.50); Red Cell Distribution Width 13.8 % (11.0-16.0); White Blood Count 7.8 X10*3/uL (4.8-10.8)
[2020-10-01 06:59] LABS: Blood Urea Nitrogen 18 mg/dL (9-16); Calcium 8.1 mg/dL (8.4-10.2); Creatinine Clr Calc Pharmacy 85.7; Estimated Glomerular Filt Rate > 60; Glucose Fasting 95 mg/dL (60-99)
[2020-10-01 07:08] LABS: Anion Gap 14 (12-20); Carbon Dioxide 18 mmol/L (22-29); Chloride 107 mmol/L (96-108); Potassium 4.4 mmol/L (3.3-5.1); Sodium 135 mmol/L (135-145)
[2020-10-01 07:31] LABS: Band Neutrophils Percent 5 % (3-5); Lymphocytes Absolute Manual 0.5 X10*3/uL (0.6-4.8); Lymphocytes Percent Manual 6 % (20-40); Monocytes Absolute Manual 0.6 X10*3/uL (0.0-1.2); Monocytes Percent Manual 8 % (2-11); Neutrophils Absolute Manual 6.7 X10*3/uL (2.2-7.9); Neutrophils Percent Manual 81 % (45-73)
[2020-10-01 07:32] LABS: Acanthocytes 1+; Macrocytosis 1+; Platelet Estimate NORMAL (NORMAL); Platelet Morphology Comment NORMAL; RBC Morphology NOTED; Tear Drop Cells 1+
[2020-10-01 07:45] VITALS: BP 121/58; PULSE 75; RESP 15; TEMP 36.4; O2SAT 100
[2020-10-01 08:15] LABS: INTERNATIONAL NORM RATIO 1.6 (0.9-1.1); Prothrombin Time 19.2 SEC (10.8-13.0)
[2020-10-01] MEDS: 0.9 % Sodium Chloride Flush 3 ML SYRINGE IVFLUSH ×3 (08:54→22:46)
[2020-10-01] MEDS: PARoxetine HCL 30 MG TABLET PO (08:54)
[2020-10-01 11:05] VITALS: BP 122/58; PULSE 70; RESP 16; TEMP 36.4; O2SAT 100
--- NOTE | 2020-10-01 12:04 | MHC.CM.PN ---
IMM 10/01/20 Female 75 dx UTI. DP is to return to [facility] via BLS. The Patient is scheduled for an MRI today. DC after MRI. An update has been sent to [facility]. A messege was relayed to MD SANABRIA PT eval and need for 2nd Covid test. CM will continue to follow.
--- NOTE | 2020-10-01 13:21 | HO.PM.IMPN ---
Subjective Subjective Date of Service: 10/01/20 Interval History: tired today Cardiovascular Cardiovascular: Reports no additional cardiovascular complaints Gastrointestinal Gastrointestinal: Reports no additional gastrointestinal complaints Physical Exam Vital Signs: Vital Signs: Last Vital Signs Temp 97.6 F 10/01/20 11:05 Pulse 70 10/01/20 11:05 Resp 16 10/01/20 11:05 BP 122/58 L 10/01/20 11:05 Pulse Ox 100 10/01/20 11:05 Body Mass Index 33.3 General: AO X 3, no acute distress Resp: CTA bilateral CVS: S1,S2,RRR GI: soft, non tender, non distended Neuro: motor grossly intact Psych: appropriate affect Objective Data Current Medications Generic Name Dose Route Start Last Admin Trade Name Freq PRN Reason Stop Dose Admin Acetaminophen 650 mg 09/25/20 22:23 Acetaminophen 325 Mg Tablet PO Q6H PRN Pain, Mild (Pain Scale 1-3) Heparin Sodium (Porcine) 5,000 unit 09/25/20 22:30 10/01/20 05:22 Heparin Sodium,Porcine 5,000 Unit/Ml Vial SUBCUT 5,000 unit Q8H NICANOR Administration Levothyroxine Sodium 25 mcg 09/26/20 06:30 10/01/20 05:22 Levothyroxine Sodium 25 Mcg Tablet PO 25 mcg DAILY@0630 NICANOR Administration Paroxetine HCl 30 mg 09/26/20 09:00 10/01/20 08:54 Paroxetine Hcl 30 Mg Tablet PO 30 mg DAILY NICANOR Administration Pharmacy Consult 1 each 09/25/20 21:53 Consult Rx Perform Med Rec MISCELLANE ONCE PRN Consult order Pharmacy Consult 1 each 09/25/20 22:42 Consult Rx Vancomycin Dosing MISCELLANE DAILY PRN Consult order Senna 17.2 mg 09/25/20 22:23 Sennosides 8.6 Mg Tablet PO BEDTIME PRN Constipation Sodium Chloride 3 ml 09/26/20 00:00 10/01/20 08:54 0.9 % Sodium Chloride Flush 3 Ml Syringe IVFLUSH 3 ml QSHIFT NIACNOR Administration Warfarin Sodium 3 mg 09/26/20 18:00 09/30/20 17:13 Warfarin Sodium 3 Mg Tablet PO 3 mg DAILY@1800 [facility] Administration Labs CBC & Chem 7: 10/01/20 05:53 10/01/20 05:53 Microbiology Microbiology Results: Microbiology 09/25/20 18:36 Blood - Venous Blood Culture - Final No growth after 5 days. 09/25/20 18:36 Blood - Venous Blood Culture - Final No growth after 5 days. Assessment and Plan (1) DARREN (acute kidney injury): Status: Acute Assessment and Plan: 75-year-old female with a past medical history of anxiety, hypothyroidism, recent admission to the hospital for a due to thrive/UTI/rhabdomyolysis/wrist fracture. Presented to the hospital today with a chief complaint of generalized weakness and poor oral intake. Fever of unknown source. Fever of on 09/25 and 09/26. Cultures for far negative. CT of foot negative for osteomylitis. CT of abdomen no acute finding. Covid is negative. discussed with ID, will consider due to DVT, discontinued antibiotics so far afebrile off abx since 09/28 Generalized weakness: Likely in setting of dehydration. Supportive care. Urinalysis negative. Chest x-ray negative. COVID-19 negative. check eeg, history of seizure? will check MRI brain Failure to thrive: Supportive care. Bilateral DVT: Continue Coumadin. no indication for IVC. hypothyroidism: levothyroxine.
--- NOTE | 2020-10-01 13:41 | MHC.CLN ---
F/U PO INTAKE IMPROVED 50-100% DIET RX: PUREED VEGAN-APPROPRIATE PT WITH ENSURE BID AND PROSOURCE BID IN PLACE FOR WOUND HEALING PROVIDES 820KCALS, 70G PROTEIN (1.25G/KG) CONTINUE TO MONITOR AND ENCOURAGE PO CLOSELY
[2020-10-01 15:27] VITALS: BP 125/61; PULSE 81; RESP 18; TEMP 37.2; O2SAT 99
[2020-10-01] MEDS: Warfarin Sodium 3 MG TABLET PO (17:57)
[2020-10-01 19:29] VITALS: BP 133/62; PULSE 82; TEMP 36.6; O2SAT 100
[2020-10-01 23:08] VITALS: BP 128/57; PULSE 80; RESP 18; TEMP 36.5; O2SAT 99
[2020-10-02 04:00] VITALS: BP 132/62; PULSE 80; RESP 18; TEMP 36.8; O2SAT 100
[2020-10-02] MEDS: Heparin Sodium,Porcine 5,000 UNIT/ML VIAL 5000 UNIT SUBCUT ×2 (05:05→15:32)
[2020-10-02] MEDS: Levothyroxine Sodium 25 MCG TABLET PO (05:06)
[2020-10-02 06:42] LABS: INTERNATIONAL NORM RATIO 2.1 (0.9-1.1); Prothrombin Time 25.4 SEC (10.8-13.0)
[2020-10-02 07:36] VITALS: BP 113/64; PULSE 79; RESP 17; TEMP 36.6; O2SAT 100
[2020-10-02] MEDS: PARoxetine HCL 30 MG TABLET PO (08:20)
[2020-10-02] MEDS: 0.9 % Sodium Chloride Flush 3 ML SYRINGE IVFLUSH (09:27)
--- NOTE | 2020-10-02 10:01 | P.DS_ITS ---
DS: Providers Provider Date of Service: 11/24/20 Date of admission: 09/25/20 22:26 Primary care physician: Unknown Physician Consults: 09/25/20 22:23 Consult to Cardiology Routine Consulting Provider: Derek Adame Reason for consultation: prolonged QTC and indeterminate troponins 09/25/20 22:45 Consult to Infectious Diseases Routine Consulting Provider: Alana Wagner Reason for consultation: fever; unclear source 09/26/20 00:31 Consult to Vascular Surgery Routine Consulting Provider: Gregory Rainey Reason for consultation: b/l DVT DS: Diagnosis Discharge Diagnosis (1) DARREN (acute kidney injury): Status: Resolved DS: Medications Discharge Medications Home Medications: Home Medications Medication Instructions Recorded Confirmed paroxetine HCl 30 mg tablet 30 mg PO DAILY 06/06/20 09/25/20 clonazepam 1 mg PO TID PRN 08/28/20 09/25/20 levothyroxine 25 mcg PO DAILY@0630 08/28/20 09/25/20 DS: Summary Hospital Course Hospital Course: admission HPI Chief Complaint: Generalized weakness 75-year-old female with a past medical history of anxiety, arthritis, depression, epilepsy, hypothyroidism, recent admission to the hospital for failure to thrive/rhabdomyolysis/transaminitis/UTI/right wrist fracture S encephalopathy. Subsequently patient was discharged presented to the hospital with a chief complaint of generalized weakness. Mentions patient has reduced oral intake. Patient is a poor historian. Most of the history obtained from the records and the ER staff. Reportedly the patient has not been doing well at the care home and not par ticipating well with physical therapy, has poor oral intake. Duplex study showed DVT. Patient on Coumadin. Sent to the hospital for further evaluation. Patient denies any chest pain palpitations lightheadedness or dizziness. Denies any numbness tingling. Denies any fever chills cough. ER course: For ER team bedside echocardiogram showed IVC collapse-consistent with dehydration, given IV fluids. Noted to have lactic acidosis. Exam was nonfocal. Troponins were indeterminate, EKG nonischemic. Admitted to the hospital for further management. Noted to have DARREN-given IV fluids Hospital course: 75-year-old female with a past medical history of anxiety, hypothyroidism, recent admission to the hospital for a due to thrive/UTI/rhabdomyolysis/wrist fracture. Presented to the hospital today with a chief complaint of generalized weakness and poor oral intake. Fever of unknown source. Had on 09/25 and 09/26. Cultures are negative. CT of foot negative is negative for osteomylitis. CT of abdomen no acute finding. Covid is negative. discussed with ID and thought that fever likely due to to DVT and therefore antibiotics were discontinued after 48 hours. She has been afebrile since 09/28/20 Generalized weakness: Likely in setting of dehydration, has been hydrated. There was no UTI. Chest x-ray negative. COVID-19 negative. MRI 10/01/20 negative for stroke, she is back to baseline mental status, clear and lucid, Oriented x 3 Failure to thrive: Supportive care. Leg wound--present on admission--daily dressing changes Bilateral DVT: Continue Coumadin. no indication for IVC by vascular surgery, goal of INR 2 to 3. Dispo: to return to SNF Time Spent with Patient Time attestation: Total time spent providing and/or coordinating discharge services: Discharge coordination time: Greater than 30 minutes Physical Exam Vital Signs: Vital Signs: Last Vital Signs Temp 98 F 10/02/20 07:36 Pulse 79 10/02/20 07:36 Resp 17 10/02/20 07:36 BP 113/64 10/02/20 07:36 Pulse Ox 100 10/02/20 07:36 Body Mass Index 33.3 Const: General: cooperative, healthy appearing, comfortable and no acute distress Orientation/consciousness: oriented to person, oriented to place, oriented to time and patient oriented x3 Resp: Effort & Inspection: normal respiratory effort and able to speak in complete sentences Auscultation: clear to auscultation bilaterally, no crackles, no rales, no rhonchi and no wheezes Cardio: Jugular venous distension: no JVD Palpation: normal PMI Rate: regular rate Rhythm: regular rhythm Heart sounds: S1 normal heart sound present, S2 normal heart sound present, no gallops, no murmurs and no rubs Bruits: no carotid bruits Peripheral pulses: Peripheral pulses 2+ throughout GI: Inspection: Yes normal to inspection Palpation (GI): Soft to palpation and nontender Auscultation: normal bowel sounds Rectal Exam - Female: No tenderness : General: Yes no CVA tenderness Back/Spine/Pelvis: Other: unremarkable Back: no CVA tenderness Skin: Other: General skin exam: no rashes or lesions noted Wounds: no wounds and wounds noted (Left lateral leg dry ulcerations) Hair: normal Neuro: General: oriented to person, oriented to place, oriented to time, patient oriented x3 and CN's II-XI intact bilaterally Cranial nerves: Yes CN's II-XII intact bilaterally and Yes Normal hearing present Cognition (Neuro): normal cognition Motor exam (neuro): 5/5 motor strength present throughout Extrem: Other: venous exam: +2 edema bilaterally. No evidence of ulcerations. Feet warm with good capillary refill General: Yes normal to inspection, Yes full ROM, Yes no clubbing, cyanosis or edema, No clubbing, No cyanosis and Yes edema (Plus two pitting edema bilateral) Psych: Appearance: grossly normal and well kempt Mental Status: mental status grossly normal and other Speech and movement: Normal speech and movement present Affect: normal affect DS: Data Data Completed and Pending Completed studies during hospitalization [Text1]: Procedures Reposition Right Radius, External Approach (08/28/20) Reposition Right Ulna, External Approach (08/28/20) Labs on day of discharge: Laboratory Results - last 24 hr 10/02/20 05:59 PT 25.4 H D INR 2.1 H Discharge Plan Discharge Anticipated Discharge Date/Time: 10/02/20 09:54 Patient Disposition: [facility]F Discharge Diagnosis: DVT [facility] Physician,Unknown [Primary Care Provider] - Discharge Medications: New warfarin [Jantoven] 3 mg Tablet 3 mg PO DAILY@1800 Qty: 30 RF: 0 Continued paroxetine HCl 30 mg tablet 30 mg PO DAILY RF: 0 clonazepam 1 mg tablet 1 mg PO TID PRN (Reason: anxiety) RF: 0 levothyroxine 25 mcg tablet 25 mcg PO DAILY@0630 RF: 0 Discharge Orders: Discharge Order (Routine); Ordered 10/02/20 Ordered By: Kam Goodwin Diet: advance to usual diet Activity on Discharge: As tolerated Stand Alone Forms: Patient Portal Discharge page Care Plan Goals: Resolution of fever and prevent rehospitalization Health Concerns: DVT Plan of Treatment: Continue taking cvoumadin for DVT with goal of INR 2 to 3 Assessment: Blood clot Discharge Date/Time: 10/02/20 18:00
--- NOTE | 2020-10-02 10:13 | PC.NURSE ---
Pt. A+Ox3, denies pain, LS CTA, cast to R wrist and distal arm over wrist fracture, abd. soft and non-tender, +BS, incontinent of bowel and bladder, purewick in place draining clear yellow urine, trace BLE non-pitting edema noted, Stage II wound on L lateral heel and another Stage II on L lateral foot, both covered with foam dressing, pt. reports she is bedbound at baseline, able to feed herself but requires encouragement, resting in bed, call evans in reach
--- NOTE | 2020-10-02 10:15 | MHC.SLORD ---
CREATIVE SERVICES MANAGER attempted to see pt this morning for PO trials. Pt was undergoing testing and was unavailable. Per RN report, pt is tolerating current diet recommendation of PUREED (NDD1) solids and THIN liquids with pills CRUSHED IN PUREE without difficulty. Pt planned for discharge later today. Name: Claudia Mccollum Date of : 1945 Age: 75 Date of Registration: 09/25/20 Speech Language Pathology Order Status:
[2020-10-02 11:30] LABS: COVID-19 Test Negative (Negative); IDNOW Serial# 9DD0AD1C
[2020-10-02 11:39] VITALS: BP 132/75; PULSE 82; RESP 17; TEMP 36.3; O2SAT 100
[2020-10-02 15:11] VITALS: BP 135/52; PULSE 78; RESP 18; TEMP 36.6; O2SAT 95
--- NOTE | 2020-10-02 15:15 | MHC.CM.PN ---
Patient has been medically cleared for dc to SNF today. Patient will return to [facility] today at 6PM, via [facility]. Patient is aware of and in agreement with the dc plan and second IMM was addressed with her (giving Patient the original and a copy placed on the chart). Per Patient's request, CM spoke with Son/HCP/Berto at [phone] and informed him of the dc plan.
[2020-10-02] MEDS: Warfarin Sodium 3 MG TABLET PO (17:08)
== END 2020-10-02 18:00 | disposition skilled nursing facility (03) | DRG 683 ==
LOC: HO.ED 20:39 → HO.EDOVER 22:51 → HO.S3 23:07 → HO.IMC 09-27 12:27
PROVIDERS: Internal Medicine; Admitting Provider Hospitalist; Emergency Provider Emergency Medicine; PCP Internal Medicine; Visit Provider Internal Medicine
DX: N17.9 Acute kidney failure, unspecified (principal); E87.2 Acidosis; I82.413 Acute embolism and thrombosis of femoral vein, bilateral; L97.829 Non-pressure chronic ulcer of other part of left lower leg with unspecified severity; F41.9 Anxiety disorder, unspecified; E03.9 Hypothyroidism, unspecified; G40.909 Epilepsy, unspecified, not intractable, without status epilepticus; R94.31 Abnormal electrocardiogram [ECG] [EKG]; E86.0 Dehydration; Z20.822 Contact with and (suspected) exposure to COVID-19; Z88.2 Allergy status to sulfonamides; Z79.01 Long term (current) use of anticoagulants; Z79.890 Hormone replacement therapy; Z79.899 Other long term (current) drug therapy; Z66 Do not resuscitate
CPT/HCPCS: 36415; 70450; 70551; 71045; 73700; 74176; 78580; 80048; 80076; 80202; 81003; 83605; 83735; 83880; 84443; 84484; 85007; 85025; 85027; 85610; 87040; 87635; 92610; 93005; 93306; 93970; 95816; 97162; 99285; A9540; J0696; J2543; J3370

== ENCOUNTER 2020-10-26 08:28 | Outpatient (REF) | payer MEDICARE, SELFPAY ==
--- NOTE | ~2020-10-26 | XR_ITS ---
EXAMINATION: RIGHT WRIST X-RAY CLINICAL INFORMATION: Fracture COMPARISON: Previous x-rays most recent August 2020 TECHNIQUE: 3 views of the right wrist FINDINGS: There is a transverse impacted fracture of the right distal radius. There is an ulnar styloid fracture. Fractures appear unchanged from previous exam. There is arthritis at the first LONG TERM joint and trapezoid trapezium. Scaphoid joints. Soft tissues are unremarkable. XR/XR hand wrist RT IMPRESSION: No change in distal radius and ulnar styloid fractures.
== END 2020-10-26 08:29 | disposition home or self-care (01) ==
LOC: HO.HOSX 08:28
PROVIDERS: Visit Provider Physician Assistant
DX: S52.501D Unspecified fracture of the lower end of right radius, subsequent encounter for closed fracture with routine healing (principal); S52.601D Unspecified fracture of lower end of right ulna, subsequent encounter for closed fracture with routine healing
CPT/HCPCS: 73110; 73130; 99212

== ENCOUNTER 2020-11-23 07:34 | Outpatient (REF) | payer MEDICARE, SELFPAY | END 2020-11-23 07:35 | disposition home or self-care (01) | LOC: HO.HOSX 07:34 | PROVIDERS: Visit Provider Physician Assistant | DX: Z13.89 Encounter for screening for other disorder (principal) ==

== ENCOUNTER 2022-09-03 06:13 | Emergency (ER) | payer MEDICARE, MEDICAID, SELFPAY ==
--- NOTE | ~2022-09-03 | CT_ITS ---
EXAMINATION: CT HEAD WITHOUT CONTRAST (STROKE PROTOCOL) CLINICAL INFORMATION: Stroke protocol. Confusion. COMPARISON: MRI brain dated 10/01/2020 TECHNIQUE: Contiguous axial imaging was performed from the skull base to vertex without intravenous administration of contrast. This CT examination was performed using dose optimization techniques as appropriate, variously including the following: *Automated exposure control *Adjustment of mA and/or kV according to patient size (this includes techniques or standardized protocols for targeted exams where dose is matched to indication/reason for exam; i.e. extremities or head) *Use of iterative reconstruction technique DLP: 676 mGy-cm FINDINGS: There is no evidence of acute intracranial hemorrhage or territorial infarction. No abnormal mass effect or midline shift is seen. Taveras to white matter differentiation is well preserved. No extra-axial fluid collections are identified. No hydrocephalus. Proportional prominence of the ventricles and sulcal spaces is consistent with mild volume loss. Patchy periventricular and deep white matter hypoattenuation is consistent with mild small vessel ischemic changes. No acute osseous or soft tissue abnormality. The mastoid air cells and visualized portions of the paranasal sinuses are well aerated. CT/CT head for stroke IMPRESSION: No acute intracranial pathology. This critical result was discussed with Dr Alegria at 09/03/2022 6:27 AM and it was ascertained that the content and urgency of the report was understood at the time of direct communication.
[2022-09-03 06:18] VITALS: BP 124/75; PULSE 82; O2SAT 97
[2022-09-03 06:18] LABS: Prothrombin Time Whole Bld POC 13.3 sec (11.1-13.5); ~PT, ~INR - Anti Coag Clinic 1.1 (0.9-1.1)
--- NOTE | 2022-09-03 06:19 | ECG_ITS ---
Test Reason : STROKE Blood Pressure : / mmHG Vent. Rate : 087 BPM Atrial Rate : 087 BPM P-R Int : 142 ms QRS Dur : 060 ms QT Int : 366 ms P-R-T Axes : 072 050 067 degrees QTc Int : 440 ms Normal sinus rhythm Low voltage QRS Septal infarct (cited on or before 27-AUG-2020) Abnormal ECG When compared with ECG of 26-SEP-2020 09:30, Sinus rhythm has replaced Junctional rhythm Referred By: Dinesh Shepard Electronically Signed By:NATHAN ELIZABETH MD
[2022-09-03 06:21] LABS: Glucose, Whole Blood 136 mg/dL (60-115)
--- NOTE | 2022-09-03 06:24 | ED.NEUROSD ---
HPI - Neuro Symptoms/Deficit General Stated Complaint: stroke Time Seen by Provider: 09/03/22 06:17 Source: EMS and RN notes reviewed Mode of arrival: EMS History of Present Illness HPI Narrative: Patient on intermediate with history of anxiety, depression, arthritis, epilepsy, hypothyroidism with history of bilateral DVT on Eliquis last known time was 03:00 at 06:00 o'clock when nurses were rounding noticed patient confused with slurred speech no focal weakness noticed patient just complaining that she is feeling numb all over Related Data Home Medications Medication Instructions Recorded Confirmed paroxetine HCl 30 mg tablet 30 mg PO DAILY 06/06/20 09/25/20 clonazepam 1 mg tablet 1 mg PO TID PRN anxiety 08/28/20 09/25/20 levothyroxine 25 mcg tablet 25 mcg PO DAILY@0630 08/28/20 09/25/20 Previous Rx's Medication Instructions Recorded warfarin 3 mg tablet (Jantoven) 3 mg PO DAILY@1800 #30 tabs 10/02/20 Allergies Allergy/AdvReac Type Severity Reaction Status Date / Time Iodinated Contrast Media Allergy Severe UNKNOWN Verified 09/20/20 13:14 [CONTRAST, IV] nitrofurantoin Allergy Unknown UNKNOWN Verified 09/20/20 13:14 [From MACRODANTIN] phenytoin [Dilantin] Allergy Unknown anaphylaxis Verified 09/20/20 13:14 Sulfa (Sulfonamide Allergy Unknown anaphylaxis Verified 09/20/20 13:14 Antibiotics) Review of Systems Review of Systems: Yes all other systems are reviewed and are negative PMFSH Past Medical History Medical History Accelerated idioventricular rhythm Anxiety Arthritis Depression DVT (deep venous thrombosis) Epilepsy Fever of unknown origin Hypothyroidism Surgical History No pertinent past surgical history Family History Family History Father Stomach cancer Mother Medical history unknown Social History Social History Household Members: Other Housing: [facility] Do you presently have visiting nurse or other home services: No Alcohol intake: unknown Second Hand Smoke Exposure: No service: No Current occupational status: retired Physical Exam Vital Signs: Appearance: Alert. Oriented X3. No acute distress. Febrile to touch? Eyes: PERRLA, No Nystagmus ENT: Pharynx normal. Oral Mucosa moist Neck: Normal inspection. Neck supple. CVS: Normal heart rate and rhythm. Pulses normal. Respiratory: No respiratory distress. Equal air entry bilateral, no wheezing/rales/rhonchi Abdomen: Soft and nontender. Bowel sounds are present, no mass palpable, no CVA tenderness Skin: Skin warm and dry. Normal skin color. Normal skin turgor. Erythematous rash bilateral lower extremities Extremities: No lower extremity edema. No calf tenderness Neuro: Oriented X 3. No motor deficit. No sensory deficit.No cerebellar signs , cranial nerves II-XII intact Medical Decision Making Medical Decision Making [facility] Narrative: Patient altered mental status sensorium likely metabolic encephalopathy/UTI/sepsis. Will do labs workup, blood culture lactic acid CT head negative for acute patient signed out to Dr. Almodovar for further evaluation Lab Data Labs: Lab Results 09/03/22 09/03/22 Range/Units 06:15 06:16 Whole Blood PT 13.3 (11.1-13.5) sec Whole Blood INR 1.1 (0.9-1.1) POC Glucose 136 H (60-115) mg/dL NIH Stroke Scale Internal: Initial- Upon Arrival Level of Consciousness: Alert Level of Consciousness Questions: Answers both questions correctly Level of Consciousness Commands: Performs both tasks correctly Best Gaze: Normal Visual: No visual loss Facial Palsy: Normal Motor Arm (Right): No drift Motor Arm (Left): No drift Motor Leg (Right): No drift Motor Leg (Left): No drift Limb Ataxia: Absent Sensory: Normal Best Language: No aphasia Dysarthia: Normal Extinction and Inattention: No abnormality Score: 0 Discharge Plan Discharge Clinical Impression: Altered mental state Patient Disposition: Still a Patient Prescriptions: No [facility] paroxetine HCl 30 mg tablet 30 mg PO DAILY clonazepam 1 mg tablet 1 mg PO TID PRN (Reason: anxiety) Rx Instructions: Provider increased RX to QID on 08/08, but most recent rx was for three times a day. Can not confirm with patient, son, or neighbor (who helps with medications) whether the patient has increased to QID levothyroxine 25 mcg tablet 25 mcg PO DAILY@0630 warfarin [Jantoven] 3 mg Tablet 3 mg PO DAILY@1800 Qty: 30 0RF
[2022-09-03 06:36] VITALS: BP 135/37; PULSE 87; RESP 22; TEMP 37.4; O2SAT 96; BMI 41.5
[2022-09-03 06:39] LABS: MANUAL DIFF FLAG NO
[2022-09-03 06:43] LABS: Basophils Percent Auto 0.3 % (0-2); Eosinophils Absolute Auto 0.3 X10*3/uL (0.0-0.4); Eosinophils Percent Auto 3.7 % (0-4); Hematocrit 45.5 % (37.0-47.0); Hemoglobin 15.1 g/dl (12.0-16.0); Imm Gran Abs Auto 0.02 X10*3/uL (0.00-0.03); Imm Gran Pct Auto 0.2 % (0.0-0.4); Lymphocytes Absolute Auto 1.7 X10*3/uL (1.2-4.9); Lymphocytes Percent Auto 19.2 % (20-40); Mean Corpuscular HGB Conc 33.2 g/dl (31.0-35.0); Mean Corpuscular Hemoglobin 28.9 pg (27.0-33.0); Mean Corpuscular Volume 87.2 fL (80.0-98.0); Mean Platelet Volume 9.6 fL (9.4-12.3); Monocytes Absolute Auto 0.8 X10*3/uL (0.1-1.2); Monocytes Percent Auto 9.6 % (2-11); Neutrophils Absolute Auto 5.8 x10*3/uL (2.0-8.3); Platelet Count 305 X10*3/uL (160-400); Red Blood Count 5.22 X10*6/uL (4.20-5.50); Red Cell Distribution Width 13.5 % (11.0-16.0); White Blood Count 8.7 X10*3/uL (4.8-10.8)
[2022-09-03 06:45] LABS: INTERNATIONAL NORM RATIO 1.2 (0.9-1.1); Prothrombin Time 13.8 SEC (10.0-13.1)
[2022-09-03 06:49] LABS: Lactic Acid 1.5 mmol/L (0.5-2.0)
[2022-09-03 06:50] LABS: Stroke Lab Use COMPLETE
[2022-09-03] MEDS: 0.9 % Sodium Chloride 1,000 ML 999 ML IV (06:53)
[2022-09-03 06:54] LABS: Alanine Aminotransferase 16 U/L (0-31); Albumin Level 3.4 g/dL (3.5-5.0); Alkaline Phosphatase 71 U/L (39-117); Anion Gap 16 (12-20); Aspartate Amino Transferase 17 U/L (5-31); Bilirubin Total 0.5 mg/dL (0.0-1.0); Blood Urea Nitrogen 14 mg/dL (9-16); Carbon Dioxide 24 mmol/L (22-29); Chloride 103 mmol/L (96-108); Creatinine Clr Calc Pharmacy 84.7; Estimated Glomerular Filt Rate > 60; Glucose Random 132 mg/dL (60-115); Sodium 139 mmol/L (135-145); Total Protein 5.6 g/dL (6.5-8.0)
[2022-09-03 07:04] LABS: Troponin-I High Sensitivity < 3.5 ng/L (<3.5-17.0)
--- NOTE | 2022-09-03 07:06 | PC.NURSE ---
JOSÉ LUIS [facility] to assess for possible stroke presenting with AMS: not responding appropriately, mumbled speech, numbness to whole body, last well known time 2:00-3:[address], Labs, POC, and PT/INR via coagucheck obtained, 20 G IV line placed to pelletier wrist. Patient is alert and orient x3, answers questions appropriately. Provider at bedside.
--- NOTE | 2022-09-03 07:08 | MHC.EDTECH ---
patient refuse POC Dr aware and RN aware.
[2022-09-03 07:17] LABS: Influenza A PCR NEGATIVE (Negative); Influenza B PCR NEGATIVE (Negative); Resp Syncy Virus RNA Qual PCR NEGATIVE (Negative); SARS COV2 PCR INHOUSE NEGATIVE (Negative)
--- NOTE | 2022-09-03 07:34 | PC.NURSE ---
report taken from abdulaziz rn pt here for reported unresponsiveness at snf pt resides at, pt denies recollection of event. brought in as stroke alert, no evidence of stroke on first contact, clear speech neuros grossly intact. labs drawn and pt medicated per emar prior to this rn arrival. denies any physical complaints at this time, baseline bl leg tenderness per pt, appears swollen, red, +2 pitting edema. pt verbally inappropriate throughout entire interaction, frequently redirected. pt able to assist in repositioning, awaiting ct scan results, awaiting ua spec. wctm for dc needs.
[2022-09-03 09:08] LABS: Appearance Urine Clear; Color Urine Yellow; Glucose Urine UA Negative (Negative); Leukocyte Esterase Urine Small (1+) (Negative); Nitrite Urine Negative (Negative); Specific Gravity - Urine <= 1.005 (1.005-1.025); UMIC TRIGGER UACC YES; Urine Blood Negative (Negative); Urine Ketones Negative (Negative); Urine Protein Negative (Neg-Trace)
[2022-09-03 09:24] LABS: Bacteria Urine 1+ (None Seen); Hyaline Casts Urine 0-2 /LPF (0-2); Other Crystals Urine Present; RBC Urine 0-2 /HPF (0-2); UACC Culture Trigger YES
--- NOTE | 2022-09-03 10:55 | MHC.EDTECH ---
patient refuse BP , PT stated That it hurts and her BP is fine RN aware.
--- NOTE | 2022-09-03 11:53 | MHC.EDTECH ---
Cleaned patient and changed bedding due to patient urinating on sheets and covers. Argenis Cheema
--- NOTE | 2022-09-03 15:11 | PC.NURSE ---
pt continuing to refuse vs
== END 2022-09-03 15:12 | disposition home or self-care (01) ==
PROVIDERS: Internal Medicine; Emergency Provider Emergency Medicine; PCP Emergency Medicine
DX: R41.82 Altered mental status, unspecified (principal); R20.0 Anesthesia of skin; M79.662 Pain in left lower leg; M79.661 Pain in right lower leg; R60.0 Localized edema; Z20.822 Contact with and (suspected) exposure to COVID-19; Z20.828 Contact with and (suspected) exposure to other viral communicable diseases; Z86.718 Personal history of other venous thrombosis and embolism; Z79.01 Long term (current) use of anticoagulants; Z79.899 Other long term (current) drug therapy
CPT/HCPCS: 0241U; 36415; 70450; 80053; 81001; 82947; 83605; 83735; 84484; 85025; 85610; 85730; 87040; 87086; 93005; 96360; 96361; 99285